=== PATIENT | male | born 1975 | race Hispanic/Latino ===

== ENCOUNTER 2022-05-09 21:39 | Emergency (ER) | payer OTHER ==
--- OUTSIDE RECORDS SUMMARY | 2022-05-09 21:48 | XMS REPORT | Continuity of Care Document ---
:[address] [facility] t Address [address] Parra [address] [place] [id number] Care Team Providers Name Role Phone No MD, Pcp Primary Care Physician Unavailable Senait Bean Attending Clinician Unavailable Kristy OWENS APRN, [place] Attending Clinician Unknown, Physician Attending Clinician Unavailable SHARONDA WAGNER APRN Attending Clinician Unavailable SARKIS RAMIREZ M.D. Attending Clinician Unavailable David Vogt Attending Clinician DAVID VOGT M.D. Attending Clinician Unavailable Sarkis Ramirez Attending Clinician Sharonda Wagner Attending Clinician Unavailable SHARONDA WAGNER, IKE Attending Clinician Unavailable Helga Paige Attending Clinician JIMBO HUMPHRIES M.D. Attending Clinician Unavailable Kevin Sosa Attending Clinician Luz Bishop Attending Clinician Sarkis Ramirez Admitting Clinician Helga Paige Admitting Clinician Jackie Dinh Admitting Clinician Luz Bishop Admitting Clinician Payers Payer Name Policy Type Policy Number Effective Date Expiration Date [place] MEDICARE PART A [id number] 2018 AND B 00:00:00 Problems Condition Condition Condition Status Onset Resolution Last Treating Co mments Source Name Details Category Date Date Treatment Clinician Date BENIGN BENIGN Diagnosis Active 2017-042018-08-01 Me moria PROSTATIC PROSTATIC 05-03 06:15:00 l HYPERPLASI HYPERPLASI 00:00: He kanwal A WITH A WITH 00 LOWER LOWER Active 03/03/2018 [facility] LOCALIZATI LOCALIZAT Diagnosis Active 2018-02-11 Memoria ON-RELATED ION-RELATE 01-23 10:44:00 l (FOCAL) D (FOCAL) 00:00: Maicol charles (PARTIAL) (PARTIAL) 00 S S Active 01/23/2018 [facility] I63.9 - I63.9 - Diagnosis Active 2017-10-17 Memoria CEREBRAL CEREBRAL 05-15 11:30:00 l INFARCTION INFARCTION 00:01: He kanwal , , 00 UNSPECIFI UNSPECIFI Active 05/15/2017 [facility] [place] CHEST CHEST Diagnosis Active 2015-12-22 Mem oria PAIN.SOB PAIN.SOB 12-21 12:19:00 l Active 00:00: Carl 12/22/2015 [facility] NUMBNESS NUMBNESS Diagnosis Active 2015-12-27 Memoria Active 12-21 14:25:00 l 12/22/2015 00:00: Maiocl charles [address] SHIMA SHIMA Diagnosis Active 2015-10-13 Memoria BILLING BILLING 10-12 23:10:00 l LFLT #2897 LFLT #2897 00:00: Fidel schofield Active 00 10/13/2015 [facility] CVA CVA Diagnosis Active 2015-10-21 Mem oria Active 10-12 13:00:00 l 10/13/2015 00:00: Maicol charles [address] CVA VS NOS CVA VS Diagnosis Active 2015-10-21 Memoria SEIZURE NOS - 13:15:00 l SEIZURE 00:00: Carl Active 00 09/27/2015 [facility] Personal Personal Problem 2018-08-29 Memoria history of history of 11:05:28 l nicotine nicotine Maicol n dependence dependence 08/29/2018 [facility] Depressive Depressiv Problem Resolve 2018-08-29 Memoria disorder e disorder d 11:05:28 l (disorder) (disorder) He rmann Resolved Problem 08/29/2018 [facility], RAYMUNDO Henry, RAYMUNDO [place] Diabetes Diabetes Problem Resolve 2018-08-29 Memoria mellitus mellitus d 11:05:28 l (disorder) (disorder) He rmann Resolved Problem 08/29/2018 per patient's , DMII has been resolved for over 1 year [facility] [place] Hypertensi Hypertens Problem Resolve 2018-08-29 Memoria ve yuki d 11:05:28 l disorder, disorder, Herm donnie systemic systemic arterial arterial (disorder) (disorder) Resolved Problem 08/29/2018 [facility], RAYMUNDO Henry, RAYMUNDO [place] Posttrauma Problem Resolve 2018-08-29 Memoria tic stress Posttrauma d 11:05:28 l disorder tic stress Herm donnie (disorder) disorder (disorder) Resolved Problem 08/29/2018 [facility], RAYMUNDO Henry, RAYMUNDO [place] Seizure Seizure Problem Resolve 2018-08-29 M emoria (finding) (finding) d 11:05:28 l Resolved Carl Problem 08/29/2018 last seizure in 2018 [facility], RAYMUNDO Henry, RAYMUNDO [place] Cerebrovas Cerebrova Problem Resolve 2018-08-29 Memoria cular scular d 11:05:28 l accident accident Maicol n (disorder) (disorder) Resolved Problem 08/29/2018 residual right hand weakness [facility], RAYMUNDO Henry, RAYMUNDO [place] Transient Transient Problem Resolve 2018-08-29 Memoria ischemic ischemic d 11:05:28 l attack attack Carl (disorder) (disorder) Resolved Problem 08/29/2018 [facility], RAYMUNDO Henry, RAYMUNDO [place] CEREBRAL CEREBRAL Diagnosis Active 2015-10-21 Memoria INFARCTION INFARCTION 13:15:00 l , , Carl UNSPECIFIE UNSPECIFIE D D Active [facility] CEREBELLAR CEREBELLA Diagnosis Active 2015-10-21 Memoria STROKE R STROKE 13:00:00 l SYNDROME SYNDROME Maicol n Active [facility] ILLNESS, ILLNESS, Diagnosis Active 2015-12-27 Memoria UNSPECIFIE UNSPECIFIE 14:25:00 l D D Active Carl [facility] [id number] Type 2 Problem Active Common diabetes Spirit mellitus [facility] long-term current use of insulin [id number] Episode of Problem Active Co mmon recurrent Spirit major - [facility] depressive [facility] disorder, [facility] unspecifie [facility] Center depression episode severity [id number] Essential Problem Active Comm on (primary) Spirit hypertensi - [facility] on [facility] [id number] Seizure Problem Active Commo n disorder [facility] Gastroesop GERD Problem Active Commo n hageal without Spirit reflux esophagiti - [facility] disease s [facility] Primary Primary Problem Active Common insomnia insomnia [facility] [id number] CANDE Problem Active Common (generaliz Spirit ed anxiety - [facility] disorder) [facility] [id number] Mixed Problem Active Common hyperlipid [facility] emia [facility] [id number] Balanitis Problem Active Comm on Spirit [facility] No known No known Disease UT active active Health problems problems History of History of Problem Resolve UT type 2 type 2 d Physici diabetes diabetes ans mellitus mellitus History of History of Problem Resolve UT hypertensi hypertensi d Ph ysici on on ans Hyperlipid Hyperlipid Problem Active U T emia emia Physici ans JEAN JEAN Problem Active UT (obstructi (obstructi Ph ysici ve sleep ve sleep ans apnea) apnea) Pseudobulb Pseudobulb Problem Active U T ar affect ar affect Phys ici ans Insomnia Insomnia Problem Active UT Physici ans Sleep Sleep Problem Active UT apnea apnea Physici ans Cognitive Cognitive Problem Active UT impairment impairment Ph ysici ans 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 complex complex partial partial seizures, seizures, not not intractabl intractabl e, without e, without status status epilepticu epilepticu s s Essential Essential Problem Active UT (primary) (primary) Phys ici hypertensi hypertensi an s on on 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 complex complex partial partial seizures, seizures, intractabl intractabl e, without e, without status status epilepticu epilepticu s s Preoperati Preoperati Problem Active U T ve ve Physici evaluation evaluation an s of a of a medical medical condition condition to rule to rule out out surgical surgical contraindi contraindi cations cations (TAR (TAR required) required) Erectile Erectile Problem Active UT dysfunctio dysfunctio Ph ysici n n ans Lower Lower Problem Active UT urinary urinary Physici tract tract ans symptoms symptoms (LUTS) (LUTS) BPH BPH Problem Active UT (benign (benign Physici prostatic prostatic ans hyperplasi hyperplasi a) a) Partial Partial Problem Active UT seizures seizures Physic i ans 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 Family History Family Member Diagnosis Comments Start Date Stop Date Source Mother Family history of Unknown [facility] Physicians and unspecified causes of morbidity Father Family history of Unknown [facility]icians and unspecified causes of morbidity Social History Social Habit Start Date Stop Date Quantity Comments Source History of Common Spirit - Tobacco Use [facility] Sex Assigned At Common Sp katy - [facility] Tobacco use and 2022-04-11 2022-04-11 Smokeless tobacco [facility] exposure 00:00:00 00:00:00 non-user Exposure to 2022-03-31 2022-04-10 Not sure [facility] SARS-CoV-2 00:00:00 12:56:00 (event) Social History 2018-07-23 2018-07-23 [facility] 16:50:40 16:50:40 Smoking Status Start Date Stop Date Source Tobacco smoking [facility] consumption unknown Never smoked tobacco [facility] Former Smoker 2022-01-04 00:00:00 2022-01-04 Common Spiri t - [facility] 00:00:00 [facility] Medications Ordered Filled Start Stop Current Ordering Indication Dosage Frequency Signature Comments Components Source Medication Medication Date Date Medication? Clinician (SIG) Name Name Mupirocin 2 Mupirocin 2 2021- No 1{appli BID Mupirocin % % 01-04 cation} 2 % 00:00: 00:00 00 :00 zolpidem Yes QD Take by UT (Ambien) 10 8-25 mouth at Heal th MG tablet 11:51: night if 42 needed. sertraline Yes 100mg QD Take 100 UT (Zoloft) 8-25 mg by Health 100 MG 11:50: mouth 1 tablet 59 (one) time each day. Nutritional Yes Take by UT Supplements 8-25 mouth. Health (VITAMIN D 11:50: BOOSTER PO) 27 amLODIPine Yes QD Take by UT (Norvasc) 8-25 mouth 1 Health 10 MG 11:49: (one) time tablet 46 each day. hydrALAZINE Yes Take by UT (Apresoline 8-25 mouth. [facility] ) 10 MG 11:49: tablet 21 metFORMIN Yes 850mg Take 850 UT (Glucophage 8-25 mg by [facility] ) 850 MG 11:49: mouth in tablet 03 the morning and 850 mg in the evening. Take with meals. Nystatin-Tr Nystatin-Tr 2021- No 1{appli BID Nystatin-T iamcinolone iamcinolone 8-15 08-29 cation} riamcinolo 231034-7.1 [id number] 00:00: 00:00 ne UNIT/GM UNIT/GM 00 :00 [id number] UNIT/GM levETIRAcet Yes UT am XR 3-16 Health (Keppra XR) 00:00: 750 mg 00 tablet sustained-r elease 24 hour 24 hr tablet Topiramate Topiramate Yes SHARONDA Take 25 mg UT 25 MG Oral 25 MG Oral 4-09 OKPALA po qhs x 1 Physici Tablet Tablet 00:00: FORK LIFT TECHNICIAN week, then ans 00 50 mg q day for 1 week and then 50 mg po bid Ibuprofen Ibuprofen Yes SANDYACHI TAKE ONE UT 600 MG Oral 600 MG Oral 4-08 OKPALA TABLET Physici Tablet Tablet 00:00: FORK LIFT TECHNICIAN ONCE A DAY ans 00 NEEDED Omeprazole 2019-0 Yes 20mg 20 mg. UT 20 MG 3-16 Health Tablet 00:00: Delayed 00 Release Dispersible Norvasc 10 Norvasc 10 Yes QD TAKE 1 UT MG Oral MG Oral 3-16 TABLET Physici Tablet Tablet 00:00: DAILY ans 00 DIRECTED. Bystolic 10 Bystolic 10 2019- Yes 1 QD TAKE 1 UT MG Oral MG Oral 3-16 TABLET Physici Tablet Tablet 00:00: DAILY. ans 00 Omeprazole Omeprazole Yes Q0.5D TAKE 1 UT 20 MG Oral 20 MG Oral 3-16 TABLET P hysici Tablet Tablet 00:00: TWICE ans Delayed Delayed 00 DAILY. Release Release Disintegrat Disintegrat ing ing Ciprofloxac Yes 500 mg = 1 Memoria in 500 MG 4-05 tab, PO, l Oral Tablet 13:34: Q12H, for H ermann [Cipro] 00 UTI, X 3 day, # 6 tab, 0 Refill(s) Acetaminoph No 1 - 2 tab, Memoria en 300 MG / 4-05 PO, Q4H, l Codeine 13:34: PRN Pain, Chloé nn Phosphate 00 X 2 day, # 30 MG Oral 20 tab, 0 Tablet Refill(s) [Tylenol with Codeine #3] Phenazopyri No 200 mg = 1 Memoria dine 4-05 tab, PO, l hydrochlori 13:34: TID, PRN He rmann de 200 MG 00 Dysuria, X Oral Tablet 2 day, # 6 [Pyridium] tab, 0 Refill(s) ePHEDrine No Route: IV, Me moria (ANES) 08-01 Drug form: l 13:18: INJ, ONCE, Carl 00 Stop date: 08/01/18 8:18:00 CDT ondansetron No Route: IV, Memoria (ANES) 08-01 Drug form: l 13:18: INJ, ONCE, [place] [address] Stop date: 08/01/18 8:18:00 CDT midazolam 2018- No Route: IV, Me moria (ANES) 08-01 Drug form: l 13:14: SOLN, Carl 00 ONCE, Stop date: 08/01/18 8:14:00 CDT fentaNYL 2018- No Route: IV, Mem oria (ANES) 08-01 Drug form: l 13:14: INJ, ONCE, [place] Stop date: 08/01/18 8:14:00 CDT propofol 2019-0 No Route: IV, Mem oria (ANES) - Drug form: l 13:14: INJ, ONCE, Stop date: 08/01/18 8:14:00 CDT ceFAZolin No Route: IV, Me moria (ANES) 4-05 Drug form: l 13:14: INJ, ONCE, Stop date: 08/01/18 8:14:00 CDT lidocaine 2018- No Route: IV, Me moria (ANES) 08-01 Drug form: l 13:14: INJ, ONCE, Stop date: 08/01/18 8:14:00 CDT Ondansetron 2018- No Notes: Lito az -05 (Same as: l 13:08: Zofran) MEDICATION WASTE Product Size: 4 mg Product Wasted: ___ mg Labetalol No 10 mg, 2 Lito az 4-05 mL, Route: l 13:08: IVP, Drug form: INJ, Q5Min, Dosing Weight 106.818, kg, PRN Elevated BP, Start date: 08/01/18 8:08:00 CDT, Duration: 5 doses or times, Stop date: 08/02/18 0:00:00 CDT Oxycodone No Notes: Memori a 4-05 (Same as: l 13:08: Roxicodone ) Flumazenil 2018- No Notes: Memor ia -05 (Same as: l 13:08: Romazicon) Hydromorpho No Notes: Lito az ne 4-05 Same as l 13:08: Dilaudid Naloxone 2018- No Notes: Memoria 4-05 Same as l 13:08: Narcan ciprofloxac No Route: IV, Memoria in (ANES) 2 05 Drug form: l mg 12:43: INJ, Start date: 08/01/18 7:43:00 CDT, Stop date: 08/01/18 8:43:00 CDT Lactated No Route: IV, Mem oria Ringers 4-05 Total l Injection 12:34: Volume: Chloé nn IV (ANES) 00 1,000, 1000 mL Start date: 08/01/18 7:34:00 CDT, Stop date: 08/01/18 8:34:00 CDT Tylenol 2018- No 1,000 mg, Memor ia 08-01 Route: PO, l 11:57: ONCE, Dosing Weight 104.545, kg, Start date: 08/01/18 6:57:00 CDT, Stop date: 08/01/18 6:57:00 CDT Nuedexta 2018-0 Yes PO, Q12H, Lito az 3-27 0 l 16:59: Refill(s) Carl clopidogrel 2018-0 Yes 75 mg = 1 M emoria 75 MG Oral 3-27 tab, PO, l Tablet 16:59: Daily, Marcellus Henry [Plavix] 00 90 tab, 3 Refill(s) amitriptyli 2019-0 Yes 50 mg = 1 M emoria ne 50 mg 3-27 tab, PO, l oral tablet 16:59: Bedtime, Marcellus Henry 00 90 tab, 0 Refill(s) lacosamide 2019-0 Yes 200 mg = 1 M emoria 200 MG Oral 3-27 tab, PO, l Tablet 16:59: BID, # 30 Maicol charles [Vimpat] 00 day, 0 Refill(s) Eszopiclone 2018-0 Yes 3 mg = 1 Me moria 3 MG Oral 3-27 tab, PO, l Tablet 16:59: Bedtime, Carl [Lunesta] PRN for insomnia, # 30 tab, 0 Refill(s) Prazosin 2019-0 Yes 6 mg, PO, Lito az 3-27 QPM, 0 l 16:59: Refill(s) dexlansopra 2018-0 Yes 60 mg = 1 M emoria zole 60 MG 3-27 cap, PO, l Enteric 16:59: Daily, Marcellus charles Coated 30 cap, 0 Capsule Refill(s) [Dexilant] alfuzosin 2019-0 Yes 10 mg = 1 Mem oria 10 mg oral 3-27 tab, PO, l tablet, 16:59: Daily, # Maicol n extended 00 90 tab, 0 release Refill(s) QUEtiapine Yes 100 mg = 1 M emoria 100 mg oral 3-27 tab, PO, l tablet 16:59: Bedtime, # Chloé nn 00 30 tab, 1 Refill(s) nebivolol Yes 10 mg = 1 Mem oria 10 MG Oral 3-27 tab, PO, l Tablet 16:59: QAM, # 30 Maicol n [Bystolic] 00 tab, 0 Refill(s) donepezil Yes 10 mg = 1 Mem oria 10 mg oral 3-27 tab, PO, l tablet 16:59: QPM, # 90 Maicol n 00 tab, 1 Refill(s) levETIRAcet levETIRAcet Yes SARKIS 2 Q0.5D TAKE 2 UT am ER 750 am ER 750 2-01 RAMIREZ TABLET Physici MG Oral MG Oral 00:00: M.D. TWICE ans Tablet Tablet 00 DAILY Extended Extended Release 24 Release 24 Hour Hour cloBAZam 10 cloBAZam 10 Yes SARKIS Q0.5D TAKE 2 UT MG Oral MG Oral 2-01 RAMIREZ TABLET Phy sici Tablet Tablet 00:00: M.D. Twice ans 00 daily sertraline 2017-04 Yes 100 mg = 1 M emoria 100 mg oral 0-13 tab, PO, l tablet 23:24: Daily, 0 Carl 00 Refill(s) clopidogrel Yes TAKE 1 UT (Plavix) 75 4-13 TABLET Health MG tablet 00:00: DAILY 00 Clopidogrel Clopidogrel Yes MUNACHI 1 QD TAKE 1 UT Bisulfate Bisulfate 4-13 OKPALA TABLET P hysici 75 MG Oral 75 MG Oral 00:00: FORK LIFT TECHNICIAN DAILY ans Tablet Tablet 00 Vimpat 150 Vimpat 150 2016-04 Yes SARKIS 2 Q0.5D TAKE 2 UT MG Oral MG Oral 2-15 RAMIREZ TABLET Phy sici Tablet Tablet 00:00: M.D. TWICE ans 00 DAILY Donepezil Donepezil 2016-04 Yes MUNACHI QD TAKE 1 UT HCl - 10 MG HCl - 10 MG 2-04 OKPALA TABLET Physici Oral Tablet Oral Tablet 00:00: FORK LIFT TECHNICIAN DAILY AT ans 00 BEDTIME Alfuzosin Alfuzosin Yes RUN VOGT 1 QD TAKE 1 UT HCl ER 10 HCl ER 10 8-24 M.D. TABLET Phy sici MG Oral MG Oral 00:00: DAILY. ans Tablet Tablet 00 Extended Extended Release 24 Release 24 Hour Hour Norvasc No Notes: Memoria 12-23 (Same as: l 14:00: Norvasc) Metformin No 500 mg, 1 Mem oria hydrochlori 12-23 tab, l de 500 MG 14:00: Route: PO, He ann Oral Tablet 00 Drug form: TAB, Daily, Dosing Weight 101.364, kg, Start date: 12/24/15 9:00:00 CDT, Duration: 30 day, Stop date: 01/22/16 9:00:00 CDT atorvastati No Notes: Lito az n 12-23 Same as l 02:00: Lipitor Amitriptyli No Notes: Lito az ne 12-23 (Same as: l 02:00: Elavil) Celexa No Notes: Memoria 12-22 (Same As: l 18:00: CeleXA) Levetiracet Yes 750 mg = 1 Memoria am 750 MG 12-22 tab, PO, l Oral Tablet 16:27: Q12H, # 60 Carl [Keppra] 00 tab, 3 Refill(s) Saline No Notes: Memoria Flush 0.9% 12-22 Same as: l 14:00: BD Posiflush Sterile Docusate No Notes: Memoria 8- (Same as: l 14:00: Colace) (Do Not Crush) pantoprazol No Notes: For Memoria e - IV push l 14:00: reconstitu te with 10 ml 0.9% sodium chloride and push over 2 minutes. (Same as: Protonix) Levetiracet No Notes: Lito az am 750 MG 12-22 (Same l Oral Tablet 14:00: as:Keppra) Carl [Keppra] 00 Keppra No Notes: Memoria 8- Same as l 14:00: Keppra Mix with 100 mL NS, LR or D5W MEDICATION WASTE Product Size: 500 mg Product Wasted: ___ mg Eliquis No Notes: Memoria 12-22 Same as: l 14:00: Eliquis Levetiracet No 500 mg, 1 M emoria am 500 MG 12-22 tab, l Oral Tablet 13:58: Route: PO, Carl [Keppra] 00 ONCE, Dosing Weight 101.364, kg, Start date: 12/23/15 8:58:00 CDT, Stop date: 12/23/15 8:58:00 CDT Metformin Yes 500 mg = 1 Me moria hydrochlori 12-22 tab, PO, l de 500 MG 12:06: Daily, Maicol n Oral Tablet 00 take with a meal, # 30 tab, 1 Refill(s) Versed No Notes: Memoria 12-22 (Same as: l 05:11: Versed) MEDICATION WASTE Product Size: 5 mg Product Wasted: ___ mg Saline No Notes: Memoria Flush 0.9% 12-22 Same as: l 03:26: BD Posiflush Sterile Acetaminoph No Notes: Do M emoria en 12-22 not exceed l 03:26: 4 gm/day. (Same as: Tylenol) Bisacodyl No Notes: Memori a 12-22 (Same As: l 03:26: Dulcolax, Bisco-Lax) enalapril No Notes: Memori a 12-22 (Same as: l 03:26: Vasotec-IV ) Labetalol No 105 mmHg, Me moria 12-22 Priority: l 03:26: Routine, [place] Start date: 12/22/15 22:26:00 CDT, Duration: 30 day, Stop date: 01/21/16 22:25:00 CDT Sodium No 1,000 mL, Memori a Chloride 12-22 Rate: 75 l 0.154 03:26: ml/hr, [place] MEQ/ML 00 Infuse Injectable over: 13.3 Solution hr, Route: IV, Dosing Weight 101.364 kg, Total Volume: 1,000, Start date: 12/22/15 22:26:00 CDT, Duration: 30 day, Stop date: 01/21/16 22:25:00 CDT BD Normal No Notes: Memori a Saline 12-22 (Same as: l Flush 02:00: BD Carl 00 Posiflush) Iohexol No Notes: Memoria 12-21 (same l 17:55: as:Omnipaq Carl 00 ue 350). Saline No Notes: Memoria Flush 0.9% 12-21 (Same as: l 17:14: BD Carl 00 Posiflush) Nuedexta Nuedexta Yes MUNACHI take 1 UT 20-10 MG 20-10 MG 12-19 OKPALA capsule Ph ysici Oral Oral 00:00: FORK LIFT TECHNICIAN twice a ans Capsule Capsule 00 day atorvastati Yes TAKE 2 UT n (Lipitor) 11-29 TABLET Health 40 MG 00:00: BEDTIME tablet 00 Atorvastati Atorvastati Yes 2 TAKE 2 UT n Calcium n Calcium 11-29 TABLET Phy sici 40 MG Oral 40 MG Oral 00:00: BEDTIME ans Tablet Tablet 00 apixaban 5 Yes 5 mg = 1 Mem oria mg oral 6-21 tab, PO, l tablet 13:19: Q12H, # 60 Chloé nn 00 tab, 2 Refill(s) atorvastati Yes 80 mg = 2 M emoria n 40 mg 6-21 tab, PO, l oral tablet 13:19: Bedtime, # [place] 00 90 tab, 0 Refill(s) Eliquis No Notes: Memoria 6-21 Same as: l 02:00: Eliquis Carl Magnesium No Notes: Memori a Sulfate -20 WASTE: F/P l 15:00: - Sink; E Carl 00 - Municipal Trash Bin Nexium No 40 mg, Memoria 6-20 Route: PO, l 14:00: Daily, [place] 00 Dosing Weight 105, kg, Start date: 10/17/15 9:00:00 CDT, Duration: 30 day, Stop date: 11/15/15 9:00:00 CDT Calcium No Notes: Memoria Gluconate 10-16 WASTE: F/P l 13:46: - Sink; E Carl 00 - Municipal Trash Bin Protonix No 40 mg, 1 Memor ia 6-20 tab, l 12:30: Route: PO, Carl 00 Drug form: ECTAB, Before Breakfast, Start date: 10/17/15 7:30:00 CDT, Duration: 30 day, Stop date: 11/15/15 7:30:00 CDT sodium No 1,000 mL, Memori a chloride 20 Rate: 75 l 0.9% 1000 05:01: ml/hr, Maicol n ml INJ 00 Infuse 1,000 mL over: 13.3 hr, Route: IV, Dosing Weight 105 kg, Total Volume: 1,000, Start date: 10/17/15 0:01:00 CDT, Duration: 30 day, Stop date: 11/16/15 0:00:00 CDT Acetaminoph No Notes: Do M emoria en 18 not exceed l 19:59: 4 gm/day. [place] (Same as: Tylenol) Docusate No Notes: Memoria 6-18 (Same as: l 17:00: Colace) Carl (Do Not Crush) atorvastati No Notes: Lito az n -18 Same as l 02:00: Lipitor [place] 00 iodixanol No Notes: Memori a -17 (Same as: l 21:26: Visipaque) Carl 00 . WASTE: F/P - Black; E - Municipal Trash Bin heparin No 500 mL, Memoria additive 6-17 Rate: l 25,000 unit 19:12: 23.24 Chloé nn [14 00 ml/hr, unit/kg/hr] Infuse + Premix over: 21.5 Diluent hr, Route: Dextrose 5% IV, Dosing 500 mL Weight 83 kg, Total Volume: 500 mL, Start date: 10/14/15 14:12:00 CDT, Duration: 30 day, Stop date: 11/13/15 14:11:00 CDT Levetiracet Yes 500 mg = 1 Memoria am 500 MG 6-17 tab, PO, l Oral Tablet 16:37: BID Maicol n [Keppra] Citalopram Yes 20 mg = 1 Me moria 20 MG Oral 6-17 tab, PO, l Tablet 16:37: Daily Carl [Celexa] Amlodipine Yes 10 mg = 1 Me moria 10 MG Oral 6-17 tab, PO, l Tablet 16:37: Daily Carl [Norvasc] atorvastati No 80 mg = 2 M emoria n 40 mg 6-17 tab, PO, l oral tablet 16:37: Bedtime Her sheehan amitriptyli Yes 10 mg = 1 M emoria ne 10 mg 6-17 tab, PO, l oral tablet 16:37: Bedtime Her sheehan Aspirin 325 No 325 mg = 1 Memoria MG Oral 6-17 tab, PO, l Tablet 16:37: Daily Carl Insulin Yes 8 unit, Memoria Glargine 6-17 SUB-Q, BID l 100 UNT/ML 16:37: [place] Injectable 00 Solution [Lantus] nebivolol No 10 mg = 1 Mem oria 10 MG Oral 6-17 tab, PO, l Tablet 16:37: Daily [place] [Bystolic] warfarin No 7.5 mg = 1 Mem oria 7.5 mg oral 6-17 tab, PO, l tablet 16:37: Daily, 0 Carl 00 Refill(s) Nexium Yes 40 mg, PO, Memor ia 6-17 Daily, 0 l 16:37: Refill(s) [place] aspirin 325 No Notes: (Do Memoria mg tablet, 6-17 Not Crush) l enteric 14:06: Do not Carl coated 00 crush or chew. Celexa No 10 mg, 1 Memoria 6-17 tab, l 14:00: Route: PO, Carl 00 Drug form: TAB, Daily, Dosing Weight 105, kg, Start date: 10/14/15 9:00:00 CDT, Duration: 30 day, Stop date: 11/12/15 9:00:00 CDT Keppra No Notes: Memoria 6-17 (Same l 14:00: as:Rosariora) Saline No Notes: Memoria Flush 0.9% 10-13 Same as: l 14:00: BD Posiflush Sterile Aspirin No 325 mg, Memoria 6-17 Route: PO, l 14:00: Drug form: TAB, Daily, Dosing Weight 105, kg, Start date: 10/14/15 9:00:00 CDT, Duration: 30 day, Stop date: 11/12/15 9:00:00 CDT heparin No Notes: Memoria -17 porcine l 13:00: heparin Dextrose No 12.5 gm, Memor ia 50% Syringe 10-13 25 mL, l 11:42: Route: IVP, Drug Form: INJ, Dosing Weight 105, kg, PRN, PRN Abnormal Lab Result, Start date: 10/14/15 6:42:00 CDT, Duration: 30 day, Stop date: 11/13/15 6:41:00 CDT Regular No 60 units) Lito az Insulin, 10-13 WASTE: F/P l Human 100 11:42: - Black; E He rmann UNT/ML 00 - Injectable Municipal Solution Trash Bin Stable for 28 days at room temperatur e Expires in days from ____Date Labetalol No 10 mg, 2 Lito az 6-17 mL, Route: l 09:16: IVP, Drug form: INJ, Q15Min, Dosing Weight 115.909, kg, PRN Hypertensi on, Start date: 10/14/15 4:16:00 CDT, Duration: 30 day, Stop date: 11/13/15 4:15:00 CDT Hydralazine No Notes: Lito az 6-17 (Same as: l 09:16: Apresoline ) Push over 5 minutes Versed No Notes: Memoria 6-17 (Same as: l 08:25: Versed) MEDICATION WASTE Product Size: 5 mg Product Wasted: ___ mg Saline No Notes: Memoria Flush 0.9% 6-17 Same as: l 04:50: BD [place] Posiflush Sterile Labetalol No 105 mmHg, Me moria 6-17 Priority: l 04:50: Routine, Carl 00 Start date: 10/13/15 23:50:00 CDT, Duration: 30 day, Stop date: 11/12/15 23:49:00 CDT Sodium No 1,000 mL, Memori a Chloride 10-13 Rate: 75 l 0.154 04:50: ml/hr, [place] MEQ/ML 00 Infuse Injectable over: 13.3 Solution hr, Route: IV, Dosing Weight 115.909 kg, Total Volume: 1,000, Start date: 10/13/15 23:50:00 CDT, Duration: 30 day, Stop date: 11/12/15 23:49:00 CDT iodixanol No 99 mL, Memori a 6-17 Route: l 03:51: IVP, Drug Form: SOLN, kg, ONCALL, STAT, Start date: 10/13/15 22:51:00 CDT, Duration: 1 doses or times, Dose = 2.2ml/kg, Max dose = 100ml -- "To be infused by Radiology Staff ONLY" Saline No Notes: Memoria Flush 0.9% 6-17 (Same as: l 03:23: BD Carl 00 Posiflush) insulin Yes 10 unit, Memori a glargine 6-06 SUB-Q, l 100 16:44: Q12H, # 10 Carl units/mL 00 mL, 4 subcutaneou Refill(s) s solution insulin No 10 unit, Memori a glargine 6-06 SUB-Q, l 100 15:38: Q12H, # 10 Carl units/mL 00 mL, 1 subcutaneou Refill(s) s solution Citalopram Yes 10 mg = 1 Me moria 10 MG Oral 10-02 tab, PO, l Tablet 14:18: Daily, [place] [Celexa] 00 Weaning off Wellbutrin as thsi medication can lower seizure threshold. Currently on 100mg TID. Will start to wean off today- 100mg BID x 3 days, then 50mg BID x 3 days, then start Celexa 20mg qd, # 90 tab, 0 Refill(s) warfarin 5 Yes 5 mg = 1 Mem oria mg oral 6-06 tab, PO, l tablet 14:17: Daily, Carl 00 Please follow up with PCP, # 5 tab, 0 Refill(s) pantoprazol Yes 40 mg = 1 M emoria e 40 mg 6-06 tab, PO, l oral 14:04: Daily, # Carl enteric 00 60 tab, 0 coated Refill(s) tablet Levetiracet Yes 500 mg = 1 Memoria am 500 MG 6-06 tab, PO, l Oral Tablet 14:04: Q12H, # Her sheehan [Keppra] 00 120 tab, 0 Refill(s) atorvastati Yes 80 mg = 2 M emoria n 40 mg 6-06 tab, PO, l oral tablet 14:04: Bedtime, # [place] 00 180 tab, 0 Refill(s) Aspirin 325 Yes 325 mg = 1 Memoria MG Oral 6-06 tab, PO, l Tablet 14:04: Daily, # 7 Chloé nn 00 tab, 0 Refill(s) buPROPion Yes 100 mg = 1 Me moria 100 mg oral 6-06 tab, PO, l tablet 14:04: BID, 0 [place] 00 Refill(s) Warfarin No Notes: Karisoria 10-01 Nurse to l 22:00: ensure documentat ion of patient education per anticoagul ation policy. Avoid large intake of vitamin-K containing foods diet. WASTE: F/P - P Waste Black; E - P Waste Black (Same As: Coumadin) Tylenol No Notes: Do Memor ia 10-01 not exceed l 01:26: 4 gm/day. Carl 00 (Same as: Tylenol) Wellbutrin No Notes: Memor ia 09-30 (Same As: l 22:00: Wellbutrin ) Warfarin No Notes: Memoria 09-30 Nurse to l 22:00: ensure Carl 00 documentat ion of patient education per anticoagul ation policy. Avoid large intake of vitamin-K containing foods diet. WASTE: F/P - P Waste Black; E - P Waste Black (Same As: Coumadin) Mag-Ox 400 No Notes: Memor ia 09-29 (Same as: l 22:00: Mag-Ox [place] 00 400) Magnesium oxide [id number] g elemental magnesium Dose=____m g magnesium oxide (___mg elemental magnesium) Lantus No Notes: Memoria 09-29 Same as l 21:30: Lantus Carl 00 Solostar PEN Do not hold insulin without contacting prescriber "single patient use only" WASTE: F/P - Black; E - Municipal Trash Bin Stable for 28 days at room temperatur e. Expires in days from ____Date Insulin, No Notes: Karisoria Aspart, 09-29 Roll in l Human 21:01: palms of hands gently; Do not shake vigorously . (Same as: NovoLOG) "single patient use only" WASTE: F/P - Black; E - Municipal Trash Bin Stable for 28 days at room temperatur e. Expires in days from ____Date Glucagon No 1 mg, Memoria 09-29 Route: IM, l 21:01: Drug form: Carl 00 PDR/INJ, PRN, Dosing Weight 104.545, kg, PRN Blood Glucose Results, Start date: 09/30/15 16:01:00 CDT, Duration: 30 day, Stop date: 10/30/15 16:00:00 CDT Dextrose No 12.5 gm, Memor ia 50% Syringe 09-29 25 mL, l 21:01: Route: Carl 00 IVP, Drug Form: INJ, Dosing Weight 104.545, kg, PRN, PRN Blood Glucose Results, Start date: 09/30/15 16:01:00 CDT, Duration: 30 day, Stop date: 10/30/15 16:00:00 CDT Warfarin No Notes: Janice 09-29 Nurse to l 20:21: ensure documentat ion of patient education per anticoagul ation policy. Avoid large intake of vitamin-K containing foods diet. WASTE: F/P - P Waste Black; E - P Waste Black (Same As: Coumadin) Levetiracet No Notes: Lito az am 500 MG 09-29 (Same l Oral Tablet 02:00: as:Keppra) [Keppra] 00 Wellbutrin No Notes: Memor ia 09-28 (Same As: l 22:00: Wellbutrin ) Pneumovax No Notes: Memori a 23 09-28 (Same as: l 21:00: Pneumovax ) Refrigerat e Tylenol No Notes: Do Memor ia 09-28 not exceed l 20:07: 4 gm/day. Carl 00 (Same as: Tylenol) Norvasc No Notes: Memoria 09-28 (Same as: l 18:55: Norvasc) Protonix No 40 mg, 1 Memor ia 09-28 tab, l 14:00: Route: PO, Drug form: ECTAB, Daily, Start date: 09/29/15 9:00:00 CDT, Duration: 30 day, Stop date: 10/28/15 9:00:00 CDT Nexium No 40 mg, Memoria 09-28 Route: PO, l 14:00: Drug form: 00 ECCAP, Daily, Dosing Weight 104.545, kg, Start date: 09/29/15 9:00:00 CDT, Duration: 30 day, Stop date: 10/28/15 9:00:00 CDT Bupropion No 150 mg, 1 Mem oria 09-28 tab, l 14:00: Route: PO, Drug form: ERTAB, BID, Dosing Weight 104.545, kg, Start date: 09/29/15 9:00:00 CDT, Duration: 30 day, Stop date: 10/28/15 17:00:00 CDT Norvasc No Notes: Memoria 09-28 (Same as: l 14:00: Norvasc) Carl 00 Bystolic No Notes: Memoria 09-28 (same as: l 14:00: Bystolic) Carl 00 Levetiracet No Notes: Lito az am 500 MG 09-28 Same as: l Oral Tablet 02:00: Keppra Herm donnie [Keppra] Amitriptyli No Notes: Lito az ne 09-28 (Same as: l 02:00: Elavil) Tylenol No Notes: Do Memor ia 09-27 not exceed l 22:50: 4 gm/day. (Same as: Tylenol) pneumococca No Notes: Lito az l capsular 09-27 (Same as: l polysacchar 17:27: Pneumovax H ermann raina type 1 00 23) vaccine / Refrigerat pneumococca e l capsular polysacchar raina type 10A vaccine / pneumococca l capsular polysacchar raina type 11A vaccine / pneumococca l capsular polysacchar raina type 12F vaccine / pneumococca l capsular polysacchar Aspirin No Notes: Memoria 09-27 Take with l 17:03: food. Dextrose No 25 gm, 50 Lito az 50% Syringe 09-27 mL, Route: l 12:16: IVP, Drug Form: INJ, Dosing Weight 104.545, kg, PRN, PRN Blood Glucose Results, Start date: 09/28/15 7:16:00 CDT, Duration: 30 day, Stop date: 10/28/15 7:15:00 CDT Glucagon No 1 mg, Memoria 09-27 Route: IM, l 12:16: Drug form: PDR/INJ, PRN, Dosing Weight 104.545, kg, PRN Blood Glucose Results, Start date: 09/28/15 7:16:00 CDT, Duration: 30 day, Stop date: 10/28/15 7:15:00 CDT Insulin No 60 units) Lito az regular 09-27 WASTE: F/P l 12:16: - Black; E - Municipal Trash Bin Stable for 28 days at room temperatur e Expires in days from ____Date Aspirin 300 No Notes: Lito az MG Rectal 09-27 Refrigerat l Suppository 12:14: e. Maicol n 00 normal No 1,000 mL, Memori a saline 0.9% 09-27 Rate: 75 l IV 1,000 mL 08:58: ml/hr, Infuse over: 13.3 hr, Route: IV, Dosing Weight 104.545 kg, Total Volume: 1,000, Start date: 09/28/15 3:58:00 CDT, Duration: 30 day, Stop date: 10/28/15 3:57:00 CDT Saline No Notes: [facility]oria Flush 0.9% 09-27 (Same as: l 02:00: BD Posiflush) atorvastati No Notes: Lito az n 09-27 (Same as: l 02:00: Lipitor) Levetiracet No Notes: Lito az am 500 MG 09-27 (Same l Oral Tablet 02:00: as:Keppra) [Keppra] Keppra No Notes: Memoria 09-27 Same as l 02:00: Keppra Mix with 100 mL NS, LR or D5W MEDICATION WASTE Product Size: 500 mg Product Wasted: ___ mg Ofirmev No Notes: Memoria 09-27 Infuse l 00:59: over 15 minutes Do not exceed 4gm/day of acetaminop hen MEDICATION WASTE Product Size: 1000 mg Product Wasted: 0 mg Midazolam No Notes: Memori a -31 (Same as: l 21:59: Versed) MEDICATION WASTE Product Size: 5 mg Product Wasted: ___ mg Labetalol No 10 mg, 2 Lito az 5-31 mL, Route: l 21:03: IVP, Drug form: INJ, Q5Min, Dosing Weight 104.545, kg, PRN Elevated BP, Start date: 09/27/15 16:03:00 CDT, Duration: 2 doses or times, Stop date: Limited # of times heparin No Notes: Memoria 5-31 porcine l 21:00: heparin [place] 00 Omnipaque No 150 ml, Memor ia 300 5-31 Route: l 19:41: INTRAARTER [place] 00 IAL, Dosing Weight 104.545, kg, ONCE, Start date: 09/27/15 14:41:00 CDT, Stop date: 09/27/15 14:41:00 CDT Amlodipine Yes 10 mg = 1 Me moria 10 MG Oral 5-31 tab, PO, l Tablet 19:26: Daily, # Carl [Norvasc] 00 30 tab, 1 Refill(s) nebivolol Yes 10 mg = 1 Mem oria 10 MG Oral 5-31 tab, PO, l Tablet 19:26: Daily, # Carl [Bystolic] 00 30 tab, 0 Refill(s) Esomeprazol Yes 40 mg = 1 M emoria e 40 MG 5-31 cap, PO, l Enteric 19:26: Daily, # Maicol n Coated 00 30 cap, 0 Capsule Refill(s) [Nexium] buPROPion No 150 mg = 1 Me moria 150 mg oral 5-31 tab, PO, l tablet, 19:26: BID, # 180 Herm donnie extended 00 tab, 0 release Refill(s) Hydrochloro No 12.5-25mg, Memoria thiazide / 5-31 PO, Daily, l Triamterene 19:26: 0 Maicol n 00 Refill(s) amitriptyli Yes 10 mg = 1 M emoria ne 10 mg 5-31 tab, PO, l oral tablet 19:26: Bedtime, # Carl 00 30 day, 0 Refill(s) Ativan No 1 mg, Memoria 5-31 Route: l 18:00: IVP, Drug Carl 00 form: INJ, ONCE, Dosing Weight 113.636, kg, PRN Anxiety, Start date: 09/27/15 13:00:00 CDT INV SQ 0 No Route: Memoria regular 5-31 SUB-Q, l Insulin 17:00: Drug form: Herm donnie 00 INJ, Q6H, Start date: 09/27/15 12:00:00 CDT, Duration: 72 hr, Stop date: 09/30/15 6:00:00 CDT Aspirin 325 No Notes: (Do Memoria MG Enteric 5-31 Not Crush) l Coated 16:00: Do not Carl Tablet 00 crush or chew. heparin No 500 mL, Memoria additive 5-31 Rate: l 25,000 unit 15:57: 24.99 Chloé nn [14 00 ml/hr, unit/kg/hr] Infuse + Premix over: 20 Diluent hr, Route: Dextrose 5% IV, Dosing 500 mL Weight 89.25 kg, Total Volume: 500 mL, Start date: 09/27/15 10:57:00 CDT, Duration: 30 day, Stop date: 10/27/15 10:56:00 CDT Heparin - No 4,500 Memoria one time 5-31 unit, 4.5 l bolus for 15:57: mL, Route: He rmann DVT/PE 00 IV, Drug form: INJ, ONCE, Dosing Weight 113.636, kg, Priority: STAT, Start date: 09/27/15 10:57:00 CDT, Stop date: 09/27/15 10:57:00 CDT INV 2015-0 No 12.5 gm, Memoria Dextrose -31 25 mL, l 50% Syringe 15:40: Route: IV, 00 Drug form: INJ, PRN, PRN Other -See Comment, Start date: 09/27/15 10:40:00 CDT, Duration: 72 hr, Stop date: 09/30/15 10:39:00 CDT INV Sodium 2015-0 No 99 mL, Memor ia Chloride 09-26 Rate: Per l 0.9% 100 ml 15:40: Protocol, H ermann INJ 99 mL + 00 Dosing INV Study Weight Insulin/Michaela 113.636, cebo (no kg, Route: additive) IV, Total 100 unit Volume: 100, Start date: 09/27/15 10:40:00 CDT, Duration: 72 hr, Stop date: 09/30/15 10:39:00 CDT, Replace Every: 24 hr Labetalol No 105 mmHg, Me moria 5-31 Priority: l 15:28: Routine, Carl 00 Start date: 09/27/15 10:28:00 CDT, Duration: 30 day, Stop date: 10/27/15 10:27:00 CDT Saline No Notes: Memoria Flush 0.9% -31 (Same as: l 15:13: BD Posiflush) iodixanol No 100 mL, Memor ia 09-26 Route: l 14:02: IVP, Drug Carl 00 Form: SOLN, Dosing Weight 113.636, kg, ONCALL, STAT, Start date: 09/27/15 9:02:00 CDT, Duration: 1 doses or times, Dose = 2.2ml/kg, Max dose = 100ml -- "To be infused by Radiology Staff ONLY" Sodium No 1,000 mL, Memori a Chloride 09-26 1,000 l 0.154 13:42: ml/hr, Carl MEQ/ML 00 Infuse Injectable Over: 1 Solution hr, Route: IV, 1,000, Drug form: INJ, ONCE, Priority: STAT, Dosing Weight 113.636 kg, Start date: 09/27/15 8:42:00 CDT, Duration: 1 doses or times, Stop date: 09/27/15 8:42:00 CDT Saline No Notes: Memoria Flush 0.9% -31 (Same as: l 13:13: BD [place] 00 Posiflush) Omeprazole Omeprazole No BID Omeprazole 20 MG 20 MG 20 MG hydrALAZINE hydrALAZINE No 1{table TID hydrALAZIN HCl 10 MG HCl 10 MG t_with_ E HCl 10 food} MG QUEtiapine QUEtiapine No QD QUEtiapine Fumarate Fumarate Fumarate 100 MG 100 MG 100 MG Ambien 10 Ambien 10 No 1{table QD Ambien 10 MG MG t_at_be MG dtime_a s_neede d} amLODIPine amLODIPine No 1{table QD amLODIPine Besylate 10 Besylate 10 t} Besylate MG MG 10 MG Plavix 75 Plavix 75 No 1{table QD Plavix 75 MG MG t} MG metFORMIN metFORMIN No 1{table BID metFORMIN HCl 850 MG HCl 850 MG t_with_ HCl 850 MG a_meal} Keppra XR Keppra XR No 1{table BID Keppra XR 750 MG 750 MG t} 750 MG hydrALAZINE hydrALAZINE No 1{table TID hydrALAZIN HCl 10 MG HCl 10 MG t_with_ E HCl 10 food} MG Tamsulosin Tamsulosin No 1{capsu QD Tamsulosin HCl 0.4 MG HCl 0.4 MG le} HCl 0.4 MG Vitamin D3 Vitamin D3 No 1{capsu QD Vitamin D3 50 MCG 50 MCG le} 50 MCG (1999) (1999) (1999) Oxybutynin Oxybutynin No 1{table BID Oxybutynin Chloride 5 Chloride 5 t} Chloride 5 MG MG MG Omeprazole Omeprazole No BID Omeprazole 20 MG 20 MG 20 MG QUEtiapine QUEtiapine No QD QUEtiapine Fumarate Fumarate Fumarate 100 MG 100 MG 100 MG Atorvastati Atorvastati No QD Atorvastat n Calcium n Calcium in Calcium 40 MG 40 MG 40 MG Vitamin D3 Vitamin D3 No 1{capsu QD Vitamin D3 50 MCG 50 MCG le} 50 MCG (1999) (1999) (1999) Ambien 10 Ambien 10 No 1{table QD Ambien 10 MG MG t_at_be MG dtime_a s_neede d} Keppra XR Keppra XR No 1{table BID Keppra XR 750 MG 750 MG t} 750 MG Atorvastati Atorvastati No QD Atorvastat n Calcium n Calcium in Calcium 40 MG 40 MG 40 MG metFORMIN metFORMIN No 1{table BID metFORMIN HCl 850 MG HCl 850 MG t_with_ HCl 850 MG a_meal} Ambien 5 MG Ambien 5 MG Yes TAKE 1 UT Oral Tablet Oral Tablet TABLET AT [facility] BEDTIME ans NEEDED FOR SLEEP. QUEtiapine QUEtiapine No QD QUEtiapine Fumarate Fumarate Fumarate 100 MG 100 MG 100 MG Oxybutynin Oxybutynin No 1{table BID Oxybutynin Chloride 5 Chloride 5 t} Chloride 5 MG MG MG hydrALAZINE hydrALAZINE No 1{table TID hydrALAZIN HCl 10 MG HCl 10 MG t_with_ E HCl 10 food} MG Tamsulosin Tamsulosin No 1{capsu QD Tamsulosin HCl 0.4 MG HCl 0.4 MG le} HCl 0.4 MG Plavix 75 Plavix 75 No 1{table QD Plavix 75 MG MG t} MG amLODIPine amLODIPine No 1{table QD amLODIPine Besylate 10 Besylate 10 t} Besylate MG MG 10 MG Omeprazole Omeprazole No BID Omeprazole 20 MG 20 MG 20 MG Oxybutynin Oxybutynin No 1{table BID Oxybutynin Chloride 5 Chloride 5 t} Chloride 5 MG MG MG amLODIPine amLODIPine No 1{table QD amLODIPine Besylate 10 Besylate 10 t} Besylate MG MG 10 MG Atorvastati Atorvastati No QD Atorvastat n Calcium n Calcium in Calcium 40 MG 40 MG 40 MG Vitamin D3 Vitamin D3 No 1{capsu QD Vitamin D3 50 MCG 50 MCG le} 50 MCG (1999) (1999) (1999) Plavix 75 Plavix 75 No 1{table QD Plavix 75 MG MG t} MG Tamsulosin Tamsulosin No 1{capsu QD Tamsulosin HCl 0.4 MG HCl 0.4 MG le} HCl 0.4 MG Ambien 10 Ambien 10 No 1{table QD Ambien 10 MG MG t_at_be MG dtime_a s_neede d} metFORMIN metFORMIN No 1{table BID metFORMIN HCl 850 MG HCl 850 MG t_with_ HCl 850 MG a_meal} Keppra XR Keppra XR No 1{table BID Keppra XR 750 MG 750 MG t} 750 MG Immunizations Ordered Immunization Filled Immunization Date Status Commen ts Source Name Name Flucelvax - Flucelvax - 2021-04-28 Completed [facility] multidose vial 10:50:00 [facility] Flucelvax - Flucelvax - 2021-04-28 Completed [facility] multidose [facility] multidose vial 10:50:00 [facility] Flucelvax - Flucelvax - 2021-04-28 Completed [facility] multidose [facility]ial multidose vial 10:50:00 [facility] pneumococcal 2015-09-29 Completed [facility] 23-valent vaccine 20:50:00 [place] Vital Signs Vital Name Observation Time Observation Value Comments Source Systolic blood 2022-04-11 135 mm[Hg] [facility] pressure 18:06:00 Diastolic blood 2022-04-11 82 mm[Hg] [facility] pressure 18:06:00 Heart rate 2022-04-11 81 /min [facility] 18:06:00 Respiratory rate 2022-04-11 18 /min [facility] 18:06:00 Body height 2022-04-11 172.7 cm [facility] 18:06:00 Body weight 2022-04-11 92.987 kg [facility] 18:06:00 BMI 2022-04-11 31.17 kg/m2 [facility] 18:06:00 height 2022-01-04 68 [in_i] [facility] - 10:00:00 [facility] weight 2022-01-04 209.6 [lb_av] [facility] - 10:00:00 [facility] temperature 2022-01-04 98.0 [degF] [facility] - 10:00:00 [facility] bmi 2022-01-04 31.87 kg/m2 [facility] - 10:00:00 [facility] oximetry 2022-01-04 99 % [facility] - 10:00:00 [facility] respiratory rate 2022-01-04 16 /min [facility] - 10:[facility]:00 [facility] blood pressure 2022-01-04 122 mm[Hg] [facility] - systolic 10:00:00 [facility] blood pressure 2022-01-04 70 mm[Hg] [facility] - diastolic 10:00:00 [facility] height 2021-12-11 68 [in_i] [facility] - 09:40:00 [facility] weight 2021-12-11 216.8 [lb_av] [facility] - 09:40:00 [facility] temperature 2021-12-11 98.5 [degF] [facility] - 09:40:00 [facility] bmi 2021-12-11 32.96 kg/m2 [facility] - 09:40:00 [facility] oximetry 2021-12-11 99 % [facility] - 09:40:00 [facility] respiratory rate 2021-12-11 16 /min [facility] - 09:40:00 [facility] blood pressure 2021-12-11 130 mm[Hg] [facility] - systolic 09:40:00 [facility] blood pressure 2021-12-11 78 mm[Hg] [facility] - diastolic 09:40:00 [facility] height 2021-10-06 68 [in_i] [facility] - 15:40:00 [facility] weight 2021-10-06 218.8 [lb_av] [facility] - 15:40:00 [facility] temperature 2021-10-06 97.8 [degF] [facility] - 15:40:00 [facility] bmi 2021-10-06 33.26 kg/m2 [facility] - 15:40:00 [facility] oximetry 2021-10-06 98 % [facility] - 15:40:00 [facility] respiratory rate 2021-10-06 18 /min [facility] - 15:40:00 [facility] blood pressure 2021-10-06 132 mm[Hg] [facility] - systolic 15:40:00 [facility] blood pressure 2021-10-06 76 mm[Hg] [facility] - diastolic 15:40:00 [facility] Systolic blood 2020-06-09 148 mm[Hg] [facility]; [facility] pressure 14:23:00 Diastolic blood 2020-06-09 95 mm[Hg] [facility] pressure 14:23:00 Heart Rate 2020-06-09 91 /min [facility] 14:23:00 Body height 2020-06-09 68 [in_us] [facility] 14:19:00 Weight 2020-06-09 233 [lb_av] [facility] 14:19:00 Body mass index 2020-06-09 35.43 kg/m2 [facility] (BMI) [Ratio] 14:19:00 Body temperature 2020-06-09 98.3 [degF] Method: [facility] 14:19:00 Temporal Respiratory rate 2020-06-09 18 /min Quality: Normal [facility] 14:19:00 O2 SAT 2020-06-09 98 % Source: [facility] 14:19:00 Systolic blood 2020-06-09 140 mm[Hg] Location: [facility] pressure 14:19:00 Position: Sitting Diastolic blood 2020-06-09 90 mm[Hg] [facility] pressure 14:19:00 Position: Sitting Heart Rate 2020-06-09 90 /min [facility] 14:19:00 Systolic blood 2019-07-13 148 mm[Hg] [facility]: [facility] pressure 11:49:00 Position: Sitting Diastolic blood 2019-07-13 97 mm[Hg] [facility] pressure 11:49:00 Position: Sitting Body height 2019-07-13 68 [in_us] [facility] 11:49:00 Weight 2019-07-13 233.9 [lb_av] [facility] 11:49:00 Body mass index 2019-07-13 35.56 kg/m2 [facility] (BMI) [Ratio] 11:49:00 Heart Rate 2019-07-13 68 /min [facility] 11:49:00 BP Systolic 2019-03-10 139 mm[Hg] [facility] 11:34:00 BP Diastolic 2019-03-10 100 mm[Hg] [facility] 11:34:00 Height 2019-03-10 68 [in_us] [facility] 11:34:00 Weight 2019-03-10 236.25 [lb_av] [facility] 11:34:00 Body Mass Index 2019-03-10 35.92 kg/m2 [facility] Calculated 11:34:00 Heart Rate 2019-03-10 77 /min [facility] 11:34:00 BP Systolic 2018-12-05 142 mm[Hg] Location: [facility]; [facility] 11:51:00 Position: Sitting BP Diastolic 2018-12-05 87 mm[Hg] Location: [facility]; [facility] 11:51:00 Position: Sitting Height 2018-12-05 68 [in_us] [facility] 11:51:00 Weight 2018-12-05 252 [lb_av] [facility] 11:51:00 Body Mass Index 2018-12-05 38.32 kg/m2 [facility] Calculated 11:51:00 Heart Rate 2018-12-05 77 /min [facility] 11:51:00 BP Systolic 2018-09-04 134 mm[Hg] Location: [facility]; [facility] 16:20:00 Position: Sitting BP Diastolic 2018-09-04 92 mm[Hg] Location: [facility]; [facility] 16:20:00 Position: Sitting Height 2018-09-04 68 [in_us] [facility] 16:20:00 Weight 2018-09-04 248 [lb_av] [facility] 16:20:00 Body Mass Index 2018-09-04 37.71 kg/m2 [facility] Cal[facility] 16:20:00 Heart Rate 2018-09-04 75 /min [facility] 16:20:00 Respitory Rate 2018-08-01 [facility] 14:00:00 Systolic (mm Hg) 2018-08-01 [facility] 14:00:00 Diastolic (mm Hg) 2018-08-01 [facility] 14:00:00 Systolic (mm Hg) 2018-08-01 [facility] 13:45:00 Diastolic (mm Hg) 2018-08-01 [facility] 13:45:00 Respitory Rate 2018-08-01 [facility] 13:45:00 Respitory Rate 2018-08-01 [facility] 13:30:00 Systolic (mm Hg) 2018-08-01 [facility] Fidel r[facility] 13:30:00 Diastolic (mm Hg) 2018-08-01 [facility] Steffanie ermann 13:30:00 Weight 2018-08-01 [facility] Pined[facility] n 11:57:00 Height 2018-08-01 172.72 cm [facility] Pinedaan n 11:57:00 BMI Calculated 2018-08-01 [facility] 11:57:00 Heart Rate 2018-08-01 [facility] Maicol n 11:57:00 Weight 2018-07-23 [facility] Maicol n 16:47:00 BMI Calculated 2018-07-23 [facility] 16:47:00 Height 2018-07-23 172.72 cm [facility] Maicol n 16:47:00 BP Systolic 2018-06-05 144 mm[Hg] Location: [facility]; [facility] 14:56:00 Position: Sitting BP Diastolic 2018-06-05 97 mm[Hg] Location: [facility]; [facility] 14:56:00 Position: Sitting Height 2018-06-05 67 [in_us] [facility] 14:56:00 Weight 2018-06-05 231 [lb_av] [facility] 14:56:00 Body Mass Index 2018-06-05 36.18 kg/m2 [facility] 14:56:00 Temperature 2018-06-05 98.6 [degF] Method: [facility] 14:56:00 Temporal Heart Rate 2018-06-05 77 /min [facility] 14:56:00 BP Systolic 2018-05-30 128 mm[Hg] [facility] 10:30:00 BP Diastolic 2018-05-30 83 mm[Hg] [facility] 10:30:00 Height 2018-05-30 67 [in_us] [facility] 10:30:00 Weight 2018-05-30 245 [lb_av] [facility] 10:30:00 Body Mass Index 2018-05-30 38.37 kg/m2 [facility] Calculated 10:30:00 Heart Rate 2018-05-30 66 /min [facility] 10:30:00 BP Systolic 2018-02-27 152 mm[Hg] [facility] 16:04:00 BP Diastolic 2018-02-27 107 mm[Hg] [facility] 16:04:00 Height 2018-02-27 67 [in_us] [facility] 16:04:00 Weight 2018-02-27 233 [lb_av] [facility] 16:04:00 Body Mass Index 2018-02-27 36.49 kg/m2 [facility] Cal[facility] 16:04:00 Heart Rate 2018-02-27 80 /min [facility] 16:04:00 Systolic (mm Hg) 2018-02-09 [facility] 13:20:00 Diastolic (mm Hg) 2018-02-09 [facility] 13:20:00 Respitory Rate 2018-02-09 [facility] 13:20:00 Temperature Oral 2018-02-09 97 F [facility] (F) 13:20:00 Heart Rate 2018-02-09 [facility] n 13:20:00 Systolic (mm Hg) 2018-02-09 [facility] 00:23:00 Diastolic (mm Hg) 2018-02-09 [facility] 00:23:00 Heart Rate 2018-02-09 [facility] Maicol n 00:23:00 Temperature Oral 2018-02-09 97.7 F [facility] (F) 00:23:00 Respitory Rate 2018-02-09 [facility] 00:23:00 Height 2018-02-08 170.18 cm [facility] n 17:39:00 Weight 2018-02-08 [facility] 17:39:00 BMI Calculated 2018-02-08 [facility] 17:39:00 Respitory Rate 2018-02-08 [facility] 15:45:00 Heart Rate 2018-02-08 [facility] n 15:45:00 Systolic (mm Hg) 2018-02-08 [facility] 15:45:00 Diastolic (mm Hg) 2018-02-08 [facility] 15:45:00 Temperature Oral 2018-02-08 97.5 F [facility] (F) 15:45:00 BP Systolic 2018-02-07 151 mm[Hg] Location: RUE; [facility] 11:47:00 Position: Sitting BP Diastolic 2018-02-07 101 mm[Hg] Location: RUE; [facility] 11:47:00 Position: Sitting Height 2018-02-07 67 [in_us] [facility] 11:47:00 Weight 2018-02-07 239 [lb_av] [facility] 11:47:00 Body Mass Index 2018-02-07 37.43 kg/m2 [facility] 11:47:00 Heart Rate 2018-02-07 80 /min Location: R [facility] 11:47:00 Brachial Artery; BP Systolic 2018-01-23 131 mm[Hg] Location: LUE; [facility] 14:52:00 Position: Sitting BP Diastolic 2018-01-23 88 mm[Hg] Location: LUE; [facility] 14:52:00 Position: Sitting Height 2018-01-23 67 [in_us] [facility] 14:52:00 Weight 2018-01-23 227 [lb_av] [facility] 14:52:00 Body Mass Index 2018-01-23 35.55 kg/m2 [facility] 14:52:00 Heart Rate 2018-01-23 68 /min Location: L [facility] 14:52:00 Brachial Artery; Temperature 2018-01-23 97.5 [degF] Method: [facility] 14:52:00 Temporal BP Systolic 2017-11-12 118 mm[Hg] [facility] 11:20:00 BP Diastolic 2017-11-12 70 mm[Hg] [facility] 11:20:00 Height 2017-11-12 67 [in_us] [facility] 11:20:00 Weight 2017-11-12 224 [lb_av] [facility] 11:20:00 Body Mass Index 2017-11-12 35.08 kg/m2 [facility] Calculated 11:20:00 Heart Rate 2017-11-12 72 /min [facility] 11:20:00 BP Systolic 2017-08-09 120 mm[Hg] Location: RUE; [facility] 11:52:00 Position: Sitting BP Diastolic 2017-08-09 82 mm[Hg] Location: RUE; [facility] 11:52:00 Position: Sitting Height 2017-08-09 67 [in_us] [facility] 11:52:00 Weight 2017-08-09 221 [lb_av] [facility] 11:52:00 Body Mass Index 2017-08-09 34.61 kg/m2 [facility] Calculated 11:52:00 Heart Rate 2017-08-09 55 /min Location: R [facility] 11:52:00 Brachial Artery; Systolic (mm Hg) 2015-12-23 [facility] 17:00:00 Diastolic (mm Hg) 2015-12-23 [facility] 17:00:00 Respitory Rate 2015-12-23 [facility] 17:00:00 Systolic (mm Hg) 2015-12-23 [facility] 16:00:00 Diastolic (mm Hg) 2015-12-23 [facility] 16:00:00 Respitory Rate 2015-12-23 [facility] 16:00:00 Temperature Oral 2015-12-23 96.8 F [facility] (F) 15:36:00 Systolic (mm Hg) 2015-12-23 [facility] 15:00:00 Diastolic (mm Hg) 2015-12-23 [facility] 15:00:00 Respitory Rate 2015-12-23 [facility] 15:00:00 Temperature Oral 2015-12-23 96.8 F [facility] (F) 12:21:00 Temperature Oral 2015-12-23 96.6 F [facility] (F) 08:05:00 Heart Rate 2015-12-23 [facility] 06:45:00 Heart Rate 2015-12-23 [facility] 06:30:00 BMI Calculated 2015-12-23 [facility] 05:34:00 Height 2015-12-23 170.18 cm [facility] 05:34:00 Weight 2015-12-23 [facility] 05:34:00 Heart Rate 2015-12-23 [facility] 04:15:00 Height 2015-12-22 182.88 cm [facility] 15:15:00 Weight 2015-12-22 [facility] 15:15:00 BMI Calculated 2015-12-22 [facility] 15:15:00 Respitory Rate 2015-10-18 [facility] 12:41:00 Systolic (mm Hg) 2015-10-18 [facility] 12:41:00 Diastolic (mm Hg) 2015-10-18 [facility] 12:41:00 Temperature Oral 2015-10-18 97.9 F [facility] (F) 12:41:00 Heart Rate 2015-10-18 [facility] 12:41:00 Temperature Oral 2015-10-18 97.3 F [facility] (F) 08:48:00 Heart Rate 2015-10-18 [facility] 08:48:00 Systolic (mm Hg) 2015-10-18 [facility] 08:48:00 Diastolic (mm Hg) 2015-10-18 [facility] 08:48:00 Respitory Rate 2015-10-18 [facility] 08:48:00 Temperature Oral 2015-10-18 97.8 F [facility] (F) 04:29:00 Heart Rate 2015-10-18 [facility] 04:29:00 Respitory Rate 2015-10-18 [facility] 04:29:00 Systolic (mm Hg) 2015-10-18 [facility] 04:29:00 Diastolic (mm Hg) 2015-10-18 [facility] 04:29:00 BMI Calculated 2015-10-14 [facility] 10:15:00 Weight 2015-10-14 [facility] 10:15:00 Height 2015-10-14 172.72 cm [facility] 10:15:00 BMI Calculated 2015-10-14 [facility] 03:14:00 Weight 2015-10-14 [facility] 03:14:00 Height 2015-10-14 172.72 cm [facility] 03:14:00 Systolic (mm Hg) 2015-10-03 [facility] 16:20:00 Diastolic (mm Hg) 2015-10-03 [facility] 16:20:00 Temperature Oral 2015-10-03 97.8 F [facility] (F) 16:20:00 Heart Rate 2015-10-03 [facility] 16:20:00 Respitory Rate 2015-10-03 [facility] 16:20:00 Heart Rate 2015-10-03 [facility] 13:35:00 Temperature Oral 2015-10-03 98.2 F [facility] (F) 13:35:00 Respitory Rate 2015-10-03 [facility] 13:35:00 Systolic (mm Hg) 2015-10-03 [facility] 13:35:00 Diastolic (mm Hg) 2015-10-03 [facility] 13:35:00 Systolic (mm Hg) 2015-10-03 [facility] 08:32:00 Diastolic (mm Hg) 2015-10-03 [facility] 08:32:00 Heart Rate 2015-10-03 [facility] 08:32:00 Respitory Rate 2015-10-03 [facility] 08:32:00 Temperature Oral 2015-10-03 98 F [facility] (F) 00:46:00 Height 2015-09-27 175.26 cm [facility] 19:06:00 Weight 2015-09-27 [facility] 19:06:00 BMI Calculated 2015-09-27 [facility] 19:06:00 Weight 2015-09-27 [facility] 12:52:00 BMI Calculated 2015-09-27 [facility] 12:52:00 Height 2015-09-27 177.8 cm [facility] 12:52:00 Procedures Procedure Date / Time Performed Performing Clinician Sourc e [UTP] Neuro EMU 2019-07-14 00:00:00 [facility] Brain wo contrast 2019-07-13 00:00:00 [facility] [id number] [[facility]] Neuro EMU 2019-03-10 00:00:00 [facility] Brain wo contrast 2019-03-10 00:00:00 [facility] [id number] MRI Brain wo contrast 2018-05-30 00:00:00 [facility] [id number] [[facility]] Neuro EMU 2017-11-27 00:00:00 [facility] EEG Awake and Asleep 2017-11-12 00:00:00 [facility] 23hr EEG/Video 2017-11-12 00:00:00 [facility] Selective catheter 2015-09-27 18:58:00 [facility] placement, external carotid artery, unilateral, with angiography of the ipsilateral external carotid circulation and all associated radiological supervision and interpretation (List separately in addition to code for primary procedure) Selective catheter 2015-09-27 18:58:00 [facility] [place] placement, common carotid or innominate artery, unilateral, any approach, with angiography of the ipsilateral extracranial carotid circulation and all associated radiological supervision and interpretation, includes angiography of the c Selective catheter 2015-09-27 18:58:00 [facility] placement, internal carotid artery, unilateral, with angiography of the ipsilateral intracranial carotid circulation and all associated radiological supervision and interpretation, includes angiography of the extracranial carotid and ce Appendectomy [facility] LASIK [facility] procedure<sup>1</sup> Karisori al Carl Occipital incision [facility]end[facility] History of Corneal L[facility]IK [facility] Plan of Care Planned Activity Planned Date Details Comments Source Diagnostic Test Pending 2019-07-14 00:00:00 [[facility]] [facility] [code = [UTP] Neuro EMU] Diagnostic Test Pending 2019-07-14 00:00:00 [UTP] [facility] [code = [UTP] Neuro EMU] Diagnostic Test Pending 2019-03-10 00:00:00 [UTP] [facility] [code = [UTP] Neuro EMU] Diagnostic Test Pending 2017-11-27 00:00:00 [UTP] [facility] [code = [UTP] Neuro EMU] Encounters Start End Encounter Admission Attending Care Care Encounter Source Date/Time Date/Time Type Type Clinicians Facility Department ID 2022-04-[address] [facility] [id number] [place] 12:01:22 [id number] [facility] 2022-04-[address] [facility] [id number] [place] 07:32:27 [id number] [facility] 2022-04-[address] [facility] [id number] [place] 12:56:42 [id number] [facility] 2022-03-[address] [facility] [id number] [place] 15:35:52 [id number] [facility] 2022-03-12 Outpatient Bean, STLMLC [facility] [id number] Common 16:12:03 [facility] 2022-03-08 Outpatient Bean, STLMLC [facility] [id number] Common 09:58:02 [facility] 2022-03-06 Outpatient Bean, STLMLC [facility] [id number] Common 13:01:00 [facility] 2022-03-05 Outpatient Bean, STLMLC [facility] [id number] Common 14:09:02 [facility] 2022-02-20 Outpatient Bean, STLMLC STLMLC [id number] Common 12:47:02 [facility] 2022-02-08 Outpatient Bean, STLMLC STLMLC [id number] Common 14:59:02 [facility] 2022-01-31 Outpatient Bean, STLMLC STLMLC [id number] Common 09:07:02 [facility] 2022-01-15 Outpatient Bean, STLMLC STLMLC [id number] Common 14:42:02 [facility] 2021-12-28 Outpatient Bean, STLMLC STLMLC [id number] Common 13:36:03 Sen[facility] 2021-12-[address] [facility] [id number] [place] 08:41:48 [id number] [facility] 2021-12-11 Outpatient Bean, STROSALINALC STLMLC [id number] Common 15:18:01 [facility] 2021-10-04 Outpatient Bean, STROSALINALC STLMLC [id number] Common 12:57:02 [facility] 2022-04-11 2022-04-11 Office Kristy, [facility] [id number] [place] 12:00:00 13:01:14 Visit Sharonda KRISHNAMURTHY [id number] [facility] [id number] 2022-01-04 2022-01-04 OFFICE STLMLC STLMLC [id number] Co mmon 00:00:00 00:00:00 VISIT EST Spir it PT LEVEL 3 [facility] 2021-12-11 2021-12-11 OFFICE STLMLC STLMLC [id number] Co mmon 00:00:00 00:00:00 VISIT EST Spir it PT LEVEL 3 [facility] 2021-10-06 2021-10-06 OFFICE STLMLC STLMLC [id number] Co mmon 00:00:00 00:00:00 VISIT NEW Spir it PT LEVEL 3 - [facility] 2021-07-03 2021-07-03 Telephone Unknown, Physician KELSEY [id number] [place] 00:00:00 00:00:00 Unknown, Physician YESSY LOCKE [id number] Health [id number] 2021-05-17 2021-05-17 KELSEY Mcfarlane Neurology - [id number] [place] 16:00:00 16:00:00 t[facility], FORK LIFT TECHNICIAN Medical ans FORK LIFT TECHNICIAN Center 2020-06-09 2020-06-09 KELSEY Mcfarlane Neurology - [id number] [place] 15:00:00 15:00:00 t; [facility], FORK LIFT TECHNICIAN Medical ans FORK LIFT TECHNICIAN Center 2019-08-05 2019-08-05 KELSEY Mcfarlane Neurology - [id number] [place] 13:00:00 13:00:00 t; [facility], [facility] Medical ans FORK LIFT TECHNICIAN Center 2019-07-13 2019-07-13 KELSEY Nichols Neurology - [id number] [place] 11:30:00 11:30:00 t; Flor FELIX M.D. Medical Russ Simpson M.D. 2019-06-26 2019-06-26 KELSEY Nichols [facility] [id number] [place] 10:30:00 10:30:00 t; Bruna FELIX M.D. ans STEPHEN, M.D. 2019-03-10 2019-03-10 KELSEY Nichols Neurology - [id number] [place] 11:30:00 11:30:00 t; Flor FLEIX M.D. Medical ans Russ FELIX M.D. 2018-12-05 2018-12-05 KELSEY Mcfarlane Neurology - [id number] [place] 11:30:00 11:30:00 t; [facility] 2018-09-04 2018-09-04 Kelly RAMIREZ [facility] Neurology [id number] [place] 16:00:00 16:00:00 t; Bruna FELIX M.D. ans STEPHEN, M.D. 2018-08-29 2018-08-29 [facility] [id number] [place] 11:00:00 11:00:00 t; SHARONDA WAGNER, [facility] [place] [facility] 2018-08-01 2018-08-02 Day nullFlavo [facility] [id number] Memoria 11:07:00 04:59:00 Surgery r [place] 02 [facility] 2018-08-01 2018-08-01 Outpatient David Vogt [facility] [id number] 06:07:00 23:59:00 02 2018-08-01 2018-08-01 [id number] [place] 07:30:00 07:30:00 t; Christina [facility]GT [facility] 2018-06-05 2018-06-05 [facility] [id number] [place] 14:45:00 14:45:00 t; Christina VOGT Associates [facility] [place] PATEL M.D. [facility] 2018-05-30 2018-05-30 Kelly RAMIREZ [facility] Neurology [id number] [place] 10:30:00 10:30:00 t; Bruna FELIX M.D. ans STEPHEN, M.D. 2018-02-28 2018-02-28 Kelly RAMIREZ [facility] [id number] [place] 11:00:00 11:00:00 t; Bruna FELIX M.D. ans STEPHEN, M.D. 2018-02-27 2018-02-27 Kelly RAMIREZ [facility] Neurology [id number] [place] 15:00:00 15:00:00 t; Bruna FELIX M.D. ans STEPHEN, M.D. 2018-02-08 2018-02-09 [facility] [id number] Memoria 15:40:00 14:55:00 Outpatient r [place] [facility] 2018-02-08 2018-02-09 Outpatient James [facility] [id number] 10:40:00 09:55:00 Sarkis 01 [place] 2018-02-07 2018-02-07 Appointmen KRISTY, [facility] Neurology [id number] [place] 11:30:00 11:30:00 t; SHARONDA WAGNER, [place] HEARN, FORK LIFT TECHNICIAN ans FORK LIFT TECHNICIAN 2018-01-23 2018-01-23 Appointmen DAVID VOGT, [facility] Urologic [id number] [place] 14:30:00 14:30:00 t; Christina VOGT [facility] [place] PATEL M.D. ans 2017-11-15 2017-11-15 Outpatient MHIE MHIE [id number] Memoria 11:00:00 11:00:00 53 l Carl 2017-11-12 2017-11-12 Kelly RAMIREZ [facility] Neurology [id number] [place] 11:00:00 11:00:00 t; SARKIS Physi Christina Shelton M.D. 2017-10-11 2017-10-11 Kelly RAMIREZ [facility] UTP [id number] [place] 11:00:00 11:00:00 t; SARKIS Physi antony RAMIREZ M.D. ans Christina FELIX 2017-08-22 2017-08-22 [facility], [facility] UTP [id number] [place] 14:15:00 14:15:00 t; Christina VOGT Physi antony PATEL M.D. ans 2017-08-09 2017-08-09 Appointradha WAGNER [facility] Neurology [id number] [place] 11:30:00 11:30:00 t; SHARONDA WAGNER, [place] HEARN, FORK LIFT TECHNICIAN ans FORK LIFT TECHNICIAN 2017-07-05 2017-07-05 Appointmen KRISTY, [facility] UTP [id number] [place] 10:00:00 10:00:00 t; SHARONDA WAGNER, Ph corinaici SHARONDA, FORK LIFT TECHNICIAN ans FORK LIFT TECHNICIAN 2017-05-17 2017-05-18 Outpt Diag nullFlavo [facility] [id number] Memoria 20:41:00 05:59:00 Services r Outpatient 00 l Imaging Carl [place] 2017-05-17 2017-05-17 Outpatient SYBIL Wagner MHOIP [id number] 14:41:00 23:59:00 [place] 00 Nkiru 2017-05-10 2017-05-10 Appointmen KRISTY, UTP UTP [id number] [place] 11:30:00 11:30:00 t; OKKAREYA MUNACHI, HYPERION DEVELOPER Physici MUNACHI, ans HYPERION DEVELOPER 2017-04-12 2017-04-12 Appointmen RAMIREZ, UTP UTP [id number] [place] 11:00:00 11:00:00 t; SARKIS Physi antony RAMIREZ M.D. ans Christina FELIX 2016-12-20 2016-12-20 Appointmen DAVID VOGT, UTP UTP [id number] [place] 14:00:00 14:00:00 t; Christina VOGT Physi antony PATEL M.D. ans 2016-10-12 2016-10-12 [facility] UTP [facility]TP [id number] [place] 08:30:00 08:30:00 t; SARKIS Physi antony RAMIREZ M.D. ans Christina FELIX 2016-10-04 2016-10-04 Appointmen DAVID VOGT, [facility] UTP [id number] [place] 14:45:00 14:45:00 t; Christina VOGT Physi antony PATEL M.D. ans 2016-09-07 2016-09-07 Appointmen KRISTY, UTP UTP [id number] [place] 10:00:00 10:00:00 t; BRIGHTKAREYA MUNACHI, HYPERION DEVELOPER Physici MUNACHI, ans HYPERION DEVELOPER 2016-07-20 2016-07-20 Appointmen KRISTY, UTP UTP [id number] [place] 10:00:00 10:00:00 t; OKPALA MUNACHI, HYPERION DEVELOPER Physici MUNACHI, ans HYPERION DEVELOPER 2016-05-29 2016-05-29 Appointmen ABEA, UTP UTP [id number] [place] 15:30:00 15:30:00 t; OKPALA, MUNACHI, HYPERION DEVELOPER Physici MUNACHI, ans HYPERION DEVELOPER 2016-02-29 2016-02-29 Appointmen ABEA, UTP UTP [id number] [place] 13:00:00 13:00:00 t; OKPALA, MUNACHI, HYPERION DEVELOPER Physici MUNACHI, ans HYPERION DEVELOPER 2016-02-17 2016-02-18 Outpt Diag nullFlavo [facility] [id number] Memoria 19:19:00 04:59:00 Services r Jennifer Henry 2016-02-17 2016-02-17 [facility] [id number] 14:19:00 23:59:00 [place] 00 Nkiru 2016-01-23 2016-01-23 Appointradha RAMIREZ, [facility] UTP [id number] [place] 11:00:00 11:00:00 t; Bruna FELIX M.D. ans STEPHEN, M.D. 2016-01-20 2016-01-20 [facility] BRIGHTKAREYJazzmine, [facility] UTP [id number] [place] 10:00:00 10:00:00 t; BRIGHTSHARONDA DEMARCO, HYPERION DEVELOPER Physici MUNACHI, ans HYPERION DEVELOPER 2015-12-22 2015-12-23 Observatio nullFlavo [facility] [id number] Memoria 15:13:00 22:31:00 n r Carl 00 l [facility] 2015-12-22 2015-12-23 Outpatient Grecia [facility] [id number] 10:13:00 17:31:00 Amrou 00 2015-12-22 2015-12-22 [facility] BRIGHTKAREYJazzmine, [facility] UTP [id number] [place] 09:00:00 09:00:00 t; SHARONDA WAGNER, HYPERION DEVELOPER Physici MUNACHI, ans HYPERION DEVELOPER 2015-11-30 2015-11-30 [facility] KRISTEL, [facility] UTP [id number] [place] 15:00:00 15:00:00 t; Bruna CHOI M.D. ans RICHARD, M.D. 2015-11-30 2015-11-30 [facility] KRISTY, [facility] UTP [id number] [place] 13:00:00 13:00:00 t; BRIGHTNILAM SANDYARIC, HYPERION DEVELOPER Physici MUNACHI, ans HYPERION DEVELOPER 2015-10-14 2015-10-18 Inpatient nullFlavo [facility] [id number] Memoria 03:14:00 15:50:00 r Carl 67 l [facility] 2015-10-13 2015-10-18 Outpatient Sheila [facility] [id number] 22:14:00 10:50:00 Kevin Cunha 67 2015-09-27 2015-10-03 Inpatient nullFlavo [facility] [id number] Memoria 12:52:00 19:27:00 r Carl 52 l [facility] 2015-09-27 2015-10-03 Outpatient Dario, [facility] [id number] 07:52:00 14:27:00 Luz 52 Suzanne Results Test Description Test Time Test Comments Results Result Comments Source CHEM PANEL 2018-08-01 11:53:00 Test Item Value Reference Range Interpretation Comme nts eGFR (test code = eGFR) 83 [facility] [id number] 11:53:00 Test Item Value Reference Range Interpretation Comments Creatinine Lvl (test code = Creatinine 1.09 0.50-1.40 Lvl) [facility] [id number] 11:53:00 Test Item Value Reference Range Interpretation Comments Sodium Lvl (test code = Sodium Lvl) 142 135-145 [facility] [id number] 11:53:00 Test Item Value Reference Range Interpretation Comments Potassium Lvl (test code = Potassium 4.0 3.5-5.1 Lvl) [facility] [id number] 11:53:00 Test Item Value Reference Range Interpretation Comments Chloride Lvl (test code = Chloride Lvl) 110 95-109 [facility] [id number] 11:53:00 Test Item Value Reference Range Interpretation Comments CO2 (test code = CO2) 25 24-32 [facility] [id number] 11:53:00 Test Item Value Reference Range Interpretation Comments Calcium Lvl (test code = Calcium Lvl) 8.5 8.5-10.5 [facility] [id number] 11:53:00 Test Item Value Reference Range Interpretation Comments BUN (test code = BUN) 17 7-22 [facility] [id number] 11:53:00 Test Item Value Reference Range Interpretation Comments AGAP (test code = AGAP) 11.0 10.0-20.0 [facility] [id number] 11:53:00 Test Item Value Reference Range Interpretation Comments Glucose Lvl (test code = Glucose Lvl) 225 70-99 [facility] [id number] 04:30:00 Test Item Value Reference Range Interpretation Comments UDS Note (test code = See Note *NA*(12/22/15 UDS Note) 11:30 PM) [facility] [id number] 04:30:00 Test Item Value Reference Range Interpretation Comments U Phencyc Scr (test Negative *NA*(12/22/15 code = U Phencyc Scr) 11:30 PM) [facility] [id number] 04:30:00 Test Item Value Reference Range Interpretation Comments U Cocaine Scr (test Negative *NA*(12/22/15 code = U Cocaine Scr) 11:30 PM) [facility] [id number] 04:30:00 Test Item Value Reference Range Interpretation Comments U Benzodia Scr (test Negative *NA*(12/22/15 code = U Benzodia Scr) 11:30 PM) [facility] [id number] 04:30:00 Test Item Value Reference Range Interpretation Comments U Carmelina Scr (test code Negative *NA*(12/22/15 = U Carmelina Scr) 11:30 PM) [facility] [id number] 04:30:00 Test Item Value Reference Range Interpretation Comments U Amph Scr (test code Negative *NA*(12/22/15 = U Amph Scr) 11:30 PM) [facility] [id number] 04:30:00 Test Item Value Reference Range Interpretation Comments U Opiate Scr (test Negative *NA*(12/22/15 code = U Opiate Scr) 11:30 PM) [facility] [id number] 04:30:00 Test Item Value Reference Range Interpretation Comments U Cannab Scr (test Negative *NA*(12/22/15 code = U Cannab Scr) 11:30 PM) [facility] [id number] 04:30:00 Test Item Value Reference Range Interpretation Comments UA WBC (test code = UA None Seen (12/22/15 WBC) 11:30 PM) [facility] [id number] 04:30:00 Test Item Value Reference Range Interpretation Comments UA Sq Epi (test code = None Seen (12/22/15 UA Sq Epi) 11:30 PM) [facility] [id number] 04:30:00 Test Item Value Reference Range Interpretation Comments UA RBC (test None Seen See_Comment [Automated mes maurilio] code = UA RBC) (12/22/15 11:30 The system which PM) generated this result transmitted ref erence range: <=2. The reference range was not used to int erpret this result as normal/abnormal . [facility] [id number] 04:30:00 Test Item Value Reference Range Interpretation Comments UA Bacteria (test code = None Seen (12/22/15 UA Bacteria) 11:30 PM) [facility] AND [id number] 04:30:00 Test Item Value Reference Range Interpretation Comments UA Glucose (test code = UA Negative mg/dL Glucose) [facility] AND [id number] 04:30:00 Test Item Value Reference Range Interpretation Comments UA Ketones (test code = UA Negative mg/dL Ketones) [facility] AND [id number] 04:30:00 Test Item Value Reference Range Interpretation Comments UA Bili (test code = Negative *NA*(12/22/15 UA Bili) 11:30 PM) [facility] AND [id number] 04:30:00 Test Item Value Reference Range Interpretation Comments UA Urobilinogen (test code = UA 1.0 0.1-1.0 Urobilinogen) [facility] AND [id number] 04:30:00 Test Item Value Reference Range Interpretation Comments UA Blood (test code = Negative (12/22/15 11:30 UA Blood) PM) [facility] AND [id number] 04:30:00 Test Item Value Reference Range Interpretation Comments UA Leuk Est (test Negative (12/22/15 11:30 code = UA Leuk Est) PM) [facility] AND [id number] 04:30:00 Test Item Value Reference Range Interpretation Comments UA Nitrite (test code Negative (12/22/15 11:30 = UA Nitrite) PM) [facility] AND [id number] 04:30:00 Test Item Value Reference Range Interpretation Comments UA Spec Grav (test code = UA Spec 1.020 1 Grav) [facility] AND [id number] 04:30:00 Test Item Value Reference Range Interpretation Comments UA Turbidity (test code = Clear (12/22/15 11:30 UA Turbidity) PM) [facility] AND [id number] 04:30:00 Test Item Value Reference Range Interpretation Comments UA Protein (test code = UA Negative mg/dL Protein) [facility] AND [id number] 04:30:00 Test Item Value Reference Range Interpretation Comments UA pH (test code = UA pH) 6.0 1 5.0-8.0 [facility] AND [id number] 04:30:00 Test Item Value Reference Range Interpretation Comments UA Color (test code = Yellow *NA*(12/22/15 UA Color) 11:30 PM) [id number] 04:14:00 Test Item Value Reference Range Interpretation Comments CO2 (test code = CO2) - [id number] 04:14:00 Test Item Value Reference Range Interpretation Comments Calcium Lvl (test code = Calcium Lvl) 8.9 8.5-10.5 [id number] 04:14:00 Test Item Value Reference Range Interpretation Comments AGAP (test code = AGAP) 16.0 10.0-20.0 [id number] 04:14:00 Test Item Value Reference Range Interpretation Comments Chloride Lvl (test code = Chloride Lvl) 103 95-109 [facility]FjlgijwGVPSUPYHKGRX8363-80-40 04:14:00 Test Item Value Reference Range Interpretation Comments eGFR (test code = eGFR) 110 [facility]UfkswozNRVNGOWZZAOW5531-93-75 04:14:00 Test Item Value Reference Range Interpretation Comments Potassium Lvl (test code = Potassium 4.0 3.5-5.1 Lvl) [facility] HealthEfchazuZSACMOVARGNK5332-77-83 04:14:00 Test Item Value Reference Range Interpretation Comments Creatinine Lvl (test code = Creatinine 0.84 0.50-1.40 Lvl) [facility] HealthNnznqccBWDGHXIBQYAI9299-96-57 04:14:00 Test Item Value Reference Range Interpretation Comments Sodium Lvl (test code = Sodium Lvl) 141 135-145 [facility] HealthYtvdxthWXSWGVXQTVBE3345-18-26 04:14:00 Test Item Value Reference Range Interpretation Comments BUN (test code = BUN) 12 - [facility] HealthVkdeyihFVQLXHLCBTQM7326-38-46 04:14:00 Test Item Value Reference Range Interpretation Comments Glucose Lvl (test code = Glucose Lvl) 91 70-99 [facility]QubnixqILZNIJHUPR5182-40-28 04:14:00 Test Item Value Reference Range Interpretation Comments Segs-Bands # (test code = Segs-Bands #) 3.9 1.5-8.1 [facility]vineNnxceixOVRZYMJPNC4603-13-70 04:14:00 Test Item Value Reference Range Interpretation Comments Basophils (test code = 0.9 See_Comment [Aut omated message] The Basophils) system which ge nerated this result tra nsmitted reference range : <=1.0. The reference r francheska was not used to int erpret this result as normal/abnormal . [facility]rapevineAbmpydaNKKVAOEWQU3307-40-17 04:14:00 Test Item Value Reference Range Interpretation Comments Eosinophils (test code = 1.9 See_Comment [A utomated message] The Eosinophils) system which ge nerated this result tra nsmitted reference range : <=4.0. The reference r francheska was not used to int erpret this result as normal/abnormal . [facility]rapevineJwpymqxFNOEBSHOTA5326-52-90 04:14:00 Test Item Value Reference Range Interpretation Comments Eosinophils # (test code 0.1 See_Comment [A utomated message] The = Eosinophils #) system whic h generated this result tra nsmitted reference range : <=0.5. The reference r francheska was not used to int erpret this result as normal/abnormal . [facility]rapevineHwtcyhwNPLCNEXYRS3476-55-85 04:14:00 Test Item Value Reference Range Interpretation Comments Monocytes # (test code 0.6 See_Comment [Aut omated message] The = Monocytes #) system which generated this result tra nsmitted reference range : <=0.8. The reference r francheska was not used to int erpret this result as normal/abnormal . [facility] GrapevineHyibgasDLQSGLACDN4023-92-08 04:14:00 Test Item Value Reference Range Interpretation Comments Lymphocytes # (test code = Lymphocytes 2.1 1.0-5.5 #) [facility] GrapevineCylaqfoYDHIBEDJLK3817-19-74 04:14:00 Test Item Value Reference Range Interpretation Comments Basophils # (test code 0.1 See_Comment [Aut omated message] The = Basophils #) system which generated this result tra nsmitted reference range : <=0.2. The reference r francheska was not used to int erpret this result as normal/abnormal . [facility] GrapevineXeputmpTKNAIDQXMN9201-47-08 04:14:00 Test Item Value Reference Range Interpretation Comments Lymphocytes (test code = Lymphocytes) 31.1 20.0-40.0 [facility] GrapevineDihtopeYCPUGXYGGE4029-61-45 04:14:00 Test Item Value Reference Range Interpretation Comments Monocytes (test code = Monocytes) 8.6 2.0-12.0 [facility]rapevineEcnsdgfEKXZIQSNPZ3478-40-80 04:14:00 Test Item Value Reference Range Interpretation Comments Segs (test code = Segs) 57.5 45.0-75.0 [facility] GrapevineSygtefoAYJHLUYQEZ6126-01-94 04:14:00 Test Item Value Reference Range Interpretation Comments MPV (test code = MPV) 7.7 7.4-10.4 [facility]rapevineNxrdkypCOFAQIFTUP1875-77-93 04:14:00 Test Item Value Reference Range Interpretation Comments MCHC (test code = MCHC) 34.2 32.0-36.0 [place] 440456-08-26 04:14:00 Test Item Value Reference Range Interpretation Comments RDW (test code = RDW) 15.5 11.5-14.5 [facility]rapevineMvacgplQKJGCINXQE4859-10-56 04:14:00 Test Item Value Reference Range Interpretation Comments Platelet (test code = Platelet) 295 133-450 [facility] GrapevineNzlmiqsXXKYVXPFYV9801-70-62 04:14:00 Test Item Value Reference Range Interpretation Comments Hct (test code = Hct) 45.1 42.0-54.0 [facility] GrapevineAdneaphNHJCOHVKST2285-17-48 04:14:00 Test Item Value Reference Range Interpretation Comments RBC (test code = RBC) 5.61 4.70-6.10 [facility] GrapevineRbevwtePYGOLAFMQN8831-01-86 04:14:00 Test Item Value Reference Range Interpretation Comments Hgb (test code = Hgb) 15.4 14.0-18.0 [facility] GrapevineTiwaqivBMQCBAIBUT2383-10-20 04:14:00 Test Item Value Reference Range Interpretation Comments WBC (test code = WBC) 6.8 3.7-10.4 [facility]rapevineUpcjjqlDSXCOOTCLT9309-41-16 04:14:00 Test Item Value Reference Range Interpretation Comments MCV (test code = MCV) 80.4 80.0-94.0 [facility] GrapevineVzhfjazXFIGSWKGLE8150-38-35 04:14:00 Test Item Value Reference Range Interpretation Comments MCH (test code = MCH) 27.5 pg 27.0-31.0 [facility] SouthFpgdyfrRQIZBQCXCE5951-87-88 04:14:00 Test Item Value Reference Range Interpretation Comments PTT (test code = PTT) 31.2 s 22.9-35.8 [facility] SouthLziqtcdKOGHGUURGI9922-48-71 04:14:00 Test Item Value Reference Range Interpretation Comments PT (test code = PT) 13.1 s 12.0-14.7 [facility] BranchMskuvadZPBFVEKUYU7590-05-60 04:14:00 Test Item Value Reference Range Interpretation Comments INR (test code = INR) 0.96 0.85-1.17 [facility]nhuzfuMIHLHQ1796[facility]75[facility] 04:14:00 Test Item Value Reference Range Interpretation Comments HDL (test code = HDL) 46 [facility]iscoUzkndlmSFGURZ7165-85-11 04:14:00 Test Item Value Reference Range Interpretation Comments LDL (Calculated) (test code = LDL 69 (Calculated)) [facility] SouthRothgrfZAXLQG5781-39-29 04:14:00 Test Item Value Reference Range Interpretation Comments VLDL (test code = VLDL) 22 [facility]iscoZrvyqdrMTXFCU7454-69-23 04:14:00 Test Item Value Reference Range Interpretation Comments Trig (test code = Trig) 108 [facility]iscoEmojaooAQMSHG0519-58-27 04:14:00 Test Item Value Reference Range Interpretation Comments Chol (test code = Chol) 137 [facility]iscoZnhcwbpRYDKWR0901-27-92 04:14:00 Test Item Value Reference Range Interpretation Comments CHD Risk (test code = CHD Risk) 2.98 4.00-7.30 [facility] SouthSPECIAL YCEPHFMAH7517-26-33 04:14:00 Test Item Value Reference Range Interpretation Comments Hgb A1C (test code = Hgb A1C) 7.0 [facility]iscoannCARDIAC MWUDKRL9593-84-14 17:20:00 Test Item Value Reference Range Interpretation Comments CK MB (test code = CK MB) 1.1 0.5-3.6 [facility]iscoannCARDIAC QMQQVSC3299-59-88 17:20:00 Test Item Value Reference Range Interpretation Comments Troponin-I (test code no gt See_Comment [Auto mated message] The = Troponin-I) system which g enerated this result transmit gabriel reference range : <=0.40. The reference r francheska was not used to interpr et this result as jose angel l/abnormal. [facility] STGPRZO9272-79-14 17:20:00 Test Item Value Reference Range Interpretation Comments Total CK (test code = Total CK) 222 12-191 [facility]iscoCertusNet NHEWBNC5303-89-30 17:20:00 Test Item Value Reference Range Interpretation Comments CK MB Index (test 0.5 See_Comment [Automate d message] The code = CK MB Index) system w [employer] generated this result transmit gabriel reference range : <=2.5. The reference range was not used to interpr et this result as jose angel l/abnormal. [facility] [employer]2016-08-25 17:20:00 Test Item Value Reference Range Interpretation Comments AST (test code = AST) 37 See_Comment [Auto mated message] The system which ge nerated this result transmit gabriel reference range : <=37. The reference range was not used to interpr et this result as jose angel l/abnormal. [facility] [employer]2016-08-25 17:20:00 Test Item Value Reference Range Interpretation Comments Alk Phos (test code = Alk Phos) 157 39-136 [facility] [employer] FMDUH1475-55-39 17:20:00 Test Item Value Reference Range Interpretation Comments Globulin (test code = Globulin) 3.6 2.7-4.2 [facility] [employer]2016-08-25 17:20:00 Test Item Value Reference Range Interpretation Comments Bili Total (test code = Bili Total) 0.6 0.2-1.3 [facility] [employer]2016-08-25 17:20:00 Test Item Value Reference Range Interpretation Comments A/G Ratio (test code = A/G Ratio) 1.1 0.7-1.6 [facility] [employer]2016-08-25 17:20:00 Test Item Value Reference Range Interpretation Comments ALT (test code = ALT) 109 See_Comment [Auto mated message] The system which ge nerated this result transmit gabriel reference range : <=65. The reference range was not used to interpr et this result as jose angel l/abnormal. [employer]2016-08-25 17:20:00 Test Item Value Reference Range Interpretation Comments Albumin Lvl (test code = Albumin Lvl) 4.1 3.5-5.0 [employer]2016-08-25 17:20:00 Test Item Value Reference Range Interpretation Comments Total Protein (test code = Total 7.7 6.4-8.4 Protein) [facility]2016-08-25 17:20:00 Test Item Value Reference Range Interpretation Comments eGFR (test code = eGFR) 92 [facility]2016-08-25 17:20:00 Test Item Value Reference Range Interpretation Comments Glucose Lvl (test code = Glucose Lvl) 153 70-99 [facility]2016-08-25 17:20:00 Test Item Value Reference Range Interpretation Comments B/C Ratio (test code = B/C Ratio) 19 10-21 [facility]2016-08-25 17:20:00 Test Item Value Reference Range Interpretation Comments AGAP (test code = AGAP) 14.1 10.0-20.0 [facility]2016-08-25 17:20:00 Test Item Value Reference Range Interpretation Comments Sodium Lvl (test code = Sodium Lvl) 141 135-145 [facility]2016-08-25 17:20:00 Test Item Value Reference Range Interpretation Comments CO2 (test code = CO2) 27 24-32 [place] 401856-08-25 17:20:00 Test Item Value Reference Range Interpretation Comments Chloride Lvl (test code = Chloride Lvl) 104 95-109 [facility]2016-08-25 17:20:00 Test Item Value Reference Range Interpretation Comments Potassium Lvl (test code = Potassium 4.1 3.5-5.1 Lvl) [facility]2016-08-25 17:20:00 Test Item Value Reference Range Interpretation Comments Calcium Lvl (test code = Calcium Lvl) 8.6 8.5-10.5 [facility]2016-08-25 17:20:00 Test Item Value Reference Range Interpretation Comments Creatinine Lvl (test code = Creatinine 1.02 0.50-1.40 Lvl) [facility]2016-08-25 17:20:00 Test Item Value Reference Range Interpretation Comments BUN (test code = BUN) 19 - [facility]vineArksjelVJQJCMAJWY5813-99-47 17:20:00 Test Item Value Reference Range Interpretation Comments RBC (test code = RBC) 5.37 4.70-6.10 [facility] GrapevineIxsnzpkZREYHQBAMN8677-96-08 17:20:00 Test Item Value Reference Range Interpretation Comments Hgb (test code = Hgb) 14.6 14.0-18.0 [facility] GrapevineYwgiqyeLREKEVQGXJ1111-87-43 17:20:00 Test Item Value Reference Range Interpretation Comments Hct (test code = Hct) 43.2 42.0-54.0 [facility] GrapevineQfeifkfMSRNHDNZRU5341-42-32 17:20:00 Test Item Value Reference Range Interpretation Comments WBC (test code = WBC) 6.3 3.7-10.4 [facility] GrapevinePgmkwtwZDOZEQGBNB2422-86-87 17:20:00 Test Item Value Reference Range Interpretation Comments MPV (test code = MPV) 8.2 7.4-10.4 [facility] GrapevineZxcdlopPSDTKTZWQZ3175-13-18 17:20:00 Test Item Value Reference Range Interpretation Comments MCH (test code = MCH) 27.3 pg 27.0-31.0 [facility] GrapevineNjgcplkMWQWEMOSWF8485-04-67 17:20:00 Test Item Value Reference Range Interpretation Comments MCV (test code = MCV) 80.5 80.0-94.0 [facility] GrapevineGbeiwupJACHRMRHEI0785-36-82 17:20:00 Test Item Value Reference Range Interpretation Comments RDW (test code = RDW) 15.4 11.5-14.5 [facility] GrapevineZjtuaxmIQJJWNASJV4790-91-65 17:20:00 Test Item Value Reference Range Interpretation Comments MCHC (test code = MCHC) 33.9 32.0-36.0 [facility] GrapevineCrftzcrWLJWTGPLZH9841-05-60 17:20:00 Test Item Value Reference Range Interpretation Comments Platelet (test code = Platelet) 276 133-450 [facility] GrapevineNqkxgfgZWFDQAPETP0062-92-02 17:20:00 Test Item Value Reference Range Interpretation Comments INR (test code = INR) 1.02 0.85-1.17 [facility] GrapevineGdihcfhCHQBGBLHCF3894-70-09 17:20:00 Test Item Value Reference Range Interpretation Comments PT (test code = PT) 13.7 s 12.0-14.7 [facility] GrapevineDlynzrdLUOORKMSFN9907-29-54 17:20:00 Test Item Value Reference Range Interpretation Comments PTT (test code = PTT) 32.9 s 22.9-35.8 [facility] GrapevineAbgypskKQTCKEDZNN5634-49-96 17:20:00 Test Item Value Reference Range Interpretation Comments Eosinophils (test code = 1.5 See_Comment [A utomated message] The Eosinophils) system which ge nerated this result tra nsmitted reference range : <=4.0. The reference r francheska was not used to int erpret this result as normal/abnormal . [facility] GrapevineSiztyvdLAWTNCPRPO9692-04-21 17:20:00 Test Item Value Reference Range Interpretation Comments Eosinophils # (test code 0.1 See_Comment [A utomated message] The = Eosinophils #) system [facility] h generated this result tra nsmitted reference range : <=0.5. The reference r francheska was not used to int erpret this result as normal/abnormal . [facility] GrapevineLjckvwfEPLLAEAQOB1909-38-34 17:20:00 Test Item Value Reference Range Interpretation Comments Segs-Bands # (test code = Segs-Bands #) 4.1 1.5-8.1 [facility] GrapevineRizcysvWVBIKKOBRC5427-97-73 17:20:00 Test Item Value Reference Range Interpretation Comments Lymphocytes # (test code = Lymphocytes 1.7 1.0-5.5 #) [facility] GrapevineWylhudeWCUSCPHWGP7813-67-02 17:20:00 Test Item Value Reference Range Interpretation Comments Basophils (test code = 0.7 See_Comment [Aut omated message] The Basophils) system which ge nerated this result tra nsmitted reference range : <=1.0. The reference r francheska was not used to int erpret this result as normal/abnormal . [facility] GrapevineCyzrgceSTQQGUVTFL3033-72-30 17:20:00 Test Item Value Reference Range Interpretation Comments Monocytes (test code = Monocytes) 7.6 2.0-12.0 [facility] GrapevineBpasmvhNLOLSRHWSX5941-89-36 17:20:00 Test Item Value Reference Range Interpretation Comments Monocytes # (test code 0.5 See_Comment [Aut omated message] The = Monocytes #) system which generated this result tra nsmitted reference range : <=0.8. The reference r francheska was not used to int erpret this result as normal/abnormal . [facility] GrapevineTjeamlmQDJIJKMTUJ7655-32-10 17:20:00 Test Item Value Reference Range Interpretation Comments Lymphocytes (test code = Lymphocytes) 26.1 20.0-40.0 [facility] GrapevineNnmnhyjQNMXNDFJOP2565-23-96 17:20:00 Test Item Value Reference Range Interpretation Comments Segs (test code = Segs) 64.1 45.0-75.0 [facility]2016-06-21 08:54:00 Test Item Value Reference Range Interpretation Comments Magnesium Lvl (test code = Magnesium 2.2 1.8-2.4 Lvl) [facility]2016-06-21 08:54:00 Test Item Value Reference Range Interpretation Comments Phosphorus (test code = Phosphorus) 3.4 2.5-4.5 [facility]2016-06-21 08:54:00 Test Item Value Reference Range Interpretation Comments eGFR (test code = eGFR) 102 [facility]2016-06-21 08:54:00 Test Item Value Reference Range Interpretation Comments Calcium Lvl (test code = Calcium Lvl) 9.1 8.5-10.5 [facility]2016-06-21 08:54:00 Test Item Value Reference Range Interpretation Comments Chloride Lvl (test code = Chloride Lvl) 108 95-109 [facility]2016-06-21 08:54:00 Test Item Value Reference Range Interpretation Comments CO2 (test code = CO2) 25 24-32 [facility]2016-06-21 08:54:00 Test Item Value Reference Range Interpretation Comments Creatinine Lvl (test code = Creatinine 0.94 0.50-1.40 Lvl) [facility]2016-06-21 08:54:00 Test Item Value Reference Range Interpretation Comments Glucose Lvl (test code = Glucose Lvl) 123 70-99 [facility]2016-06-21 08:54:00 Test Item Value Reference Range Interpretation Comments Sodium Lvl (test code = Sodium Lvl) 140 135-145 [facility]2016-06-21 08:54:00 Test Item Value Reference Range Interpretation Comments BUN (test code = BUN) 10 7-22 [facility]2016-06-21 08:54:00 Test Item Value Reference Range Interpretation Comments Potassium Lvl (test code = Potassium 4.0 3.5-5.1 Lvl) [facility]2016-06-21 08:54:00 Test Item Value Reference Range Interpretation Comments AGAP (test code = AGAP) 11.0 10.0-20.0 [facility] BranchOhjfljaDWMPOZMHMX9845-06-16 08:54:00 Test Item Value Reference Range Interpretation Comments Eosinophils # (test code 0.1 See_Comment [A utomated message] The = Eosinophils #) system whic h generated this result tra nsmitted reference range : <=0.5. The reference r francheska was not used to int erpret this result as normal/abnormal . [facility] GrapevineTjmzcftFUDCTZVBLT8556-59-10 08:54:00 Test Item Value Reference Range Interpretation Comments Segs-Bands # (test code = Segs-Bands #) 3.1 1.5-8.1 [facility] GrapevinePyjlttgXLTNDOVJDH6319-81-97 08:54:00 Test Item Value Reference Range Interpretation Comments Lymphocytes # (test code = Lymphocytes 1.4 1.0-5.5 #) [facility] GrapevineNffmtpjTARPNHWEKL9723-16-78 08:54:00 Test Item Value Reference Range Interpretation Comments Monocytes # (test code 0.5 See_Comment [Aut omated message] The = Monocytes #) system which generated this result tra nsmitted reference range : <=0.8. The reference r francheska was not used to int erpret this result as normal/abnormal . [facility] GrapevineRmdwnpkSSKFZBHVHX2469-07-07 08:54:00 Test Item Value Reference Range Interpretation Comments Eosinophils (test code = 2.2 See_Comment [A utomated message] The Eosinophils) system which ge nerated this result tra nsmitted reference range : <=4.0. The reference r francheska was not used to int erpret this result as normal/abnormal . [facility] GrapevineJszlcdmCECOCZDVYT4508-15-66 08:54:00 Test Item Value Reference Range Interpretation Comments Basophils (test code = 1.0 See_Comment [Aut omated message] The Basophils) system which ge nerated this result tra nsmitted reference range : <=1.0. The reference r francheska was not used to int erpret this result as normal/abnormal . [facility] GrapevineGucebgsZVYRHRYJFX8954-89-00 08:54:00 Test Item Value Reference Range Interpretation Comments Segs (test code = Segs) 60.4 45.0-75.0 [facility] GrapevineYauuturXVGYOMFCEI5748-38-17 08:54:00 Test Item Value Reference Range Interpretation Comments Lymphocytes (test code = Lymphocytes) 27.3 20.0-40.0 [facility] GrapevineCvzghrjMFCNISAIQC0623-81-72 08:54:00 Test Item Value Reference Range Interpretation Comments Monocytes (test code = Monocytes) 9.1 2.0-12.0 [facility] GrapevineGloutjvCCTDSAYQZC9828-95-28 08:54:00 Test Item Value Reference Range Interpretation Comments Protein S Func (test code = Protein S 94 54-137 Func) [facility] GrapevinePldvsqxEMOTOSSCQH5383-80-72 08:54:00 Test Item Value Reference Range Interpretation Comments MPV (test code = MPV) 8.5 7.4-10.4 [facility] GrapevineNgqmrucZOEVBZFZRL3839-44-59 08:54:00 Test Item Value Reference Range Interpretation Comments MCHC (test code = MCHC) 33.2 32.0-36.0 [facility] GrapevineDryjkcuUGDZYCHQDM4633-92-02 08:54:00 Test Item Value Reference Range Interpretation Comments MCV (test code = MCV) 82.6 80.0-94.0 [facility]rapevinePqfpvwgFZSRXWZRNH3312-48-32 08:54:00 Test Item Value Reference Range Interpretation Comments RDW (test code = RDW) 13.0 11.5-14.5 [facility] GrapevineQklwjudPSZUZIQIIS0920-15-15 08:54:00 Test Item Value Reference Range Interpretation Comments Platelet (test code = Platelet) 338 133-450 [facility] GrapevinePelunfsYLLTBNCERY7306-21-61 08:54:00 Test Item Value Reference Range Interpretation Comments MCH (test code = MCH) 27.4 pg 27.0-31.0 [facility] GrapevineOcqacoeNTABXOESEB2233-24-72 08:54:00 Test Item Value Reference Range Interpretation Comments WBC (test code = WBC) 5.1 3.7-10.4 [facility] GrapevineQvoknieLSNPBUCPCM4110-51-34 08:54:00 Test Item Value Reference Range Interpretation Comments RBC (test code = RBC) 5.68 4.70-6.10 [facility] GrapevinePclcaibRCYSBWYTQZ8172-47-18 08:54:00 Test Item Value Reference Range Interpretation Comments Hgb (test code = Hgb) 15.6 14.0-18.0 [facility] GrapevineVzbawbzPMQVCBCWFH8467-15-36 08:54:00 Test Item Value Reference Range Interpretation Comments Hct (test code = Hct) 47.0 42.0-54.0 [facility] GrapevineKhqqbitAJIUVSVMPW3323-48-01 10:44:00 Test Item Value Reference Range Interpretation Comments PTT (test code = PTT) 72.1 s 22.9-35.8 [facility]2016-06-20 06:26:00 Test Item Value Reference Range Interpretation Comments Magnesium Lvl (test code = Magnesium 1.7 1.8-2.4 Lvl) [facility]2016-06-20 06:26:00 Test Item Value Reference Range Interpretation Comments Phosphorus (test code = Phosphorus) 3.5 2.5-4.5 [facility]2016-06-20 06:26:00 Test Item Value Reference Range Interpretation Comments eGFR (test code = eGFR) 89 [facility]2016-06-20 06:26:00 Test Item Value Reference Range Interpretation Comments Calcium Lvl (test code = Calcium Lvl) 8.9 8.5-10.5 [facility]2016-06-20 06:26:00 Test Item Value Reference Range Interpretation Comments Creatinine Lvl (test code = Creatinine 1.05 0.50-1.40 Lvl) [facility]2016-06-20 06:26:00 Test Item Value Reference Range Interpretation Comments Sodium Lvl (test code = Sodium Lvl) 137 135-145 [facility]2016-06-20 06:26:00 Test Item Value Reference Range Interpretation Comments Potassium Lvl (test code = Potassium 5.0 3.5-5.1 Lvl) [facility]2016-06-20 06:26:00 Test Item Value Reference Range Interpretation Comments CO2 (test code = CO2) 22 24-32 [facility]2016-06-20 06:26:00 Test Item Value Reference Range Interpretation Comments Chloride Lvl (test code = Chloride Lvl) 107 95-109 [facility]2016-06-20 06:26:00 Test Item Value Reference Range Interpretation Comments BUN (test code = BUN) 12 7-22 [facility]2016-06-20 06:26:00 Test Item Value Reference Range Interpretation Comments Glucose Lvl (test code = Glucose Lvl) 156 70-99 [facility]2016-06-20 06:26:00 Test Item Value Reference Range Interpretation Comments AGAP (test code = AGAP) 13.0 10.0-20.0 [facility]vineJvnqjneOFPWXWJGZY6734-09-39 06:26:00 Test Item Value Reference Range Interpretation Comments Basophils (test code = 1.1 See_Comment [Aut omated message] The Basophils) system which ge nerated this result tra nsmitted reference range : <=1.0. The reference r francheska was not used to int erpret this result as normal/abnormal . [facility]vineJnaxcvpFVXGRFBCPX8634-83-89 06:26:00 Test Item Value Reference Range Interpretation Comments Lymphocytes (test code = Lymphocytes) 35.1 20.0-40.0 [facility]vineHuxpjpkWKIUATXADC8515-10-86 06:26:00 Test Item Value Reference Range Interpretation Comments Eosinophils (test code = 3.4 See_Comment [A utomated message] The Eosinophils) system which ge nerated this result tra nsmitted reference range : <=4.0. The reference r francheska was not used to int erpret this result as normal/abnormal . [facility]vineUicroidIZIPBNCFKG3374-55-82 06:26:00 Test Item Value Reference Range Interpretation Comments Segs (test code = Segs) 51.4 45.0-75.0 [facility]rapevineDlhwkpoNOPKEFHJYM3489-45-73 06:26:00 Test Item Value Reference Range Interpretation Comments Segs-Bands # (test code = Segs-Bands #) 2.4 1.5-8.1 [facility]vineCqeojheWUWGYTFMWD3822-99-88 06:26:00 Test Item Value Reference Range Interpretation Comments Monocytes (test code = Monocytes) 9.0 2.0-12.0 [facility]vinePoawooyVSDBUSNNGL9272-19-76 06:26:00 Test Item Value Reference Range Interpretation Comments Lymphocytes # (test code = Lymphocytes 1.6 1.0-5.5 #) [facility]rapevineXanaprpVALTITCJUH5427-27-29 06:26:00 Test Item Value Reference Range Interpretation Comments Eosinophils # (test code 0.2 See_Comment [A utomated message] The = Eosinophils #) system whic h generated this result tra nsmitted reference range : <=0.5. The reference r francheska was not used to int erpret this result as normal/abnormal . [facility]rapevineIesndaiCXIYMTLROJ5963-00-59 06:26:00 Test Item Value Reference Range Interpretation Comments Basophils # (test code 0.1 See_Comment [Aut omated message] The = Basophils #) system which generated this result tra nsmitted reference range : <=0.2. The reference r francheska was not used to int erpret this result as normal/abnormal . [facility]vineUhmbyjmMIPROLJPGZ4080-04-53 06:26:00 Test Item Value Reference Range Interpretation Comments Monocytes # (test code 0.4 See_Comment [Aut omated message] The = Monocytes #) system which generated this result tra nsmitted reference range : <=0.8. The reference r francheska was not used to int erpret this result as normal/abnormal . [facility]rapevineOxaclteZAETFVSZHQ1097-73-47 06:26:00 Test Item Value Reference Range Interpretation Comments Hgb (test code = Hgb) 15.5 14.0-18.0 [facility]rapevineXzeahoiEQOAILSVFF6064-33-74 06:26:00 Test Item Value Reference Range Interpretation Comments MCHC (test code = MCHC) 33.8 32.0-36.0 [facility]rapevineYhuyebfKRHQTKVVZA7195-15-93 06:26:00 Test Item Value Reference Range Interpretation Comments MCH (test code = MCH) 28.2 pg 27.0-31.0 [facility]vineGmifvtkOWANJORPMV1215-60-15 06:26:00 Test Item Value Reference Range Interpretation Comments MCV (test code = MCV) 83.5 80.0-94.0 [facility]rapevineNxqjuwlBDZERHWETM2953-72-63 06:26:00 Test Item Value Reference Range Interpretation Comments RBC (test code = RBC) 5.49 4.70-6.10 [facility]vineIodfdrjLAPVICAEBV7563-80-72 06:26:00 Test Item Value Reference Range Interpretation Comments Hct (test code = Hct) 45.9 42.0-54.0 [facility]vineXodhslfWGZIIXQXST1137-17-46 06:26:00 Test Item Value Reference Range Interpretation Comments Platelet (test code = Platelet) 343 133-450 [facility]rapevineJhmcnaaJTNINMAQDP9669-66-79 06:26:00 Test Item Value Reference Range Interpretation Comments RDW (test code = RDW) 13.3 11.5-14.5 [facility]rapevineTqqoogjIDHTWHIAXT7460-90-53 06:26:00 Test Item Value Reference Range Interpretation Comments MPV (test code = MPV) 8.6 7.4-10.4 [facility]vineXfjkrqrWTFHWKGDBO7037-35-68 06:26:00 Test Item Value Reference Range Interpretation Comments WBC (test code = WBC) 4.7 3.7-10.4 [facility]vineHqtrjcwNPXUMDVRAQ6205-49-30 06:26:00 Test Item Value Reference Range Interpretation Comments Protein S Func (test code = Protein S 79 54-137 [address]) [facility]2016-06-20 06:26:00 Test Item Value Reference Range Interpretation Comments Ca Norm WB (test code = Ca Norm WB) 0.98 1.05-1.25 [facility]2016-06-20 06:26:00 Test Item Value Reference Range Interpretation Comments Ca Ion WB (test code = Ca Ion WB) 0.99 1.05-1.25 [facility]vineHnhhrtyZZNIIHVGKN9397-45-02 02:59:00 Test Item Value Reference Range Interpretation Comments PTT (test code = PTT) 47.3 s 22.9-35.8 [facility]rapevineDwexxhfDCANGJVGUA6491-79-67 18:39:00 Test Item Value Reference Range Interpretation Comments PTT (test code = PTT) 64.1 s 22.9-35.8 [facility]2016-06-19 04:29:00 Test Item Value Reference Range Interpretation Comments Magnesium Lvl (test code = Magnesium 1.8 1.8-2.4 Lvl) [facility]2016-06-19 04:29:00 Test Item Value Reference Range Interpretation Comments Phosphorus (test code = Phosphorus) 3.4 2.5-4.5 [facility]FxteiwjTJXVYQUKKTBC1845-41-69 04:29:00 Test Item Value Reference Range Interpretation Comments AGAP (test code = AGAP) 14.8 10.0-20.0 [facility] HealthCvzpxrpMHRLSXLIHTHL2158-51-88 04:29:00 Test Item Value Reference Range Interpretation Comments Creatinine Lvl (test code = Creatinine 1.14 0.50-1.40 Lvl) [facility] HealthNalpaloPNXNFJRTPARQ6593-62-66 04:29:00 Test Item Value Reference Range Interpretation Comments Glucose Lvl (test code = Glucose Lvl) 138 70-99 [facility] HealthBmvoxwmRUANJVPKTQCO1187-10-87 04:29:00 Test Item Value Reference Range Interpretation Comments BUN (test code = BUN) 14 7-22 [facility] HealthUuymyukYKVJJUBHABMH8954-87-88 04:29:00 Test Item Value Reference Range Interpretation Comments Potassium Lvl (test code = Potassium 3.8 3.5-5.1 Lvl) [facility] HealthFsyqmmfGCCNTTLAJKMO4262-76-58 04:29:00 Test Item Value Reference Range Interpretation Comments Sodium Lvl (test code = Sodium Lvl) 141 135-145 [facility] HealthKzhgjkuRPPNMZXILKMY2503-31-60 04:29:00 Test Item Value Reference Range Interpretation Comments Calcium Lvl (test code = Calcium Lvl) 8.3 8.5-10.5 [facility] HealthVztsgfxVLDYLIDLJFIF7486-65-27 04:29:00 Test Item Value Reference Range Interpretation Comments CO2 (test code = CO2) 24 24-32 [facility] HealthWghgzlmULJOCPXCQBYE8237-95-17 04:29:00 Test Item Value Reference Range Interpretation Comments Chloride Lvl (test code = Chloride Lvl) 106 95-109 [facility] HealthBvxbdisUYXFEHLNBPZZ0628-67-59 04:29:00 Test Item Value Reference Range Interpretation Comments eGFR (test code = eGFR) 81 [facility]vineSeikaivBSOXJGUVER9555-96-96 04:29:00 Test Item Value Reference Range Interpretation Comments Protein S Func (test code = Protein S 67 54-137 Func) [facility]vineEnokzpaPHUPJZOVDD0697-76-48 04:29:00 Test Item Value Reference Range Interpretation Comments Protein C Func (test code = Protein C 78 72-147 Func) [facility]vineJblhgdqBYGPHFXNGL6121-36-68 04:29:00 Test Item Value Reference Range Interpretation Comments MCV (test code = MCV) 82.6 80.0-94.0 [facility]rapevineMwskrrpOVWOBOSTBR5623-32-41 04:29:00 Test Item Value Reference Range Interpretation Comments MCH (test code = MCH) 27.4 pg 27.0-31.0 [facility]rapevineNkdlmtqQUCCNSKGHR4866-51-34 04:29:00 Test Item Value Reference Range Interpretation Comments MCHC (test code = MCHC) 33.1 32.0-36.0 [facility]rapevineBtzgjivDTTMBXMXUD3544-86-33 04:29:00 Test Item Value Reference Range Interpretation Comments RDW (test code = RDW) 12.9 11.5-14.5 [facility]rapevineEsoozmaEBZZHXGDWL7904-82-58 04:29:00 Test Item Value Reference Range Interpretation Comments Platelet (test code = Platelet) 362 133-450 [facility] GrapevineQharkamDVNNLFRHEF4992-21-18 04:29:00 Test Item Value Reference Range Interpretation Comments MPV (test code = MPV) 9.1 7.4-10.4 [facility]rapevineShuugkiYDOKCAQWJF3567-27-28 04:29:00 Test Item Value Reference Range Interpretation Comments RBC (test code = RBC) 5.62 4.70-6.10 [facility]rapevineRkvsnnnJBSJRWTKDY9793-55-18 04:29:00 Test Item Value Reference Range Interpretation Comments Hgb (test code = Hgb) 15.4 14.0-18.0 [facility]vineUmmljnsBEPIPHMUMR3971-26-37 04:29:00 Test Item Value Reference Range Interpretation Comments Hct (test code = Hct) 46.4 42.0-54.0 [facility]rapevineQswotieDYRNBERPVD0718-94-18 04:29:00 Test Item Value Reference Range Interpretation Comments WBC (test code = WBC) 4.1 3.7-10.4 [facility]rapevineOtwhocuTTWKWZKFCU4636-06-27 04:29:00 Test Item Value Reference Range Interpretation Comments Basophils # (test code 0.1 See_Comment [Aut omated message] The = Basophils #) system which generated this result tra nsmitted reference range : <=0.2. The reference r francheska was not used to int erpret this result as normal/abnormal . [facility]rapevineUkulvsaCTTXOWBOTT6007-83-89 04:29:00 Test Item Value Reference Range Interpretation Comments Eosinophils (test code = 3.9 See_Comment [A utomated message] The Eosinophils) system which ge nerated this result tra nsmitted reference range : <=4.0. The reference r francheska was not used to int erpret this result as normal/abnormal . [facility]rapevineOpzefzlTTPRKQVJBG5159-61-07 04:29:00 Test Item Value Reference Range Interpretation Comments Basophils (test code = 1.2 See_Comment [Aut omated message] The Basophils) system which ge nerated this result tra nsmitted reference range : <=1.0. The reference r francheska was not used to int erpret this result as normal/abnormal . [facility]rapevineSgcyetvTCPBVBRHAX9016-58-23 04:29:00 Test Item Value Reference Range Interpretation Comments Monocytes # (test code 0.5 See_Comment [Aut omated message] The = Monocytes #) system which generated this result tra nsmitted reference range : <=0.8. The reference r francheska was not used to int erpret this result as normal/abnormal . [facility] GrapevineZztslstCSSCXORIVJ8330-46-98 04:29:00 Test Item Value Reference Range Interpretation Comments Eosinophils # (test code 0.2 See_Comment [A utomated message] The = Eosinophils #) system whic h generated this result tra nsmitted reference range : <=0.5. The reference r francheska was not used to int erpret this result as normal/abnormal . [facility]vineHnvtmttQJREFXTWKR1284-15-82 04:29:00 Test Item Value Reference Range Interpretation Comments Segs-Bands # (test code = Segs-Bands #) 1.8 1.5-8.1 [facility]rapevineGphcdzrQJYDJLHJMO8382-91-39 04:29:00 Test Item Value Reference Range Interpretation Comments Lymphocytes # (test code = Lymphocytes 1.6 1.0-5.5 #) [facility]rapevineFyyzpjnTJZHGRSTQS1561-40-46 04:29:00 Test Item Value Reference Range Interpretation Comments Segs (test code = Segs) 43.9 45.0-75.0 [facility] GrapevineZmdntffWESCMZYQMX4413-80-89 04:29:00 Test Item Value Reference Range Interpretation Comments Lymphocytes (test code = Lymphocytes) 39.3 20.0-40.0 [facility] GrapevineKxsxsakFHUDOSYYAF8485-20-81 04:29:00 Test Item Value Reference Range Interpretation Comments Monocytes (test code = Monocytes) 11.7 2.0-12.0 [facility]rapevineUgdtmbyQJXPXFOSYJ4521-77-58 20:32:00 Test Item Value Reference Range Interpretation Comments AT III Func (test code = AT III Func) 107 77-140 [facility] GrapevineGaflweoRADEDUWUWH9903-14-02 20:32:00 Test Item Value Reference Range Interpretation Comments Lup Interp (test Negative for lupus code = Lup Interp) anticoagulant with all tests performed (dRVVT, and hexagonal phospholipid neutralization). CPT: 83929 [facility] GrapevineIapvpgdIEDLQASPOB0492-48-77 20:32:00 Test Item Value Reference Range Interpretation Comments Hex Phos N (test code Negative (10/15/15 3:32 = Hex Phos N) PM) [facility]rapevineFkppusnBRCAZJERPK7586-70-61 20:32:00 Test Item Value Reference Range Interpretation Comments dRVV Ratio (test code = dRVV Ratio) 0.99 [place] 440456-06-18 20:32:00 Test Item Value Reference Range Interpretation Comments F2 Mut Interp (test FACTOR II PT: Negative code = F2 Mut INTERPRETATION: Molecular Interp) analysis for the Factor II (Prothrombin) 63140D>A mutation was negative. Other causes of elevated prothrombin levels and hereditary forms of venous thrombosis are not ruled out. Final diagnosis requires correlation with clinical history and other pertinent laboratory findings. Where appropriate, medical consultation and genetic counseling should be offered to inform and explain the risk implications and genetic implications of these test results. ASSAY LIMITATIONS: The assay uses the FDA-cleared [employer] Factor II (Prothrombin) [id number] IVD (Polymerase chain reaction/FRET detection)kit, [employer] LC Instrument and the [employer] Light[employer]ycler 1.2 Instrument. A 165-bp fragment of Factor II gene(FII) containing the Factor II [id number] sequence is amplified in the assay. The assay is designed to detect the [id number] mutation only. Other causes of elevated prothrombin levels and hereditary forms of venous thrombosis are not ruled out. However, the melting curve analysis may implicate the presence of a possible rare mutation at position 41778 (Further testing will be recommended in the report). A minimum detection level is 198 copies of Factor II per reaction. The level of agreement between the Factor II(Prothrombin) [id number] Kit and sequence analysis was 98.9%. The test result must be interpreted along with the patient's clinical history and revelant laboratory data. This assay has been validated by [facility]. [facility]rapevineFrcevnhBDGZAOVOKJ6752-68-76 20:32:00 Test Item Value Reference Range Interpretation Comments F2 Mutation PCR (test Negative (10/15/15 3:32 code = F2 Mutation PCR) PM) [facility] SouthUasjhgnXVGAIXEZLU3210-24-20 20:32:00 Test Item Value Reference Range Interpretation Comments Beta2-Glycoprotein IgA (test code = no gt Beta2-Glycoprotein IgA) [facility] SouthSdnanypTGVAZTWRFG5148-83-55 20:32:00 Test Item Value Reference Range Interpretation Comments Beta2-Glycoprotein IgG (test code = no gt Beta2-Glycoprotein IgG) [facility] SouthYyopleaKOQFLFPPMG6920-28-30 20:32:00 Test Item Value Reference Range Interpretation Comments Beta2-Glycoprotein IgM (test code = 0.2 Beta2-Glycoprotein IgM) [facility]rapevineUrhfeyfCIVNVDPNST4508-14-45 20:15:00 Test Item Value Reference Range Interpretation Comments INR (test code = INR) 1.28 0.85-1.17 [facility] BranchLjtivmlWIUITKKJNY1888-33-42 20:15:00 Test Item Value Reference Range Interpretation Comments PT (test code = PT) 16.3 s 12.0-14.7 [facility]vineIkgxsnmXOMRGSWQQI7987-99-44 12:05:00 Test Item Value Reference Range Interpretation Comments Basophils # (test code 0.1 See_Comment [Aut omated message] The = Basophils #) system which generated this result tra nsmitted reference range : <=0.2. The reference r francheska was not used to int erpret this result as normal/abnormal . [facility]rapevineEmihjzbYIAPMOAHQA5333-65-67 12:05:00 Test Item Value Reference Range Interpretation Comments RBC Morph (test code = Normal (10/15/15 7:05 RBC Morph) AM) [facility]rapevineKacwafxWPDZRBMSMY4474-28-75 12:05:00 Test Item Value Reference Range Interpretation Comments Plt Morph (test code = Normal (10/15/15 7:05 Plt Morph) AM) [facility]vineGavrlcgCXJESVRJUA1301-17-60 20:47:00 Test Item Value Reference Range Interpretation Comments PT (test code = PT) 17.7 s 12.0-14.7 [facility]rapevineRnjvmamCLWFBMVLYC9815-93-74 20:47:00 Test Item Value Reference Range Interpretation Comments INR (test code = INR) 1.42 0.85-1.17 [facility] QPVZTY4569-21-80 19:11:00 Test Item Value Reference Range Interpretation Comments U Opiate Scr (test Negative *NA*(10/14/15 code = U Opiate Scr) 2:11 PM) [facility] [id number] 19:11:00 Test Item Value Reference Range Interpretation Comments U Carmelina Scr (test code Negative *NA*(10/14/15 = U Carmelina Scr) 2:11 PM) [facility] [id number] 19:11:00 Test Item Value Reference Range Interpretation Comments U Benzodia Scr (test Positive *ABN*(10/14/15 code = U Benzodia Scr) 2:11 PM) [facility] GYDAQJ4483-47-64 19:11:00 Test Item Value Reference Range Interpretation Comments U Cocaine Scr (test Negative *NA*(10/14/15 code = U Cocaine Scr) 2:11 PM) [facility] [id number] 19:11:00 Test Item Value Reference Range Interpretation Comments U Cannab Scr (test Negative *NA*(10/14/15 code = U Cannab Scr) 2:11 PM) [facility] KFERJQ4740-48-82 19:11:00 Test Item Value Reference Range Interpretation Comments U Phencyc Scr (test Negative *NA*(10/14/15 code = U Phencyc Scr) 2:11 PM) [facility] [id number] 19:11:00 Test Item Value Reference Range Interpretation Comments UDS Note (test code = See Note (10/14/15 2:11 UDS Note) PM) [facility] [id number] 19:11:00 Test Item Value Reference Range Interpretation Comments U Methadone Scr (test Negative *NA*(10/14/15 code = U Methadone Scr) 2:11 PM) [facility] [id number] 19:11:00 Test Item Value Reference Range Interpretation Comments U Propoxyph Scr (test Negative *NA*(10/14/15 code = U Propoxyph Scr) 2:11 PM) [facility] [id number] 19:11:00 Test Item Value Reference Range Interpretation Comments U Amph Scr (test code Negative *NA*(10/14/15 = U Amph Scr) 2:11 PM) [facility] GlqmxwwTVVNCP7601-21-92 05:28:00 Test Item Value Reference Range Interpretation Comments VLDL (test code = VLDL) 35 [facility] TososifGQFWVU8603-08-64 05:28:00 Test Item Value Reference Range Interpretation Comments LDL (Calculated) (test code = LDL 59 (Calculated)) [facility] XbenmbhALOKVH5185-71-62 05:28:00 Test Item Value Reference Range Interpretation Comments CHD Risk (test code = CHD Risk) 4.13 4.00-7.30 [facility] VjvpuicOHHVOF4429-49-33 05:28:00 Test Item Value Reference Range Interpretation Comments Chol (test code = Chol) 124 [facility] MeocduqUPPKKB0894-85-18 05:28:00 Test Item Value Reference Range Interpretation Comments Trig (test code = Trig) 176 [facility] IrrfoyiPVZTMY3406-78-05 05:28:00 Test Item Value Reference Range Interpretation Comments HDL (test code = HDL) 30 [facility] AND [id number] 05:28:00 Test Item Value Reference Range Interpretation Comments UA Color (test code = Yellow *NA*(10/14/15 UA Color) 12:28 AM) [facility] AND [id number] 05:28:00 Test Item Value Reference Range Interpretation Comments UA Turbidity (test code Slight Cloudy = UA Turbidity) (10/14/15 12:28 AM) [facility] AND [id number] 05:28:00 Test Item Value Reference Range Interpretation Comments UA Ketones (test code Negative *NA*(10/14/15 = UA Ketones) 12:28 AM) [facility] AND [id number] 05:28:00 Test Item Value Reference Range Interpretation Comments UA Bili (test code = Negative *NA*(10/14/15 UA Bili) 12:28 AM) [facility] AND [id number] 05:28:00 Test Item Value Reference Range Interpretation Comments UA Blood (test code = Negative (10/14/15 12:28 UA Blood) AM) [facility] AND [id number] 05:28:00 Test Item Value Reference Range Interpretation Comments UA Spec Grav (test code = UA Spec 1.039 1 Grav) [facility] AND [id number] 05:28:00 Test Item Value Reference Range Interpretation Comments UA pH (test code = UA pH) 5.5 1 5.0-8.0 [facility] AND [id number] 05:28:00 Test Item Value Reference Range Interpretation Comments UA Protein (test code Negative (10/14/15 12:28 = UA Protein) AM) [facility] AND [id number] 05:28:00 Test Item Value Reference Range Interpretation Comments UA Glucose (test code Negative (10/14/15 12:28 = UA Glucose) AM) [facility] AND [id number] 05:28:00 Test Item Value Reference Range Interpretation Comments UA WBC (test code = UA WBC) 0-2 /HPF [facility] AND [id number] 05:28:00 Test Item Value Reference Range Interpretation Comments UA Sq Epi (test code = UA Sq Epi) Rare /LPF [facility] [id number] 05:28:00 Test Item Value Reference Range Interpretation Comments UA Bacteria (test code = UA Few /HPF Bacteria) [facility] [id number] 05:28:00 Test Item Value Reference Range Interpretation Comments UA RBC (test code = 0-2 /HPF See_Comment [Automa gabriel message] The UA RBC) system which ge nerated this result tra nsmitted reference range : <=2. The reference range was not used to interpr et this result as jose angel l/abnormal. [facility] [id number] 05:28:00 Test Item Value Reference Range Interpretation Comments UA Leuk Est (test Negative (10/14/15 12:28 code = UA Leuk Est) AM) [facility] [id number] 05:28:00 Test Item Value Reference Range Interpretation Comments UA Urobilinogen (test code = UA 0.2 0.1-1.0 Urobilinogen) [facility] AND [id number] 05:28:00 Test Item Value Reference Range Interpretation Comments UA Nitrite (test code Positive *ABN*(10/14/15 = UA Nitrite) 12:28 AM) [facility] [id number] 03:47:00 Test Item Value Reference Range Interpretation Comments Troponin-I (test code no gt See_Comment [Auto mated message] The = Troponin-I) system which g enerated this result transmit gabriel reference range : <=0.40. The reference r francheska was not used to interpr et this result as jose angel l/abnormal. [facility] solutionannCARDIAC [id number] 03:47:00 Test Item Value Reference Range Interpretation Comments CK MB (test code = CK MB) 0.7 0.5-3.6 [facility] [id number] 03:47:00 Test Item Value Reference Range Interpretation Comments Total CK (test code = Total CK) 161 12-191 [facility] [id number] 03:47:00 Test Item Value Reference Range Interpretation Comments CK MB Index (test 0.4 See_Comment [Automate d message] The code = CK MB Index) system w [facility] generated this result transmit gabriel reference range : <=2.5. The reference range was not used to interpr et this result as jose angel l/abnormal. [facility]pqfcabNTWFYGNTJN9451-86-07 03:47:00 Test Item Value Reference Range Interpretation Comments INR (test code = INR) 1.46 0.85-1.17 [facility] SouthCzgzmbuPVMDXTTKHT8149-73-35 03:47:00 Test Item Value Reference Range Interpretation Comments PT (test code = PT) 18.1 s 12.0-14.7 [facility] [place]: [place]) [id number] 03:27:00 Test Item Value Reference Range Interpretation Comments Antibody Scrn (test Negative (10/13/15 code = Antibody Scrn) 10:27 PM) [facility] [place] ([place]: [place]) [id number] 03:27:00 Test Item Value Reference Range Interpretation Comments ABO/Rh (test code = ABO/Rh) O POS [facility] [id number] 03:27:00 Test Item Value Reference Range Interpretation Comments POC Creatinine (test code = POC 1.2 0.5-1.4 Creatinine) [facility] [employer]2016-06-06 05:17:00 Test Item Value Reference Range Interpretation Comments Phosphorus (test code = Phosphorus) 3.2 2.5-4.5 [facility] [id number] 05:17:00 Test Item Value Reference Range Interpretation Comments Magnesium Lvl (test code = Magnesium 1.5 1.8-2.4 Lvl) [facility]WikieltOBTNAIJIVZAP0770-32-67 05:17:00 Test Item Value Reference Range Interpretation Comments AGAP (test code = AGAP) 10.6 10.0-20.0 [facility]KznfprsOAZWYGZRTGWC3805-99-57 05:17:00 Test Item Value Reference Range Interpretation Comments Calcium Lvl (test code = Calcium Lvl) 8.5 8.5-10.5 [facility]iscoIhkibsaJNPNZCJRCMXU7136-75-39 05:17:00 Test Item Value Reference Range Interpretation Comments Potassium Lvl (test code = Potassium 3.6 3.5-5.1 Lvl) [facility]iscoQyaujcfTHSAPIYYCXFF9542-71-70 05:17:00 Test Item Value Reference Range Interpretation Comments Chloride Lvl (test code = Chloride Lvl) 107 95-109 [facility]HkfoibqTDBEZRKASCUE3653-64-05 05:17:00 Test Item Value Reference Range Interpretation Comments eGFR (test code = eGFR) 91 [facility]QslfrnyKDWVISEBMXUP6010-13-14 05:17:00 Test Item Value Reference Range Interpretation Comments CO2 (test code = CO2) 25 24-32 [facility] HealthCzyesbbWYXEABYUSCKX4149-09-88 05:17:00 Test Item Value Reference Range Interpretation Comments Creatinine Lvl (test code = Creatinine 1.03 0.50-1.40 Lvl) [facility] HealthNifbwayLIVMPIQHZBAT4310-04-33 05:17:00 Test Item Value Reference Range Interpretation Comments Sodium Lvl (test code = Sodium Lvl) 139 135-145 [facility] HealthGfgvcnxOEZZWRAQFXIK0999-54-89 05:17:00 Test Item Value Reference Range Interpretation Comments BUN (test code = BUN) 11 7-22 [facility] HealthNndavbsGADHNDIUNXNS7368-09-08 05:17:00 Test Item Value Reference Range Interpretation Comments Glucose Lvl (test code = Glucose Lvl) 205 70-99 [facility]vineJtkgkftNFLSCQYUMS7388-78-68 05:17:00 Test Item Value Reference Range Interpretation Comments Hgb (test code = Hgb) 14.8 14.0-18.0 [facility]rapevineHwuwhcyYKOJNFCEHV9130-72-38 05:17:00 Test Item Value Reference Range Interpretation Comments Hct (test code = Hct) 43.9 42.0-54.0 [facility]rapevineIzfpgwbZDMOSKEWPZ0202-73-18 05:17:00 Test Item Value Reference Range Interpretation Comments MCV (test code = MCV) 84.9 80.0-94.0 [facility]rapevineQpzslfjOSNNOSEFKM8264-76-97 05:17:00 Test Item Value Reference Range Interpretation Comments WBC (test code = WBC) 7.2 3.7-10.4 [facility]rapevineHyfkmnkFMIYALTCSX0682-20-58 05:17:00 Test Item Value Reference Range Interpretation Comments RBC (test code = RBC) 5.17 4.70-6.10 [facility] GrapevineZbumkmmLKLVNGYZBY9002-55-56 05:17:00 Test Item Value Reference Range Interpretation Comments MCH (test code = MCH) 28.5 pg 27.0-31.0 [facility] GrapevineAehhunqOGCOHTRSQW7368-75-06 05:17:00 Test Item Value Reference Range Interpretation Comments MCHC (test code = MCHC) 33.6 32.0-36.0 [facility]rapevinePfhvwcqZHXEEFBYIL3970-81-04 05:17:00 Test Item Value Reference Range Interpretation Comments RDW (test code = RDW) 13.0 11.5-14.5 [facility]rapevineNyvhkgnGOOHZNCABT2705-86-86 05:17:00 Test Item Value Reference Range Interpretation Comments Platelet (test code = Platelet) 300 133-450 [facility] GrapevineYytbfdlHFEPYODRXA0082-58-42 05:17:00 Test Item Value Reference Range Interpretation Comments MPV (test code = MPV) 8.3 7.4-10.4 [facility]rapevineYkfllyiQWMNKAGMOC0883-59-18 05:17:00 Test Item Value Reference Range Interpretation Comments PT (test code = PT) 17.6 s 12.0-14.7 [facility]rapevineGgrqnzjKSIABMKXOF2793-89-53 05:17:00 Test Item Value Reference Range Interpretation Comments INR (test code = INR) 1.41 0.85-1.17 [facility] GrapevineIgbxbyoXNKWMHIKLZ8923-10-54 05:17:00 Test Item Value Reference Range Interpretation Comments Basophils # (test code 0.1 See_Comment [Aut omated message] The = Basophils #) system which generated this result tra nsmitted reference range : <=0.2. The reference r francheska was not used to int erpret this result as normal/abnormal . [facility] GrapevineZatbypoVLSSUKUTCQ1860-29-19 05:17:00 Test Item Value Reference Range Interpretation Comments Lymphocytes # (test code = Lymphocytes 1.3 1.0-5.5 #) [facility] GrapevineSbvwubdUZXFBYCWGB0710-32-70 05:17:00 Test Item Value Reference Range Interpretation Comments Monocytes # (test code 0.7 See_Comment [Aut omated message] The = Monocytes #) system which generated this result tra nsmitted reference range : <=0.8. The reference r francheska was not used to int erpret this result as normal/abnormal . [facility] GrapevineCjoqfwoSKZSPSXGHM9117-71-07 05:17:00 Test Item Value Reference Range Interpretation Comments Eosinophils # (test code 0.2 See_Comment [A utomated message] The = Eosinophils #) system whic h generated this result tra nsmitted reference range : <=0.5. The reference r francheska was not used to int erpret this result as normal/abnormal . [facility] GrapevineEwismgzDUNTXNIJYP1971-68-78 05:17:00 Test Item Value Reference Range Interpretation Comments Segs-Bands # (test code = Segs-Bands #) 4.9 1.5-8.1 [facility]rapevineSkgqqlxQHXEYDBFWI0617-86-08 05:17:00 Test Item Value Reference Range Interpretation Comments Segs (test code = Segs) 68.0 45.0-75.0 [facility]rapevineQnwpxjxATHHZIPZIN4158-04-83 05:17:00 Test Item Value Reference Range Interpretation Comments Lymphocytes (test code = Lymphocytes) 18.2 20.0-40.0 [facility]rapevineKcwvzcxEAWWAZKUYG9337-48-26 05:17:00 Test Item Value Reference Range Interpretation Comments Monocytes (test code = Monocytes) 9.6 2.0-12.0 [facility]rapevineLhhnqshXKEWSFVGGQ9401-41-00 05:17:00 Test Item Value Reference Range Interpretation Comments Eosinophils (test code = 3.1 See_Comment [A utomated message] The Eosinophils) system which nerated this result tra nsmitted reference range : <=4.0. The reference r francheska was not used to int erpret this result as normal/abnormal . [facility] GrapevineTilwnuzLNMKLSNRVD0802-66-57 05:17:00 Test Item Value Reference Range Interpretation Comments Basophils (test code = 1.1 See_Comment [Aut omated message] The Basophils) system which nerated this result tra nsmitted reference range : <=1.0. The reference r francheska was not used to int erpret this result as normal/abnormal . [facility]2016-06-05 08:40:00 Test Item Value Reference Range Interpretation Comments Magnesium Lvl (test code = Magnesium 1.6 1.8-2.4 Lvl) [facility]2016-06-05 08:40:00 Test Item Value Reference Range Interpretation Comments Phosphorus (test code = Phosphorus) 3.4 2.5-4.5 [place]856-06-05 08:40:00 Test Item Value Reference Range Interpretation Comments Glucose Lvl (test code = Glucose Lvl) 141 70-99 [facility]2016-06-05 08:40:00 Test Item Value Reference Range Interpretation Comments BUN (test code = BUN) 9 7-22 [place] 401856-06-05 08:40:00 Test Item Value Reference Range Interpretation Comments Creatinine Lvl (test code = Creatinine 0.96 0.50-1.40 Lvl) [facility]2016-06-05 08:40:00 Test Item Value Reference Range Interpretation Comments eGFR (test code = eGFR) 99 [facility]2016-06-05 08:40:00 Test Item Value Reference Range Interpretation Comments CO2 (test code = CO2) 24 24-32 [facility]2016-06-05 08:40:00 Test Item Value Reference Range Interpretation Comments Calcium Lvl (test code = Calcium Lvl) 7.9 8.5-10.5 [facility]2016-06-05 08:40:00 Test Item Value Reference Range Interpretation Comments Sodium Lvl (test code = Sodium Lvl) 141 135-145 [facility]2016-06-05 08:40:00 Test Item Value Reference Range Interpretation Comments Potassium Lvl (test code = Potassium 3.5 3.5-5.1 Lvl) [place] 401856-06-05 08:40:00 Test Item Value Reference Range Interpretation Comments Chloride Lvl (test code = Chloride Lvl) 108 95-109 [facility]2016-06-05 08:40:00 Test Item Value Reference Range Interpretation Comments AGAP (test code = AGAP) 12.5 10.0-20.0 [facility]vineSrtprcmHJPIWSJXYV9564-37-63 08:40:00 Test Item Value Reference Range Interpretation Comments WBC (test code = WBC) 6.3 3.7-10.4 [facility]rapevineMbfwxijYRZBBJDWQT5469-81-72 08:40:00 Test Item Value Reference Range Interpretation Comments RBC (test code = RBC) 5.22 4.70-6.10 [facility] GrapevineKdgotisOQRFTBCAXR8967-35-06 08:40:00 Test Item Value Reference Range Interpretation Comments Hgb (test code = Hgb) 14.7 14.0-18.0 [facility] GrapevineRrcvddlSLZFBMRXYA8859-27-94 08:40:00 Test Item Value Reference Range Interpretation Comments MPV (test code = MPV) 8.3 7.4-10.4 [facility] GrapevineUtbheluOXBOZLFIIP9492-91-86 08:40:00 Test Item Value Reference Range Interpretation Comments RDW (test code = RDW) 13.2 11.5-14.5 [facility] GrapevineZubmiaxXYBAANDCIT1598-62-53 08:40:00 Test Item Value Reference Range Interpretation Comments Platelet (test code = Platelet) 293 133-450 [facility] GrapevineUhicemvTFRRJEFYSH5992-19-57 08:40:00 Test Item Value Reference Range Interpretation Comments Hct (test code = Hct) 44.9 42.0-54.0 [facility] GrapevineBiqfxueTZTFHSBNRT2371-52-91 08:40:00 Test Item Value Reference Range Interpretation Comments MCV (test code = MCV) 86.1 80.0-94.0 [facility] GrapevineXtvfiloRLGLPPTAUM1857-40-62 08:40:00 Test Item Value Reference Range Interpretation Comments MCHC (test code = MCHC) 32.8 32.0-36.0 [facility] GrapevineCkwhtpcHOSGEXSJCD7232-05-64 08:40:00 Test Item Value Reference Range Interpretation Comments MCH (test code = MCH) 28.2 pg 27.0-31.0 [facility] GrapevineQnconmcZFBXEENKHR0246-92-25 08:40:00 Test Item Value Reference Range Interpretation Comments Segs (test code = Segs) 67.5 45.0-75.0 [facility] GrapevineMkmilsiHPKZYATJYE9958-09-87 08:40:00 Test Item Value Reference Range Interpretation Comments Eosinophils (test code = 3.6 See_Comment [A utomated message] The Eosinophils) system which ge nerated this result tra nsmitted reference range : <=4.0. The reference r francheska was not used to int erpret this result as normal/abnormal . [facility] GrapevineJlhjwkcFOVIKQLYUS2110-51-19 08:40:00 Test Item Value Reference Range Interpretation Comments Lymphocytes (test code = Lymphocytes) 19.6 20.0-40.0 [facility] GrapevineDpjcewkTTJTVNYQXU4251-49-34 08:40:00 Test Item Value Reference Range Interpretation Comments Monocytes (test code = Monocytes) 8.5 2.0-12.0 [facility] GrapevineVlnqbkyBXJOETUGCN6043-03-44 08:40:00 Test Item Value Reference Range Interpretation Comments Basophils (test code = 0.8 See_Comment [Aut omated message] The Basophils) system which ge nerated this result tra nsmitted reference range : <=1.0. The reference r francheska was not used to int erpret this result as normal/abnormal . [facility] GrapevineZvbzewnQEMCWMOEUJ6046-88-88 08:40:00 Test Item Value Reference Range Interpretation Comments Segs-Bands # (test code = Segs-Bands #) 4.2 1.5-8.1 [facility] GrapevineVclzghxIHZVUDIMIL8367-57-81 08:40:00 Test Item Value Reference Range Interpretation Comments Monocytes # (test code 0.5 See_Comment [Aut omated message] The = Monocytes #) system which generated this result tra nsmitted reference range : <=0.8. The reference r francheska was not used to int erpret this result as normal/abnormal . [facility] GrapevineQdobojkBSLDGQTFRZ2460-69-64 08:40:00 Test Item Value Reference Range Interpretation Comments Eosinophils # (test code 0.2 See_Comment [A utomated message] The = Eosinophils #) system whic h generated this result tra nsmitted reference range : <=0.5. The reference r farncheska was not used to int erpret this result as normal/abnormal . [facility] GrapevineWwqyqizYWSFNSAISQ6032-89-18 08:40:00 Test Item Value Reference Range Interpretation Comments Lymphocytes # (test code = Lymphocytes 1.2 1.0-5.5 #) [facility] GrapevineShydemhEIJNCMRFBX3820-88-55 08:40:00 Test Item Value Reference Range Interpretation Comments PT (test code = PT) 15.1 s 12.0-14.7 [facility] GrapevineZkbzqfnZRSXLZIYKX0083-91-75 08:40:00 Test Item Value Reference Range Interpretation Comments INR (test code = INR) 1.16 0.85-1.17 [facility] FFXTT2310-45-68 06:45:00 Test Item Value Reference Range Interpretation Comments Phosphorus (test code = Phosphorus) 2.8 2.5-4.5 [facility]Lab[facility] JKLBM2961-87-25 06:45:00 Test Item Value Reference Range Interpretation Comments Magnesium Lvl (test code = Magnesium 1.5 1.8-2.4 Lvl) [facility] HealthGosdtjbSJKZVLOMSJGJ2372-25-44 06:45:00 Test Item Value Reference Range Interpretation Comments CO2 (test code = CO2) 21 24-32 [facility] HealthXdogzkwOKEWOPDKMVRP9792-04-61 06:45:00 Test Item Value Reference Range Interpretation Comments Potassium Lvl (test code = Potassium 3.2 3.5-5.1 Lvl) [facility] HealthWfdpwiaMRJCEOEKTEPD8647-87-25 06:45:00 Test Item Value Reference Range Interpretation Comments Chloride Lvl (test code = Chloride Lvl) 111 95-109 [facility] HealthQtlnrdvFWPXBOLSEEJP0567-08-55 06:45:00 Test Item Value Reference Range Interpretation Comments eGFR (test code = eGFR) 111 [facility] HealthAvaxdsoEMZYAXHPLEOP4882-94-19 06:45:00 Test Item Value Reference Range Interpretation Comments Calcium Lvl (test code = Calcium Lvl) 7.7 8.5-10.5 [facility] HealthYllohuyOKACBIBAIOIW6925-18-26 06:45:00 Test Item Value Reference Range Interpretation Comments Creatinine Lvl (test code = Creatinine 0.82 0.50-1.40 Lvl) [facility] HealthQrroidpTDSXFNSOPZXC8434-71-18 06:45:00 Test Item Value Reference Range Interpretation Comments Sodium Lvl (test code = Sodium Lvl) 142 135-145 [facility] HealthPnrsrssGTUKOOMRXNAW3890-62-47 06:45:00 Test Item Value Reference Range Interpretation Comments BUN (test code = BUN) 7 7-22 [facility] HealthTjaktpjSRLJUZYAGLGJ7031-17-56 06:45:00 Test Item Value Reference Range Interpretation Comments Glucose Lvl (test code = Glucose Lvl) 152 70-99 [facility] HealthCktgtvwIHILQGFKBSEJ7537-49-05 06:45:00 Test Item Value Reference Range Interpretation Comments AGAP (test code = AGAP) 13.2 10.0-20.0 [facility] GrapevineNbpynofTPLYWEIAOG1503-14-33 06:45:00 Test Item Value Reference Range Interpretation Comments RDW (test code = RDW) 13.3 11.5-14.5 [facility] GrapevineHvucyyqYCIMDTEMOR0815-19-96 06:45:00 Test Item Value Reference Range Interpretation Comments Platelet (test code = Platelet) 302 133-450 [facility] GrapevineVfljcpeQIZCXGJBUR6659-92-39 06:45:00 Test Item Value Reference Range Interpretation Comments MPV (test code = MPV) 8.4 7.4-10.4 [facility] GrapevineGsvbxhuYEFMTLRJGC3577-29-83 06:45:00 Test Item Value Reference Range Interpretation Comments MCHC (test code = MCHC) 32.0 32.0-36.0 [facility] GrapevineLxgbtqjOXPWJLOABT5715-97-11 06:45:00 Test Item Value Reference Range Interpretation Comments WBC (test code = WBC) 5.6 3.7-10.4 [facility] GrapevineFcxgyerGAWXMKPYGC1571-08-56 06:45:00 Test Item Value Reference Range Interpretation Comments Hgb (test code = Hgb) 14.3 14.0-18.0 [facility] GrapevinePamdqelTZIIKPVCFI3754-72-34 06:45:00 Test Item Value Reference Range Interpretation Comments Hct (test code = Hct) 44.6 42.0-54.0 [facility] GrapevineOdfxqdhJAGZOBQRAL5286-68-55 06:45:00 Test Item Value Reference Range Interpretation Comments MCV (test code = MCV) 87.0 80.0-94.0 [facility] GrapevineSgqrkosXZWKTWMFZU7911-49-03 06:45:00 Test Item Value Reference Range Interpretation Comments MCH (test code = MCH) 27.9 pg 27.0-31.0 [facility] GrapevineYaphpbuEESVMOMLKJ9383-24-37 06:45:00 Test Item Value Reference Range Interpretation Comments RBC (test code = RBC) 5.13 4.70-6.10 [facility] GrapevineAiwlkyoGMFFLSZCMF7649-15-79 06:45:00 Test Item Value Reference Range Interpretation Comments Basophils (test code = 0.9 See_Comment [Aut omated message] The Basophils) system which ge nerated this result tra nsmitted reference range : <=1.0. The reference r francheska was not used to int erpret this result as normal/abnormal . [facility] GrapevineSrwouqfVFHGDJFJIR4181-88-88 06:45:00 Test Item Value Reference Range Interpretation Comments Segs-Bands # (test code = Segs-Bands #) 3.8 1.5-8.1 [facility] GrapevineNtbhgzmRRLABXHFVH8611-14-56 06:45:00 Test Item Value Reference Range Interpretation Comments Monocytes # (test code 0.6 See_Comment [Aut omated message] The = Monocytes #) system which generated this result tra nsmitted reference range : <=0.8. The reference r francheska was not used to int erpret this result as normal/abnormal . [facility] GrapevineGlhklezOCQNPBNMNX9095-96-52 06:45:00 Test Item Value Reference Range Interpretation Comments Lymphocytes # (test code = Lymphocytes 1.1 1.0-5.5 #) [facility] GrapevineDxfjjqvLZIINETHBQ3073-81-01 06:45:00 Test Item Value Reference Range Interpretation Comments Eosinophils (test code = 3.3 See_Comment [A utomated message] The Eosinophils) system which ge nerated this result tra nsmitted reference range : <=4.0. The reference r francheska was not used to int erpret this result as normal/abnormal . [facility] GrapevineEscduliDEDKOCMVAJ6701-04-17 06:45:00 Test Item Value Reference Range Interpretation Comments Eosinophils # (test code 0.2 See_Comment [A utomated message] The = Eosinophils #) system whic h generated this result tra nsmitted reference range : <=0.5. The reference r francheska was not used to int erpret this result as normal/abnormal . [facility] GrapevineBrtakzvEQJROIKMRP1962-32-43 06:45:00 Test Item Value Reference Range Interpretation Comments Basophils # (test code 0.1 See_Comment [Aut omated message] The = Basophils #) system which generated this result tra nsmitted reference range : <=0.2. The reference r francheska was not used to int erpret this result as normal/abnormal . [facility] GrapevineBvuoaxlFYFFLUVSQD2217-23-23 06:45:00 Test Item Value Reference Range Interpretation Comments Monocytes (test code = Monocytes) 9.8 2.0-12.0 [facility] GrapevineZgunpmiOMRIEMDYSD9850-78-34 06:45:00 Test Item Value Reference Range Interpretation Comments Segs (test code = Segs) 67.2 45.0-75.0 [facility] GrapevineNdalvwyWRLAIQRKDH6875-49-69 06:45:00 Test Item Value Reference Range Interpretation Comments Lymphocytes (test code = Lymphocytes) 18.8 20.0-40.0 [facility] GrapevineFljdnuaIMLIWJASOA7325-56-79 06:45:00 Test Item Value Reference Range Interpretation Comments INR (test code = INR) 1.03 0.85-1.17 [facility] GrapevineZzixjdiAWTJVDWSJV8596-85-45 06:45:00 Test Item Value Reference Range Interpretation Comments PT (test code = PT) 13.8 s 12.0-14.7 [facility] GrapevinePuqhtozPLGSEGTBLV6385-48-78 21:25:00 Test Item Value Reference Range Interpretation Comments PTT (test code = PTT) 52.0 s 22.9-35.8 [facility] GrapevineLhrqlyhBWLMTJXZVT8216-50-28 21:25:00 Test Item Value Reference Range Interpretation Comments PTT (test code = PTT) 54.0 s 22.9-35.8 [facility]AbhurazXPYZYHGWFK7404-04-43 21:25:00 Test Item Value Reference Range Interpretation Comments Cardiolipin IgG (test code = no gt Cardiolipin IgG) [facility]FgeaaaaGIHCDPUSYE7367-90-56 21:25:00 Test Item Value Reference Range Interpretation Comments Cardiolipin IgM (test code = 0.2 Cardiolipin IgM) [facility] CenterLcpubrpESXGUASZXK0077-21-05 21:25:00 Test Item Value Reference Range Interpretation Comments Cardiolipin IgA (test code = no gt Cardiolipin IgA) [facility] GrapevineOvzicnpVJUIBZKWMS5190-36-00 12:08:00 Test Item Value Reference Range Interpretation Comments Basophils # (test code 0.1 See_Comment [Aut omated message] The = Basophils #) system which generated this result tra nsmitted reference range : <=0.2. The reference r francheska was not used to int erpret this result as normal/abnormal . [facility] GrapevineQuehtmgFSZEBTXNHP3845-26-12 12:08:00 Test Item Value Reference Range Interpretation Comments PTT (test code = PTT) 50.7 s 22.9-35.8 [facility] [id number] 12:08:00 Test Item Value Reference Range Interpretation Comments SS-A (Ro) Ab (test code = SS-A (Ro) Ab) no gt [facility] Cent[id number] 12:08:00 Test Item Value Reference Range Interpretation Comments SS-B (La) Ab (test code = SS-B (La) Ab) no gt [facility] C[id number] 12:08:00 Test Item Value Reference Range Interpretation Comments C-REACTIVE PROTEIN (test code = 51.2 C-REACTIVE PROTEIN) [facility] Cent[id number] 12:08:00 Test Item Value Reference Range Interpretation Comments DNA Ab (DS) (test Negative (09/30/15 7:08 code = DNA Ab (DS)) AM) [facility]vineZhtvihkPBTYNIVJCM8611-99-34 04:35:00 Test Item Value Reference Range Interpretation Comments Fibrinogen Lvl (test code = Fibrinogen 460 230-510 Lvl) [facility] Gra[id number] 04:35:00 Test Item Value Reference Range Interpretation Comments Sed Rate (test code = 10 See_Comment [Auto mated message] The Sed Rate) system which ge nerated this result transmit gabriel reference range : <=15. The reference range was not used to interpr et this result as jose angel l/abnormal. [facility] [id number] 04:35:00 Test Item Value Reference Range Interpretation Comments Factor VIII (test code = Factor VIII) 238 50-242 [facility]utaaxGDFBTNRPEX6797-01-35 04:35:00 Test Item Value Reference Range Interpretation Comments C4 Complement (test code = C4 31 16-47 Complement) [facility]iscoJyzbgogBRJYSQMVMD4924-01-46 04:35:00 Test Item Value Reference Range Interpretation Comments C3 Complement (test code = C3 119 88-201 Complement) [facility]is[id number] 04:35:00 Test Item Value Reference Range Interpretation Comments SANJUANITA (test code = SANJUANITA) Negative (09/29/15 11:35 PM) [facility] [id number] 04:35:00 Test Item Value Reference Range Interpretation Comments NICKI (test code = INCKI) 49 8-52 [facility] AND [id number] 10:47:00 Test Item Value Reference Range Interpretation Comments UA Sq Epi (test code = UA Sq Epi) None Seen [facility] AND [id number] 10:47:00 Test Item Value Reference Range Interpretation Comments UA pH (test code = UA pH) 6.0 5.0-8.0 [facility] [id number] 10:47:00 Test Item Value Reference Range Interpretation Comments UA Spec Grav (test code = UA Spec Grav) 1.030 [facility] AND [id number] 10:47:00 Test Item Value Reference Range Interpretation Comments UA Turbidity (test code = Clear (09/29/15 5:47 UA Turbidity) AM) [facility] [id number] 10:47:00 Test Item Value Reference Range Interpretation Comments UA Protein (test code = UA Protein) 20 mg/dL [facility] [id number] 10:47:00 Test Item Value Reference Range Interpretation Comments UA Color (test code = Yellow *NA*(09/29/15 5:47 UA Color) AM) [facility] [id number] 10:47:00 Test Item Value Reference Range Interpretation Comments UA Bacteria (test code = UA Occasional /HPF Bacteria) [facility] [id number] 10:47:00 Test Item Value Reference Range Interpretation Comments UA RBC (test code = 33 See_Comment [Automa gabriel message] The UA RBC) system which ge nerated this result transmit gabriel reference range : <=2. The reference range was not used to interpr et this result as jose angel l/abnormal. [facility] AND [id number] 10:47:00 Test Item Value Reference Range Interpretation Comments UA WBC (test code = 6 See_Comment [Automa gabriel message] The UA WBC) system which ge nerated this result transmit gabriel reference range : <=5. The reference range was not used to interpr et this result as jose angel l/abnormal. [facility] AND [id number] 10:47:00 Test Item Value Reference Range Interpretation Comments UA Mucus (test code = UA Mucus) Few /LPF [facility] AND [id number] 10:47:00 Test Item Value Reference Range Interpretation Comments UA Bili (test code = Negative *NA*(09/29/15 UA Bili) 5:47 AM) [facility] AND [id number] 10:47:00 Test Item Value Reference Range Interpretation Comments UA Ketones (test code = UA Ketones) 100 mg/dL [facility] AND [id number] 10:47:00 Test Item Value Reference Range Interpretation Comments UA Leuk Est (test Negative (09/29/15 5:47 code = UA Leuk Est) AM) [facility] AND [id number] 10:47:00 Test Item Value Reference Range Interpretation Comments UA Nitrite (test code Negative (09/29/15 5:47 = UA Nitrite) AM) [facility] AND [id number] 10:47:00 Test Item Value Reference Range Interpretation Comments UA Urobilinogen (test code = UA 2.0 0.1-1.0 Urobilinogen) [facility] AND [id number] 10:47:00 Test Item Value Reference Range Interpretation Comments UA Blood (test code = Small *ABN*(09/29/15 UA Blood) 5:47 AM) [facility] AND [id number] 10:47:00 Test Item Value Reference Range Interpretation Comments UA Glucose (test code = UA >=1000 mg/dL Glucose) [facility] AND [id number] 10:47:00 Test Item Value Reference Range Interpretation Comments UA Hyal Cast (test 1 See_Comment [Automat ed message] The code = UA Hyal Cast) system which generated this result transmit gabriel reference range : <=2. The reference range was not used to interpr et this result as jose angel l/abnormal. [facility]2016-06-02 01:10:00 Test Item Value Reference Range Interpretation Comments Lactic Acid Lvl (test code = Lactic 1.0 0.5-2.2 Acid Lvl) [facility] [id number] 07:12:00 Test Item Value Reference Range Interpretation Comments Total CK (test code = Total CK) 3152 12-191 [facility] [id number] 07:12:00 Test Item Value Reference Range Interpretation Comments Troponin-T (test code no gt See_Comment [Auto mated message] The = Troponin-T) system which g enerated this result transmit gabriel reference range : <=0.100. The reference r francheska was not used to interpr et this result as jose angel l/abnormal. [facility]2016-06-01 07:12:00 Test Item Value Reference Range Interpretation Comments Troponin-I (test code no gt See_Comment [Auto mated message] The = Troponin-I) system which g enerated this result transmit gabriel reference range : <=0.40. The reference r francheska was not used to interpr et this result as jose angel l/abnormal. [facility]2016-05-31 16:01:00 Test Item Value Reference Range Interpretation Comments Bili Indirect (test 0.5 See_Comment [Automa gabriel message] The code = Bili Indirect) system which generated this result tra nsmitted reference range : <=1.0. The reference r francheska was not used to int erpret this result as normal/abnormal . [facility]2016-05-31 16:01:00 Test Item Value Reference Range Interpretation Comments Bili Direct (test code 0.1 See_Comment [Aut omated message] The = Bili Direct) system which generated this result tra nsmitted reference range : <=0.3. The reference r francheska was not used to int erpret this result as jose angel l/abnormal. [facility]2016-05-31 16:01:00 Test Item Value Reference Range Interpretation Comments Bili Total (test code = Bili Total) 0.6 0.2-1.3 [facility]2016-05-31 16:01:00 Test Item Value Reference Range Interpretation Comments AST (test code = AST) 70 See_Comment [Auto mated message] The system which ge nerated this result transmit gabriel reference range : <=37. The reference range was not used to interpr et this result as jose angel l/abnormal. [facility]2016-05-31 16:01:00 Test Item Value Reference Range Interpretation Comments ALT (test code = ALT) 48 See_Comment [Auto mated message] The system which ge nerated this result transmit gabriel reference range : <=65. The reference range was not used to interpr et this result as jose angel l/abnormal. [facility]2016-05-31 16:01:00 Test Item Value Reference Range Interpretation Comments A/G Ratio (test code = A/G Ratio) 1.1 0.7-1.6 [facility]2016-05-31 16:01:00 Test Item Value Reference Range Interpretation Comments Globulin (test code = Globulin) 3.5 2.0-4.0 [facility]2016-05-31 16:01:00 Test Item Value Reference Range Interpretation Comments Albumin Lvl (test code = Albumin Lvl) 3.7 3.5-5.0 [facility]2016-05-31 16:01:00 Test Item Value Reference Range Interpretation Comments Total Protein (test code = Total 7.2 6.4-8.4 Protein) [facility]2016-05-31 16:01:00 Test Item Value Reference Range Interpretation Comments Alk Phos (test code = Alk Phos) 77 39-136 [facility] [id number] 16:01:00 Test Item Value Reference Range Interpretation Comments Treponemal Scr (test Non Reactive code = Treponemal Scr) *NA*(09/27/15 11:01 AM) [id number] 16:01:00 Test Item Value Reference Range Interpretation Comments VLDL (test code = VLDL) 39 [facility] [id number] 16:01:00 Test Item Value Reference Range Interpretation Comments LDL (Calculated) (test code = LDL 169 (Calculated)) [facility] [id number] 16:01:00 Test Item Value Reference Range Interpretation Comments HDL (test code = HDL) 36 [facility] SouthKcliemnVKMAHF7863-01-31 16:01:00 Test Item Value Reference Range Interpretation Comments Chol (test code = Chol) 244 [facility]GyvudstRLXZVS8833-12-14 16:01:00 Test Item Value Reference Range Interpretation Comments Trig (test code = Trig) 197 [facility] [id number] 16:01:00 Test Item Value Reference Range Interpretation Comments CHD Risk (test code = CHD Risk) 6.78 4.00-7.30 [facility] [id number] 16:01:00 Test Item Value Reference Range Interpretation Comments Hgb A1C (test code = Hgb A1C) 10.0 [facility] AND [id number] 16:01:00 Test Item Value Reference Range Interpretation Comments UA Ketones (test code = UA Ketones) 15 mg/dL [facility] AND [id number] 16:01:00 Test Item Value Reference Range Interpretation Comments UA Glucose (test code = UA >=1000 mg/dL Glucose) [facility] AND [id number] 16:01:00 Test Item Value Reference Range Interpretation Comments UA Bili (test code = Negative *NA*(09/27/15 UA Bili) 11:01 AM) [facility] AND [id number] 16:01:00 Test Item Value Reference Range Interpretation Comments UA Protein (test code Negative (09/27/15 11:01 = UA Protein) AM) [facility] AND [id number] 16:01:00 Test Item Value Reference Range Interpretation Comments UA Spec Grav (test code = UA Spec 1.015 1 Grav) [facility] AND [id number] 16:01:00 Test Item Value Reference Range Interpretation Comments UA pH (test code = UA pH) 5.5 1 5.0-8.0 [facility] AND [id number] 16:01:00 Test Item Value Reference Range Interpretation Comments UA Turbidity (test code Slight Cloudy = UA Turbidity) (09/27/15 11:01 AM) [facility] [id number] 16:01:00 Test Item Value Reference Range Interpretation Comments UA Color (test code = Yellow *NA*(09/27/15 UA Color) 11:01 AM) [facility] [id number] 16:01:00 Test Item Value Reference Range Interpretation Comments UA Blood (test code = Large *ABN*(09/27/15 UA Blood) 11:01 AM) [facility] [id number] 16:01:00 Test Item Value Reference Range Interpretation Comments UA Urobilinogen (test code = UA 0.2 0.1-1.0 Urobilinogen) [facility] [id number] 16:01:00 Test Item Value Reference Range Interpretation Comments UA Leuk Est (test Negative (09/27/15 11:01 code = UA Leuk Est) AM) [facility] [id number] 16:01:00 Test Item Value Reference Range Interpretation Comments UA Nitrite (test code Negative (09/27/15 11:01 = UA Nitrite) AM) [facility] [id number] 16:01:00 Test Item Value Reference Range Interpretation Comments UA WBC (test code = UA None Seen (09/27/15 WBC) 11:01 AM) [facility] [id number] 16:01:00 Test Item Value Reference Range Interpretation Comments UA RBC (test code 21-50 /HPF See_Comment [Automate d message] The = UA RBC) system which ge nerated this result tra nsmitted reference range : <=2. The reference range was not used to interpr et this result as normal/abnormal . [facility] [id number] 16:01:00 Test Item Value Reference Range Interpretation Comments UA Bacteria (test code = None Seen (09/27/15 UA Bacteria) 11:01 AM) [facility] [id number] 16:01:00 Test Item Value Reference Range Interpretation Comments UA CaOx Christie (test code = UA CaOx Many /HPF Christie) [facility] [id number] 16:01:00 Test Item Value Reference Range Interpretation Comments UA Sq Epi (test code = None Seen (09/27/15 UA Sq Epi) 11:01 AM) [facility]2016-05-31 15:09:51 Test Item Value Reference Range Interpretation Comments Lactic Acid Lvl (test code = Lactic 1.2 0.5-2.2 Acid Lvl) [facility]TmiozeyGMFUWFRIBX2810-46-05 15:09:51 Test Item Value Reference Range Interpretation Comments Etoh (%) (test code = Etoh (%)) <0.003 % [place] [id number] 15:09:51 Test Item Value Reference Range Interpretation Comments Ethanol Lvl (test code = Ethanol <3.0 mg/dL Lvl) [facility] AND [id number] 14:27:21 Test Item Value Reference Range Interpretation Comments UA Leuk Est (test Negative (09/27/15 9:27 code = UA Leuk Est) AM) [facility] AND [id number] 14:27:21 Test Item Value Reference Range Interpretation Comments UA Nitrite (test code Negative (09/27/15 9:27 = UA Nitrite) AM) [facility] AND [id number] 14:27:21 Test Item Value Reference Range Interpretation Comments UA Blood (test code = Moderate *ABN*(09/27/15 UA Blood) 9:27 AM) [facility] AND [id number] 14:27:21 Test Item Value Reference Range Interpretation Comments UA Urobilinogen (test code = UA 0.2 0.1-1.0 Urobilinogen) [facility] AND [id number] 14:27:21 Test Item Value Reference Range Interpretation Comments UA Glucose (test code = UA Glucose) 500 mg/dL [facility] AND [id number] 14:27:21 Test Item Value Reference Range Interpretation Comments UA Ketones (test code = UA Ketones) 40 mg/dL [facility] AND [id number] 14:27:21 Test Item Value Reference Range Interpretation Comments UA Bili (test code = Negative *NA*(09/27/15 UA Bili) 9:27 AM) [facility] AND [id number] 14:27:21 Test Item Value Reference Range Interpretation Comments UA Turbidity (test code = Clear (09/27/15 9:27 UA Turbidity) AM) [facility] AND [id number] 14:27:21 Test Item Value Reference Range Interpretation Comments UA pH (test code = UA pH) 5.0 1 5.0-8.0 [facility] [id number] 14:27:21 Test Item Value Reference Range Interpretation Comments UA Protein (test code Negative (09/27/15 9:27 = UA Protein) AM) [facility] [id number] 14:27:21 Test Item Value Reference Range Interpretation Comments UA Spec Grav (test code = UA Spec 1.010 1 Grav) [facility] [id number] 14:27:21 Test Item Value Reference Range Interpretation Comments UA Color (test code = Yellow *NA*(09/27/15 UA Color) 9:27 AM) [facility] [id number] 14:27:21 Test Item Value Reference Range Interpretation Comments Micro? (test code = Performed (09/27/15 9:27 Micro?) AM) [facility] [id number] 14:27:21 Test Item Value Reference Range Interpretation Comments UA WBC (test code = UA WBC) 0-2 /HPF [facility] [id number] 14:27:21 Test Item Value Reference Range Interpretation Comments UA Sq Epi (test code = UA Sq Epi) Rare /LPF [facility] [id number] 14:27:21 Test Item Value Reference Range Interpretation Comments UA Bacteria (test code = UA Few /HPF Bacteria) [facility] [id number] 14:27:21 Test Item Value Reference Range Interpretation Comments UA Tr Phos Christie (test code = UA Moderate /HPF Tr Phos Christie) [facility] [id number] 14:27:21 Test Item Value Reference Range Interpretation Comments UA RBC (test code = 3-5 /HPF See_Comment [Automa gabriel message] The UA RBC) system which ge nerated this result tra nsmitted reference range : <=2. The reference range was not used to interpr et this result as jose angel l/abnormal. [facility] [id number] 13:16:37 Test Item Value Reference Range Interpretation Comments CK MB Index (test 0.4 See_Comment [Automate d message] The code = CK MB Index) system w hich generated this result transmit gabriel reference range : <=2.5. The reference range was not used to interpr et this result as jose angel l/abnormal. [facility] FriscoFanaticsCARRösler miniDaTAC [id number] 13:16:37 Test Item Value Reference Range Interpretation Comments Total CK (test code = Total CK) 2730 12-191 [facility]Cahoot[facility] LimitedM[facility] [id number] 13:16:37 Test Item Value Reference Range Interpretation Comments Troponin-I (test code no gt See_Comment [Auto mated message] The = Troponin-I) system which g enerated this result transmit gabriel reference range : <=0.40. The reference r francheska was not used to interpr et this result as jose angel l/abnormal. [facility] [employer] [id number] 13:16:37 Test Item Value Reference Range Interpretation Comments CK MB (test code = CK MB) 11.0 0.5-3.6 [facility] SouthCHEM [id number] 13:16:00 Test Item Value Reference Range Interpretation Comments POC Creatinine (test code = POC 1.2 0.5-1.4 Creatinine) [facility]
[2022-05-09] MEDS ORDERED: LIDOCAINE 1% MPF 5 ML VIAL ONE (22:11)
[2022-05-09 22:18] LABS: Absolute Lymphocytes (CBC) 1.8 K/uL (0.7-4.9); Hematocrit 39.7 % (39.6-49.0); Lymphocytes % 17.5 % (15.3-44.8); MCV 85.2 fL (80-100); MPV 7.2 fL (7.6-11.3); RBC Red Blood Cell Count 4.66 M/uL (4.33-5.43)
--- NOTE | 2022-05-09 22:51 | RAD REPORT ---
EXAM DESCRIPTION: CT - Head C Spine Cap Taina Cedillo - 05/09/2022 10:39 pm CLINICAL HISTORY: Trauma, head and neck injury. Chest, abdomen and pelvis pain. Fall injury, headache, low back pain COMPARISON: Brain Wo Cont dated 06/16/2018 TECHNIQUE: CT head without contrast. CT cervical spine without contrast with coronal and sagittal reformatted images. CT chest, abdomen and pelvis with coronal and sagittal reformatted images of the spine. All CT scans are performed using dose optimization technique as appropriate and may include automated exposure control or mA/KV adjustment according to patient size. FINDINGS: CT HEAD WITHOUT CONTRAST: No intracranial hemorrhage, hydrocephalus or extra-axial fluid collection. No acute large vascular te rritory infarct. Multiple remote left MCA territory infarcts including at the left frontal lobe and l eft parietal lobes. The paranasal sinuses and mastoids are clear. The calvarium is intact. Left parietal scalp hematoma. CT CERVICAL SPINE WITHOUT CONTRAST: No fracture or subluxation. The prevertebral soft tissues are normal in thickness.Mild multilevel cervical spondylosis with endpl ate sclerosis and mild disc height loss at C5-6 and C6-7. Mild neural foraminal narrowing is present at both of these levels. CT CHEST, ABDOMEN, PELVIS: Thorax: Chest Wall: No abnormal mass Lungs: No acute abnormality. Pleura: No effusions or pneumothorax. Fabiola/Mediastinum: No lymphadenopathy. Aorta/Pulmonary Arteries: Unremarkable Heart: Normal size. Abdomen/Pelvis: Liver: No acute abnormality or suspicious lesions. Biliary: No biliary ductal dilatation. Stomach: No significant focal abnormality. Duodenum: No significant focal abnormality. Pancreas: No significant abnormality. Spleen: No significant abnormality. Adrenal: No suspicious lesions. Kidney/ureter: No hydronephrosis. Horseshoe kidney. Retroperitoneum: No retroperitoneal adenopathy. Vascular: No aneurysm. Bowel: No significant focal abnormality. Peritoneum: No ascites or free air. Bladder: Grossly unremarkable. Reproductive: No adnexal masses. Bones: Moderate disc height loss endplate sclerosis of L5-S1. No fractures identified. Other: n/a IMPRESSION: 1. No acute intracranial abnormality. Sequela of remote left MCA territory infarct. No s kull fracture. 2. No acute fracture traumatic malalignment cervical spine. 3. No evidence of significant trauma to the chest, abdomen, or pelvis .
[2022-05-09] MEDS ORDERED: ONDANSETRON 4 MG/2 ML VIAL ONE (23:30)
[2022-05-09] MEDS ORDERED: MORPHINE 4 MG/ML SYR ONE (23:30)
--- NOTE | 2022-05-10 00:04 | EDPHYS ---
Physician Documentation [facility] Name: Kris Lebron Age: 46 yrs Sex: Male : 1975 Arrival Date: 05/09/2022 Time: 21:50 Bed 16 Private MD: ED Physician Erich Goddard HPI: 05/09 21:53 This 46 yrs old Male presents to ER via EMS with complaints of Fall Injury. pm1 21:53 Trauma demographics: Location of Injury: The injury occurred at home. Mechanism of pm1 injury: Fall: approximately 8-10 feet, and struck a concrete surface. Associated injuries: The patient sustained injury to the head, laceration, of the left occipital area, pain, injury to the low back, pain. Onset: The symptoms/episode began/occurred just prior to arrival. The patient has not experienced similar symptoms in the past. The patient has not recently seen a physician. Patient was putting up [place] decorations in the attic and garage and fell down approximately 8 to 10 feet. Patient presenting with laceration to back of his head and low back pain. Patient uncertain of how he fell because he woke up on the floor of the garage. Historical: - Allergies: 21:54 No Known Allergies; mb9 - Home Meds: 21:54 Plavix Oral [Active]; mb9 - PMHx: 21:54 GERD; Hypertension; Cerebrovascular accident; x2; Diabetes mellitus; Seizure; mb9 - PSHx: 21:54 Appendectomy; mb9 - Immunization history:: Adult Immunizations up to date. - Social history:: Smoking status: Patient denies any tobacco usage or history of. - Immunization history: Last tetanus immunization: - up to date. ROS: 21:53 Constitutional: Negative for fever, chills, and weight loss, Neck: Negative for injury, pm1 pain, and swelling, Cardiovascular: Negative for chest pain, palpitations, and edema, Respiratory: Negative for shortness of breath, cough, wheezing, and pleuritic chest pain, Abdomen/GI: Negative for abdominal pain, nausea, vomiting, diarrhea, and constipation. 21:53 MS/Extremity: Negative for injury and deformity, Skin: Negative for injury, rash, and discoloration. 21:53 Back: Positive for of the low back area pain near sacral area. 21:53 Neuro: Positive for headache, Negative for numbness, weakness. 21:53 All other systems are negative. Exam: 21:53 Constitutional: This is a well developed, well nourished patient who is awake, alert, pm1 and in no acute distress. 21:53 Skin: Warm, dry with normal turgor. Normal color with no rashes, no lesions, and no evidence of cellulitis. MS/ Extremity: Pulses equal, no cyanosis. Neurovascular intact. Full, normal range of motion. 21:53 Head/face: Noted is no obvious of injury or deformity except a laceration(s), 3 cm(s), of the left occipital area. 21:53 Eyes: Exam is negative for acute changes, Extraocular movements: no acute changes, Conjunctiva: no acute changes, no injection. 21:53 ENT: Exam is negative for acute changes, Ear canal(s): no acute changes, TM's: no acute changes, Mouth: no acute changes, Lips: normal, moist, Oral mucosa: normal, pink and intact, moist. 21:53 Neck: Exam negative for acute changes, ROM/movement: no acute changes. 21:53 Chest/axilla: Inspection: no acute changes, Palpation: no acute changes, tenderness, is not appreciated. 21:53 Cardiovascular: Exam negative for acute changes, Rate: normal, Rhythm: regular, Pulses: no pulse deficits are appreciated. 21:53 Respiratory: Exam negative for acute changes, respiratory distress, shortness of breath. 21:53 Abdomen/GI: Exam negative for acute changes, Inspection: abdomen appears normal, Palpation: abdomen is soft and non-tender, in all quadrants. 21:53 Back: vertebral tenderness, is appreciated at sacrum mild. 21:53 Neuro: Exam negative for acute changes, Orientation: is normal, Mentation: is normal, Motor: moves all fours. Vital Signs: 21:50 BP 138 / 70; Pulse 85; Resp 18; Temp 98.2; Pulse Ox 96% on R/A; Weight 92.99 kg; Height mb9 5 ft. 8 in. (172.72 cm); Pain 0/10; 21:58 BP 142 / 94; Pulse 78; Resp 18; Pulse Ox 100% on R/A; Pain 0/10; mb9 22:48 BP 140 / 92; Pulse 75; Resp 17; Pulse Ox 100% ; mb9 23:34 BP 136 / 69; Pulse 72; Resp 22; Pulse Ox 99% on R/A; mb9 12 00:07 BP 130 / 65; Pulse 77; Resp 18; Pulse Ox 100% on R/A; mb9 00:40 BP 112 / 49; Pulse 82; Resp 17; Pulse Ox 97% ; jj7 05/09 21:50 Body Mass Index 31.17 (92.99 kg, 172.72 cm) mb9 Slime Coma Score: 05/09 21:58 Eye Response: spontaneous(4). Verbal Response: oriented(5). Motor Response: obeys mb9 commands(6). Total: 15. 22:48 Eye Response: spontaneous(4). Verbal Response: oriented(5). Motor Response: obeys mb9 commands(6). Total: 15. 23:34 Eye Response: spontaneous(4). Verbal Response: oriented(5). Motor Response: obeys mb9 commands(6). Total: 15. 05/10 00:07 Eye Response: spontaneous(4). Verbal Response: oriented(5). Motor Response: obeys mb9 commands(6). Total: 15. Trauma Score (Adult): 05/09 21:58 Eye Response: spontaneous(1); Verbal Response: oriented(1); Motor Response: obeys mb9 commands(2); Systolic BP: > 89 mm Hg(4); Respiratory Rate: 10 to 29 per min(4); Baxter Score: 15; Trauma Score: 12 Laceration: 05/10 00:01 Wound Repair of 3cm ( 1.2in ) subcutaneous laceration to left parietal area. Linear pm1 shaped.. Distal neuro/vascular/tendon intact. Anesthesia: Local anesthetic administered with 4 mls of 1% lidocaine. Wound prep: Extensive cleansing with hibiclenz by me, Wound irrigation with saline by me, Wound explored extensively, Copious irrigation. Skin closed with 5 1-0 Ashley using staple gun. Dressed with 4x4's. Patient tolerated well. MDM: 05/09 21:51 Patient medically screened. pm1 05/10 00:00 Differential diagnosis: intra-abdominal injury, closed head injury, C spine fracture, T pm1 spine fracture, L spine fracture. 00:00 Care significantly affected by the following chronic conditions: CVA and seizure pm1 history. Patient is on blood thinners. 00:01 Data reviewed: vital signs. pm1 00:06 Counseling: I had a detailed discussion with the patient and/or guardian regarding: the pm1 historical points, exam findings, and any diagnostic results supporting the discharge/admit diagnosis, lab results, radiology results, the need for outpatient follow up, to return to the emergency department if symptoms worsen or persist or if there are any questions or concerns that arise at home. 05/09 21:52 Order name: Basic Metabolic Panel; Complete Time: 22:35 pm1 05/09 21:52 Order name: CBC with Diff; Complete Time: 22:35 pm1 05/09 21:52 Order name: Type And Screen; Complete Time: 23:45 pm1 05/09 21:52 Order name: CT Traumagram (Head C Spine CAP W Con); Complete Time: 23:02 pm1 05/09 23:59 Order name: CREATININE WHOLE BLOOD; Complete Time: 00:01 EDRI 05/09 21:53 Order name: Labs collected and sent; Complete Time: 22:26 pm1 05/09 21:53 Order name: Dressing - Wound; Complete Time: 00:07 pm1 05/09 21:53 Order name: Gloves, Sterile; Complete Time: 22:21 pm1 05/09 21:53 Order name: Prolene, Sutures; Complete Time: 22:21 pm1 05/09 21:53 Order name: Setup Suture Tray; Complete Time: 22:22 pm1 05/09 21:59 Order name: IV Saline Lock; Complete Time: 22:21 mb9 Administered Medications: 05/09 22:00 Not Given (Other Intervention Used; pt received 1 month agoo): Tetanus-Diphtheria mb9 Toxoid Adult 0.5 ml IM once; Provide Vaccine Information Statement (VIS). 23:28 Drug: Zofran (Ondansetron) 4 mg Route: IVP; Site: right antecubital; mb9 23:55 Follow up: Response: No adverse reaction mb9 23:33 Drug: morphine 4 mg Route: IVP; Infused Over: 4 mins; Site: right antecubital; mb9 23:55 Follow up: Response: No adverse reaction mb9 23:56 Drug: Lidocaine (1 %) 5 ml Volume: 5 ml; Route: Infiltration; mb9 23:56 Follow up: Response: No adverse reaction 9 05/10 00:43 Drug: morphine 4 mg Route: IVP; Infused Over: 4 mins; Site: right antecubital; jj7 01:16 Follow up: Response: Pain is unchanged, physician notified j 00:52 Drug: Phenergan (promethazine) 25 mg Route: IM; Site: right vastus lateralis; j7 01:16 Follow up: Response: Nausea is decreased j 01:13 Drug: Flexeril (cyclobenzaprine) 10 mg Route: PO; 7 01:17 Follow up: Response: No adverse reaction 7 Disposition: 03:09 Co-signature as Attending Physician, Erich Goddard MD I reviewed the patient's care rn provided by the Advanced Practice Provider and agree with the diagnosis and treatment plan. Disposition Summary: 05/10/22 00:03 Discharge Ordered Location: Home pm1 Problem: new pm1 Symptoms: have improved pm1 Condition: Stable pm1 Diagnosis - Fall (on) (from) other stairs and steps pm1 - Laceration without foreign body of scalp pm1 - Low back pain pm1 Followup: pm1 - With: Emergency Department - When: As needed - Reason: Worsening of condition Followup: pm1 - With: Private Physician - When: 10 - 14 days - Reason: Recheck today's complaints, Continuance of care, Staple/Suture removal, Re-evaluation by your physician Discharge Instructions: - Discharge Summary Sheet pm1 - Acute Back Pain, Adult pm1 - Head Injury, Adult pm1 - Laceration Care, Adult pm1 - Fall Prevention in the Home, Adult pm1 Forms: - Medication Reconciliation Form pm1 - Thank You Letter pm1 - Antibiotic Education pm1 - Prescription Opioid Use pm1 Prescriptions: - Cephalexin 500 mg Oral Capsule - take 1 capsule by ORAL route every 12 hours for 10 days; 20 capsule; Refills: pm1 0, Product Selection Permitted - Tylenol-Codeine #3 300 mg-30 mg Oral - take 2 tablet by ORAL route every 6 hours As needed; 20 tablet; Refills: 0, pm1 Product Selection Permitted Signatures: Dispatcher [employer] EDRI Erich Goddard MD MD rn Marinas, Patrick, IKE MASONRY INSPECTOR pm1 Beatriz Winter RN RN jj7 Alberta Landrum RN RN mb9 Corrections: (The following items were deleted from the chart) 05/09 21:55 21:54 PMHx: Cerebrovascular accident; mb9 mb9
--- NOTE | 2022-05-10 00:04 | ER ---
Nurse's Notes [facility] Name: Kris Lberon Age: 46 yrs Sex: Male : 1975 Arrival Date: 05/09/2022 Time: 21:50 Bed 16 Private MD: Diagnosis: Fall (on) (from) other stairs and steps;Laceration without foreign body of scalp;Low back pain Presentation: 05/09 21:50 Chief complaint: EMS states: pt was putting up [place] decor in the attic and fell mb9 from 8-10 ft. Fall was unwitnessed and pt doesn't know if any LOC occurred. found pt on ground. Pt has 2 inch laceration to back of scalp and complains of SOB, head, and lower back pain. C-collar in place. Pt currently on Plavix. Coronavirus screen: Vaccine status: Patient reports receiving the 2nd dose of the covid vaccine. Ebola Screen: No symptoms or risks identified at this time. Initial Sepsis Screen: Does the patient meet any 2 criteria? No. Patient's initial sepsis screen is negative. Does the patient have a suspected source of infection? No. Patient's initial sepsis screen is negative. Risk Assessment: Do you want to hurt yourself or someone else? Patient reports no desire to harm self or others. Onset of symptoms was May 09, 2022. 21:50 Method Of Arrival: EMS: [facility] mb9 21:50 Acuity: MERYL 2 mb9 21:50 Mechanism of Injury: Fall. mb9 21:50 Care prior to arrival: Cervical collar in place. Placed on backboard. mb9 Historical: - Allergies: 21:54 No Known Allergies; mb9 - Home Meds: 21:54 Plavix Oral [Active]; mb9 - PMHx: 21:54 GERD; Hypertension; Cerebrovascular accident; x2; Diabetes mellitus; Seizure; mb9 - PSHx: 21:54 Appendectomy; mb9 - Immunization history:: Adult Immunizations up to date. - Social history:: Smoking status: Patient denies any tobacco usage or history of. - Immunization history: Last tetanus immunization: - up to date. Screenin:50 [facility] ED Fall Risk Assessment (Adult) History of falling in the last 3 months, mb9 including since admission Yes- physiologic fall (2 pts) Confusion or Disorientation No (0 pts) Intoxicated or Sedated No (0 pts) Impaired Gait No (0 pts) Mobility Assist Device Used No (0 pt) Altered Elimination No (0 pt) Score/Fall Risk Level 0 - 2 = Low Risk Oriented to surroundings, Maintained a safe environment, Educated pt \T\ family on fall prevention, incl call for assistance when getting out of bed, Assessed \T\ reinforced patient's understanding of fall precautions. 21:50 Abuse screen: Denies threats or abuse. Nutritional screening: No deficits noted. mb9 Tuberculosis screening: No symptoms or risk factors identified. Primary Survey: 21:55 NO uncontrolled hemorrhage observed. A: The client is awake and alert. The airway is mb9 patent. The client is alert. Airway: patent, Trachea midline. Breathing/Chest: Spontaneous respiratory effort, equal unlabored respirations, breath sounds clear bilaterally, regular pattern, symmetrical chest rise and fall. Respiratory effort: unlabored, Breath sounds: clear, bilaterally. Respiratory pattern: regular, Chest inspection: symmetrical rise and fall of the chest. Circulation: No external hemorrhage present. Regular and strong central pulse, skin warm/dry/normal color. Hemorrhage: No external hemorrhage noted. Pulses: palpable right radial artery, right posterior tibial artery, right dorsalis pedis artery, left radial artery, left posterior tibial artery and left dorsalis pedis artery. Skin color: pink, Skin temperature: warm, Cardiac rhythm: sinus rhythm Heart tones present. Disability Pupils are equal, round, reactive to light and accommodation. Client is alert. Exposure/Environment: All clothing and personal items were removed. laceration to posterior head. No active bleeding noted. 22:25 Reassessment Alertness and Airway: Awake and alert. The airway is patent. Airway Patent mb9 Breathing: Spontaneous respiratory effort, equal unlabored respirations, breath sounds clear bilaterally, regular pattern with symmetrical chest rise and fall. Respiratory effort Unlabored Breath sounds Clear Respiratory pattern Regular Chest inspection Symmetrical Circulation: No external hemorrhage noted. Regular and strong central pulse, skin warm/dry/normal color. Heart rhythm Sinus rhythm Heart tones Present Pulses Palpable Color [place] Temperature Warm Disability: Pupils Pupils are equal, round, reactive to light and accomodation. Alert. Secondary Survey: 22:17 HEENT: Head Other laceration to back of head. Gastrointestinal: No deficits noted. : bb No signs and/or symptoms were reported regarding the genitourinary system. Musculoskeletal: Circulation, motion, and sensation intact. Injury Description: Laceration sustained to back of head is 2.6 to 7.5 cm long. Assessment: 21:45 Reassessment: Trauma alert called. mb9 21:57 General: Appears uncomfortable, Behavior is anxious. Pain: Denies pain. Neuro: Santos mb9 Agitation-Sedation Scale (RASS): 0 - Alert and Calm Level of Consciousness is awake, alert, obeys commands, Oriented to person, place, time, situation, Appropriate for age Nurse Recruiter are equal bilaterally Moves all extremities. Speech is normal, Facial symmetry appears normal, Pupils are PERRLA, Intact. EENT:. Cardiovascular: Heart tones S1 S2 present Capillary refill < 3 seconds is brisk in bilateral Rhythm is regular. Respiratory: Airway is patent Respiratory effort is even, unlabored, Respiratory pattern is regular, symmetrical, Breath sounds are clear bilaterally. GI: Abdomen is flat, non-distended, Bowel sounds present X 4 quads. Abd is soft and non tender X 4 quads. : No signs and/or symptoms were reported regarding the genitourinary system. Derm: 5 cm laceration noted to posterior head. No active bleeding noted. Musculoskeletal:. 22:24 Reassessment: pt taken to CT via stretcher. mb9 23:10 Reassessment: No changes from previously documented assessment. Patient and/or family mb9 updated on plan of care and expected duration. Pain level reassessed. General: Appears uncomfortable. Pain: Denies pain. Neuro: Level of Consciousness is awake, alert, obeys commands, Oriented to person, place, time, situation, none Pupils are PERRLA. Cardiovascular: Heart tones S1 S2 present Rhythm is regular. Respiratory: Airway is patent Respiratory effort is even, unlabored, Respiratory pattern is regular, symmetrical. GI: No signs and/or symptoms were reported involving the gastrointestinal system. : No signs and/or symptoms were reported regarding the genitourinary system. EENT: No signs and/or symptoms were reported regarding the EENT system. 23:55 Reassessment: No changes from previously documented assessment. Patient and/or family mb9 updated on plan of care and expected duration. Pain level reassessed. Patient is alert, oriented x 3, equal unlabored respirations, skin warm/dry/pink. Neuro: Pupils are PERRLA. Respiratory: Airway is patent. 05/10 00:32 Reassessment: ASSUMED CARE OF PT. PT LYING IN BED. ORDERED MED GIVEN. PT TOLERATED jj7 WELL. VS STABLE. AT BEDSIDE. PT IS UP FOR DISCHARGE. 00:45 Reassessment: WHILE HELPING PT UP IN BED TO MOVE INTO WHEELCHAIR FOR DISCHARGE. PT jj7 BECOMES DIAPHORETIC AND NAUSEATED.. PT BACK IN BED. DANA COWART INFORMED. ORDER FOR MEDS GIVEN. 01:14 Reassessment: PT UP TO WHEELCHAIR AND ASSISTED OUT INTO CAR. PT TOLERATED WELL. jj7 Vital Signs: 05/09 21:50 BP 138 / 70; Pulse 85; Resp 18; Temp 98.2; Pulse Ox 96% on R/A; Weight 92.99 kg; Height mb9 5 ft. 8 in. (172.72 cm); Pain 0/10; 21:58 BP 142 / 94; Pulse 78; Resp 18; Pulse Ox 100% on R/A; Pain 0/10; mb9 22:48 BP 140 / 92; Pulse 75; Resp 17; Pulse Ox 100% ; mb9 23:34 BP 136 / 69; Pulse 72; Resp 22; Pulse Ox 99% on R/A; mb9 05/10 00:07 BP 130 / 65; Pulse 77; Resp 18; Pulse Ox 100% on R/A; mb9 00:40 BP 112 / 49; Pulse 82; Resp 17; Pulse Ox 97% ; jj7 05/09 21:50 Body Mass Index 31.17 (92.99 kg, 172.72 cm) mb9 [place] Coma Score: 05/09 21:58 Eye Response: spontaneous(4). Verbal Response: oriented(5). Motor Response: obeys mb9 commands(6). Total: 15. 22:48 Eye Response: spontaneous(4). Verbal Response: oriented(5). Motor Response: obeys mb9 commands(6). Total: 15. 23:34 Eye Response: spontaneous(4). Verbal Response: oriented(5). Motor Response: obeys mb9 commands(6). Total: 15. 05/10 00:07 Eye Response: spontaneous(4). Verbal Response: oriented(5). Motor Response: obeys mb9 commands(6). Total: 15. Trauma Score (Adult): 05/09 21:58 Eye Response: spontaneous(1); Verbal Response: oriented(1); Motor Response: obeys mb9 commands(2); Systolic BP: > 89 mm Hg(4); Respiratory Rate: 10 to 29 per min(4); [place] Score: 15; Trauma Score: 12 ED Course: 21:50 Patient arrived in ED. mb9 21:50 Placed in gown. Bed in low position. Call light in reach. Side rails up X 1. Client mb9 placed on continuous cardiac and pulse oximetry monitoring. NIBP monitoring applied. library monitor on. 21:51 Ildefonso Cowart NP is PHCP. pm1 21:51 Erich Goddard MD is Attending Physician. pm1 21:54 Triage completed. mb9 21:55 Arm band placed on. C-collar applied. mb9 22:01 Missed attempt(s): 20 gauge in right forearm. Bleeding controlled, band aid applied, aa9 catheter tip intact. 22:11 Alberta Landrum RN is Primary Nurse. mb9 22:40 CT Traumagram (Head C Spine CAP W Con) In Process Unspecified. EDMS 05/10 00:01 Assist provider with laceration repair on back of head that was between 2.6 to 7.5 cm mb9 using jaron. Set up tray. Performed by Ildefonso Cowart UPS DRIVER Dressed with 4X4s, Patient tolerated well. 00:45 IV discontinued, intact, bleeding controlled, No redness/swelling at site. Pressure jj7 dressing applied. Administered Medications: 05/09 22:00 Not Given (Other Intervention Used; pt received 1 month agoo): Tetanus-Diphtheria mb9 Toxoid Adult 0.5 ml IM once; Provide Vaccine Information Statement (VIS). 23:28 Drug: Zofran (Ondansetron) 4 mg Route: IVP; Site: right antecubital; mb9 23:55 Follow up: Response: No adverse reaction mb9 23:33 Drug: morphine 4 mg Route: IVP; Infused Over: 4 mins; Site: right antecubital; mb9 23:55 Follow up: Response: No adverse reaction mb9 23:56 Drug: Lidocaine (1 %) 5 ml Volume: 5 ml; Route: Infiltration; mb9 23:56 Follow up: Response: No adverse reaction mb9 05/10 00:43 Drug: morphine 4 mg Route: IVP; Infused Over: 4 mins; Site: right antecubital; j 01:16 Follow up: Response: Pain is unchanged, physician notified j 00:52 Drug: Phenergan (promethazine) 25 mg Route: IM; Site: right vastus lateralis; 01:16 Follow up: Response: Nausea is decreased j 01:13 Drug: Flexeril (cyclobenzaprine) 10 mg Route: PO; 01:17 Follow up: Response: No adverse reaction Medication: 05/09 23:38 VIS not applicable for this client. 9 Outcome: 05/10 00:03 Discharge ordered by MD. pm1 01:18 Discharged to home via wheelchair, with significant other. 01:18 Condition: stable 01:18 Discharge instructions given to patient, significant other, Instructed on discharge instructions, medication usage, Demonstrated understanding of instructions, medications, Prescriptions given X 2. 01:19 Patient left the ED. jj7 Signatures: Dispatcher [employer] EDMS Helena Torres, RN RN bb Ildefonso Cowart, IKE UPS DRIVER pm1 Kelsey Craig RN Beatriz Troy RN RN jtee7 Alberta Landrum, RN RN mb9 Corrections: (The following items were deleted from the chart) 05/09 21:55 21:50 Chief complaint: EMS states: pt was putting up [place] decor in the attic and mb9 fell from 8-10 ft. Fall was unwitnessed and pt doesn't know if any LOC occurred. found pt on ground. Pt was 2inch laceration to back of scalpe and complains of SOB, head, and lower back pain. C-collar in place 21:55 21:54 PMHx: Cerebrovascular accident; 22:20 21:57 Derm: Skin is pink, warm \T\ dry. 22:26 21:50 Chief complaint: EMS states: pt was putting up [place] decor in the attic and mb9 fell from 8-10 ft. Fall was unwitnessed and pt doesn't know if any LOC occurred. found pt on ground. Pt was 2inch laceration to back of scalpe and complains of SOB, head, and lower back pain. C-collar in place. Pt currently on Plavix mb9
[2022-05-10] MEDS ORDERED: MORPHINE 4 MG/ML SYR ONE (00:24)
[2022-05-10] MEDS ORDERED: CYCLOBENZAPRINE 10 MG TAB ONE (00:52)
[2022-05-10] MEDS ORDERED: PROMETHAZINE INJ 25 MG/ML AMP ONE (00:52)
[2022-05-10 01:36] VITALS: TEMP 98.2
[2022-05-10 01:41] VITALS: BP 130/65; O2SAT 100
== END 2022-05-10 01:19 | disposition home or self-care (01) ==
LOC: ER 21:39
PROC: 0HQ0XZZ Repair Scalp Skin, External Approach (ICD-10-PCS; principal; 2022-05-10)
DX: S01.01XA Laceration without foreign body of scalp, initial encounter (principal); M54.50 Low back pain, unspecified; W10.9XXA Fall (on) (from) unspecified stairs and steps, initial encounter; I10 Essential (primary) hypertension; Z86.73 Personal history of transient ischemic attack (TIA), and cerebral infarction without residual deficits; Z79.01 Long term (current) use of anticoagulants
CPT/HCPCS: 85025; 80048; 36415; 86900; 86850; 82565; 86901; 70450; 72125; 71260; 74177; 96375; 96372; 96374; 99284; 12002; Q9967; J2550; J2001; J2405